=== PATIENT | female | born 1970 | race Caucasian/White ===

== ENCOUNTER 2017-03-24 09:00 | Emergency (ER) | payer MEDICAID ==
[2017-03-24] MEDS ORDERED: Doxycycline 100 MG Tab PO ONE (09:25)
[2017-03-24] MEDS ORDERED: Acetaminophen/HYDROcodone 325-5 MG Tab PO ONE (09:27)
--- NOTE | 2017-03-24 09:37 | EDM.PDOC ---
ED HPI GENERAL MEDICAL PROBLEM - General Chief Complaint: General Stated Complaint: CATALINO CHANGING COLOR AND PAINFUL Time Seen by Provider: 03/24/17 09:18 Source of Information: Reports: Patient, Family History Limitations: Reports: No Limitations - History of Present Illness INITIAL COMMENTS - FREE TEXT/NARRATIVE: 46 years old e f came to the ed this am due to pain at here left lat foot for a few days. Pt stated she felt a lump at the lateral side of her left foot as well. She is only able to walk on her heal at her left foot. Pt denied trauma, FB or be sting. No F/C or any other acute medical issues. Onset: Unknown/Unsure Onset Date: 03/23/17 Onset Time: 08:00 Duration: Hour(s): Location: Reports: Lower Extremity, Left Left Feet Pain Score (Numeric/FACES): 4 - Related Data Allergies Allergy/AdvReac Type Severity Reaction Status Date / Time citalopram Allergy Cannot Verified 03/24/17 09:10 Remember diphenhydramine HCl Allergy Hives Verified 03/24/17 09:10 [From Benadryl] gabapentin Allergy Hives Verified 03/24/17 09:10 ANTI-DEPRESSANTS Allergy Hives Uncoded 03/24/17 09:10 FLU SHOT Allergy GBS Uncoded 03/24/17 09:10 Home Meds: Home Meds Albuterol [Proventil HFA] 2 puff PO Q6H PRN 07/20/15 [History] Albuterol [Take Home: Albuterol 0.083%, 4 Neb Pack] 1 packet NEB QID 07/20/15 [ History] Tiotropium [Spiriva Handihaler] 1 puff INH DAILY 12/20/15 [History] ClonazePAM [KlonoPIN] 1 mg PO BID PRN 04/13/16 [History] Clotrimazole [Lotrimin AF 1% Crm] 30 gm TOP BID #1 tube 03/24/17 [Rx] Doxycycline [Vibra-Tabs] 100 mg PO Q12HR #20 tab 03/24/17 [Rx] Hydrocodone/Acetaminophen [Vicodin 5-300 mg Tablet] 1 each PO Q6HR PRN #12 tablet 03/24/17 [Rx] Potassium Chloride 10 meq PO DAILY 03/24/17 [History] Pregabalin [Lyrica] 200 mg PO TID 03/24/17 [History] amLODIPine [Norvasc] 5 mg PO DAILY 03/24/17 [History] buPROPion [Wellbutrin] 150 mg PO DAILY 03/24/17 [History] levETIRAcetam [Keppra] 1,000 mg PO BID 03/24/17 [History] Past Medical History HEENT History: Reports: Impaired Vision Cardiovascular History: Reports: Hypertension Respiratory History: Reports: COPD, Pneumonia, Recurrent Other Respiratory History: EMPHYSEMA Gastrointestinal History: Reports: Cholelithiasis, GERD, Irritable Bowel Syndrome Genitourinary History: Reports: Other (See Below) Other Genitourinary History: STATES HAD KIDNEY FAILURE TODDLER ET NO REASON GIVEN, 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 CARPAL TUNNEL SYNDROME Neurological History: Reports: Concussion, Migraines, Seizure Other Neuro History: STARTED IN 2013 Psychiatric History: Reports: Anxiety, Depression, Panic Attack - Infectious Disease History Infectious Disease History: Reports: Chicken Pox - Past Surgical History HEENT Surgical History: Reports: Oral Surgery, Tonsillectomy Cardiovascular Surgical History: Reports: Other (See Below) Other Cardiovascular Surgeries/Procedures: HISTORY OF LOOP HEART MONITOR IMPLANT ( WAS REMOVED ALREADY) Social & Family History - Family History Family Medical History: Noncontributory - Tobacco Use Smoking Status *Q: Current Every Day Smoker Years of Tobacco use: 37 Packs/Tins Daily: 1 Used Tobacco, but Quit: No Second Hand Smoke Exposure: Yes - Caffeine Use Caffeine Use: Reports: Soda - Recreational Drug Use Recreational Drug Use: No - Living Situation & Occupation Living situation: Reports: Single ED ROS GENERAL - Review of Systems Review Of Systems: See Below Constitutional: Reports: No Symptoms HEENT: Reports: No Symptoms Respiratory: Reports: No Symptoms Cardiovascular: Reports: No Symptoms Endocrine: Reports: No Symptoms GI/Abdominal: Reports: No Symptoms : Reports: No Symptoms Musculoskeletal: Reports: Foot Pain Skin: Reports: Rash Neurological: Reports: No Symptoms Psychiatric: Reports: No Symptoms Hematologic/Lymphatic: Reports: No Symptoms Immunologic: Reports: No Symptoms ED EXAM, GENERAL - Physical Exam Exam: See Below Exam Limited By: No Limitations General Appearance: Alert, WD/WN, Mild Distress Eye Exam: Bilateral Eye: Normal Inspection Ears: Normal External Exam Ear Exam: Bilateral Ear: Auricle Normal Nose: Normal Inspection, Normal Mucosa Throat/Mouth: Normal Inspection, Normal Lips Head: Atraumatic, Normocephalic Neck: Normal Inspection, Supple, Non-Tender Respiratory/Chest: No Respiratory Distress, Lungs Clear, Normal Breath Sounds Cardiovascular: Normal Peripheral Pulses, Regular Rate, Rhythm, No Edema Peripheral Pulses: 1+: Dorsalis Pedis (L), Dorsalis Pedis (R) GI/Abdominal: Normal Bowel Sounds (Female) Exam: Deferred Rectal (Female) Exam: Deferred Back Exam: Normal Inspection, Full Range of Motion Extremities: Other (redness of left foot, plantar aspect, minor fluctuating nodule left lat foot (0.5cmX0.5cm)) Neurological: Alert, Oriented, CN II-XII Intact, Normal Cognition, Abnormal Gait (due to foot pain) Psychiatric: Normal Affect, Normal Mood Skin Exam: Warm, Dry, Intact Lymphatic: No Adenopathy Course - Vital Signs Text/Narrative:: 46 years old e f came to the ed this am due to pain at here left lat foot for a few days. Pt stated she felt a lump at the lateral side of her left foot as well. She is only able to walk on her heal at her left foot. Pt denied trauma, FB or be sting. No F/C or any other acute medical issues. PE: WNWD w F plantar cellulitis, fungal, foliculitis left lat foot. Imaging: left foot, indurating soft tissue left foot. Official report is pending. Impression: left foot: plantar cellulitis, fungal, foliculitis left lat foot Tx: Abx. Vicodin Reexam: Improved Plan: Discharge with instructions Last Recorded V/S: Last Vital Signs Temp 36.4 C 03/24/17 10:05 Pulse 87 03/24/17 10:05 Resp 18 03/24/17 10:05 BP 112/78 03/24/17 10:05 Pulse Ox 100 03/24/17 10:05 - Orders/Labs/Meds Orders: Active Orders 24 hr Category Date Time Status Foot Comp Min 3V Lt [CR] Stat Exams 03/24/17 09:40 Taken DME for Discharge [COMM] Stat Oth 03/24/17 09:53 Ordered Meds: Medications Discontinued Medications Generic Name Dose Route Start Last Admin Trade Name Shazia PRN Reason Stop Dose Admin Hydrocodone Bitart/Acetaminophen 2 tab 03/24/17 09:27 03/24/17 09:34 Marquand 325-5 Mg PO 03/24/17 09:28 2 tab ONETIME ONE Administration Doxycycline Hyclate 200 mg 03/24/17 09:25 03/24/17 09:34 Vibra-Tabs PO 03/24/17 09:26 200 mg ONETIME ONE Administration Departure - Departure Time of Disposition: 09:53 Disposition: Home, Self-Care 01 Condition: Good Clinical Impression: Tinea pedis, left, Folliculitis Sprain of foot, left Qualifiers: Encounter type: initial encounter Qualified Code(s): S93.602A - Unspecified sprain of left foot, initial encounter - Discharge Information Prescriptions: Hydrocodone/Acetaminophen [Vicodin 5-300 mg Tablet] 1 each PO Q6HR PRN #12 tablet PRN Reason: severe pain Doxycycline [Vibra-Tabs] 100 mg PO Q12HR #20 tab Clotrimazole [Lotrimin AF 1% Crm] 30 gm TOP BID #1 tube Referrals: Garima Plunkett WIRE HARNESS DESIGN ENGINEER [Primary Care Provider] - Forms: ED Department Discharge Additional Instructions: Please apply lotrimin cream onto both feet twice daily, take motrin for moderate pain, vicodin for severe pain only, exchange your socks daily with clean socks, take Abx as recommended, please follow up with your pmd, please come back to the ed if your symptoms get worse acutely. - My Orders Last 24 Hours: My Active Orders 03/24/17 09:40 Foot Comp Min 3V Lt [CR] Stat 03/24/17 09:53 DME for Discharge [COMM] Stat - Assessment/Plan Last 24 Hours: My Active Orders 03/24/17 09:40 Foot Comp Min 3V Lt [CR] Stat 03/24/17 09:53 DME for Discharge [COMM] Stat
[2017-03-24 10:06] VITALS: BP 112/78
--- NOTE | 2017-03-26 12:01 | CR ---
INDICATION: Left foot pain, lateral side, no history of trauma. LEFT FOOT: Three views of the left foot revealed posterior calcaneal spur of small size. No other bone or joint abnormality was identified - no acute fracture or dislocation was seen. MICHAELD
== END 2017-03-24 10:05 | disposition home or self-care (01) ==
LOC: FB.ED 09:00
DX: S93.602A Unspecified sprain of left foot, initial encounter (principal); B35.3 Tinea pedis; L73.9 Follicular disorder, unspecified; I10 Essential (primary) hypertension; J44.9 Chronic obstructive pulmonary disease, unspecified; F32.9 Major depressive disorder, single episode, unspecified; F41.9 Anxiety disorder, unspecified; F17.210 Nicotine dependence, cigarettes, uncomplicated; Z87.01 Personal history of pneumonia (recurrent); Z88.8 Allergy status to other drugs, medicaments and biological substances; Z79.899 Other long term (current) drug therapy; X58.XXXA Exposure to other specified factors, initial encounter
CPT/HCPCS: 73630; 99283; A9270

== ENCOUNTER 2017-06-15 20:56 | Emergency (ER) | payer MEDICAID ==
[2017-06-15] MEDS ORDERED: Ondansetron 4 MG/2 ML SDV IVPUSH ONE (21:02)
[2017-06-15] MEDS ORDERED: Sodium Chloride 0.9% 1,000 ML IV ONE (21:02)
[2017-06-15] MEDS ORDERED: Alum Hydroxide/Mag Hydroxide 15 ML, Lidocaine 2% 15 ML PO ONE ×2 (21:03)
[2017-06-15] MEDS ORDERED: Pantoprazole 40 MG in Sodium Chloride 0.9% 100 ML IV ONE (21:03)
[2017-06-15 21:22] VITALS: BP 122/85
[2017-06-15] MEDS ORDERED: Sodium Chloride 0.9% 10 ML Syringe FLUSH PRN (21:34)
[2017-06-15] MEDS ORDERED: Pantoprazole 40 MG Vial IVPUSH ONE (22:00)
--- NOTE | 2017-06-15 22:38 | EDM.PDOC ---
ED HPI GENERAL MEDICAL PROBLEM - General Chief Complaint: Gastrointestinal Problem Stated Complaint: PUKING,DIARRHEA,ABD PAIN Time Seen by Provider: 06/15/17 21:18 Source of Information: Reports: Patient History Limitations: Reports: No Limitations - History of Present Illness INITIAL COMMENTS - FREE TEXT/NARRATIVE: 47 y.o.f with COPD, Fibromyalgia, disabled, came to the ed due to acute onset of n/v/d this am. Pt was not estella to eat and drink because of sever N/V/D. She has mid upper abd pain as well. BP 122/85 HR 104 No F/C Onset Date: 06/15/17 Onset Time: 06:00 Duration: Hour(s): Location: Reports: Abdomen Quality: Reports: Burning Severity: Mild Improves with: Reports: Rest Worsens with: Reports: Eating Context: Reports: Other (?) Associated Symptoms: Reports: Nausea/Vomiting, Other (diahhrea) Abdominal Pain Score (Numeric/FACES): 9 - Related Data Allergies Allergy/AdvReac Type Severity Reaction Status Date / Time citalopram Allergy Cannot Verified 06/15/17 21:14 Remember diphenhydramine HCl Allergy Hives Verified 03/24/17 09:10 [From Benadryl] gabapentin Allergy Hives Verified 06/15/17 21:14 ANTI-DEPRESSANTS Allergy Hives Uncoded 06/15/17 21:14 FLU SHOT Allergy GBS Uncoded 06/15/17 21:14 Home Meds: Home Meds Albuterol [Proventil HFA] 2 puff PO Q6H PRN 07/20/15 [History] Albuterol [Take Home: Albuterol 0.083%, 4 Neb Pack] 1 packet NEB QID 07/20/15 [ History] Tiotropium [Spiriva Handihaler] 1 puff INH DAILY 12/20/15 [History] ClonazePAM [KlonoPIN] 1 mg PO BID PRN 04/13/16 [History] Potassium Chloride 10 meq PO DAILY 03/24/17 [History] Pregabalin [Lyrica] 200 mg PO TID 03/24/17 [History] amLODIPine [Norvasc] 5 mg PO DAILY 03/24/17 [History] buPROPion [Wellbutrin] 150 mg PO DAILY 03/24/17 [History] levETIRAcetam [Keppra] 1,000 mg PO BID 03/24/17 [History] Ondansetron [Zofran ODT] 4 mg PO Q6H PRN #10 tab.dis 06/15/17 [Rx] Pantoprazole Sodium [Protonix] 40 mg PO DAILY #20 suspdr.pkt 06/15/17 [Rx] Past Medical History HEENT History: Reports: Impaired Vision Cardiovascular History: Reports: Hypertension Respiratory History: Reports: COPD, Pneumonia, Recurrent Other Respiratory History: EMPHYSEMA Gastrointestinal History: Reports: Cholelithiasis, GERD, Irritable Bowel Syndrome Genitourinary History: Reports: Other (See Below) Other Genitourinary History: STATES HAD KIDNEY FAILURE TODDLER ET NO REASON GIVEN, 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 CARPAL TUNNEL SYNDROME Neurological History: Reports: Concussion, Migraines, Seizure Other Neuro History: STARTED IN 2013 Psychiatric History: Reports: Anxiety, Depression, Panic Attack - Infectious Disease History Infectious Disease History: Reports: Chicken Pox - Past Surgical History HEENT Surgical History: Reports: Oral Surgery, Tonsillectomy Cardiovascular Surgical History: Reports: Other (See Below) Other Cardiovascular Surgeries/Procedures: HISTORY OF LOOP HEART MONITOR IMPLANT ( WAS REMOVED ALREADY) Social & Family History - Family History Family Medical History: Noncontributory - Tobacco Use Smoking Status *Q: Current Every Day Smoker Years of Tobacco use: 37 Packs/Tins Daily: 1 Used Tobacco, but Quit: No Second Hand Smoke Exposure: Yes - Caffeine Use Caffeine Use: Reports: Soda - Recreational Drug Use Recreational Drug Use: No - Living Situation & Occupation Living situation: Reports: Single ED ROS GENERAL - Review of Systems Review Of Systems: See Below Constitutional: Reports: Weakness, Fatigue HEENT: Reports: No Symptoms Respiratory: Reports: No Symptoms Cardiovascular: Reports: No Symptoms Endocrine: Reports: No Symptoms GI/Abdominal: Reports: Diarrhea, Nausea : Reports: No Symptoms Musculoskeletal: Reports: No Symptoms Skin: Reports: No Symptoms Neurological: Reports: No Symptoms Psychiatric: Reports: No Symptoms Hematologic/Lymphatic: Reports: No Symptoms Immunologic: Reports: No Symptoms ED EXAM, GI/ABD - Physical Exam Exam: See Below Exam Limited By: No Limitations General Appearance: Alert, WD/WN, Mild Distress, Obese Eyes: Bilateral: Normal Appearance Ears: Normal External Exam Nose: Normal Inspection Throat/Mouth: Normal Inspection Head: Atraumatic, Normocephalic Neck: Normal Inspection, Supple, Non-Tender Respiratory/Chest: No Respiratory Distress, Lungs Clear Cardiovascular: Normal Peripheral Pulses, Regular Rate, Rhythm GI/Abdominal Exam: Tender (epigastric) (Female) Exam: Deferred Rectal (Female) Exam: Deferred Back Exam: Normal Inspection, Full Range of Motion Extremities: Normal Inspection, Normal Range of Motion Neurological: Alert, Oriented, CN II-XII Intact, Normal Cognition, Normal Gait Psychiatric: Normal Affect, Normal Mood Skin Exam: Warm, Dry, Intact Lymphatic: No Adenopathy Course - Vital Signs Text/Narrative:: 47 y.o.f with COPD, Fibromyalgia, disabled, came to the ed due to acute onset of n/v/d this am. Pt was not estella to eat and drink because of sever N/V/D. She has mid upper abd pain as well. BP 122/85 HR 104 No F/C PE: Dry mucosal membrane, epigastric pain Labs: elevated WBC possible due to her vomiting Impression: Gastroenteritis, dehydration, gastritis. Tx: Zofran, Protonix, GI cocktail, NS Reexam; Pt was doing better, was able to drink water and requested to be d/c because her ride is waiting. Plan: D/C with instructions Last Recorded V/S: Last Vital Signs Temp 35.9 C 06/15/17 21:18 Pulse 104 H 06/15/17 21:18 Resp 20 06/15/17 21:18 BP 122/85 06/15/17 21:18 Pulse Ox 98 06/15/17 21:18 - Orders/Labs/Meds Orders: Active Orders 24 hr Category Date Time Status Saline Lock Insert [OM.PC] Routine Oth 06/15/17 21:34 Ordered Labs: Laboratory Tests 06/15/17 06/15/17 Range/Units 21:25 21:25 WBC 17.6 H (4.5-12.0) X10-3/uL RBC 5.70 H (3.23-5.20) x10(6)uL Hgb 17.0 H (11.5-15.5) g/dL Hct 51.3 (30.0-51.3) % MCV 90.0 (80-96) fL MCH 29.8 (27.7-33.6) pg MCHC 33.1 (32.2-35.4) g/dL RDW 14.4 (11.5-15.5) % Plt Count 259 (125-369) X10(3)uL MPV 9.1 (7.4-10.4) fL Neut % (Auto) 74.7 (46-82) % Lymph % (Auto) 15.3 (13-37) % Latimer % (Auto) 6.1 (4-12) % Eos % (Auto) 3 (1.0-5.0) % Baso % (Auto) 1 (0-2) % Neut # (Auto) 13.0 H (1.6-8.3) # Lymph # (Auto) 2.7 (0.6-5.0) # Latimer # (Auto) 1.1 (0.0-1.3) # Eos # (Auto) 0.5 (0.0-0.8) # Baso # (Auto) 0.2 (0.0-0.2) # Sodium 137 (135-145) mmol/L Potassium 3.9 (3.5-5.3) mmol/L Chloride 104 (100-110) mmol/L Carbon Dioxide 21 L (23-29) mmol/L BUN 19 D (5-20) mg/dL Creatinine 0.9 (0.6-1.3) mg/dL Est Cr Clr Drug Dosing 78.79 mL/min Estimated GFR (MDRD) > 60 (>60) BUN/Creatinine Ratio 21.1 H (9-20) Glucose 138 H (80-116) mg/dL Calcium 9.7 (8.6-10.2) mg/dL Total Bilirubin 0.9 (0.1-1.3) mg/dL Direct Bilirubin 0.2 (0.1-0.2) mg/dL AST 25 (5-27) IU/L ALT 33 H D (14-26) IU/L Alkaline Phosphatase 133 H (56-112) IU/L Total Protein 8.7 H (6.0-8.0) g/dL Albumin 4.7 (3.5-5.2) g/dL Amylase 37 (28-100) U/L Meds: Medications Discontinued Medications Generic Name Dose Route Start Last Admin Trade Name Freq PRN Reason Stop Dose Admin Al Hydroxide/Mg Hydroxide 15 0 ml 06/15/17 21:03 06/15/17 22:03 ml/ Lidocaine HCl 15 ml PO 06/15/17 21:04 30 ml ONETIME ONE Administration Sodium Chloride 1,000 mls @ 999 mls/hr 06/15/17 21:02 06/15/17 21:44 Normal Saline IV 06/15/17 22:02 999 mls/hr .BOLUS ONE Administration Pantoprazole Sodium 40 mg/ 100 mls @ 200 mls/hr 06/15/17 21:03 06/15/17 21:58 Sodium Chloride IV 06/15/17 21:32 Not Given .BOLUS ONE Ondansetron HCl 8 mg 06/15/17 21:02 06/15/17 21:51 Zofran IVPUSH 06/15/17 21:03 8 mg ONETIME ONE Administration Pantoprazole Sodium 40 mg 06/15/17 22:00 06/15/17 22:02 Protonix Iv IVPUSH 06/15/17 22:01 40 mg ONETIME ONE Administration Sodium Chloride 10 ml 06/15/17 21:34 06/15/17 21:43 Saline Flush FLUSH 10 ml ASDIRECTED PRN Administration Keep Vein Open Departure - Departure Time of Disposition: 22:42 Disposition: Home, Self-Care 01 Condition: Good Clinical Impression: Gastroenteritis, Dehydration Gastritis Qualifiers: Gastritis type: unspecified gastritis Chronicity: acute Gastritis bleeding: without bleeding Qualified Code(s): K29.00 - Acute gastritis without bleeding - Discharge Information Prescriptions: Ondansetron [Zofran ODT] 4 mg PO Q6H PRN #10 tab.dis PRN Reason: Nausea Pantoprazole Sodium [Protonix] 40 mg PO DAILY #20 suspdr.pkt Referrals: Garima Plunkett AUTOMOTIVE PARTS COUNTER PERSON [Primary Care Provider] - Forms: ED Department Discharge Additional Instructions: Please advance diet diet as tolerated. Please take the meds as recommended, please advance diet as tolerated, please f/u, please come back if your symptoms get worse acutely. - My Orders Last 24 Hours: My Active Orders 06/15/17 21:34 Saline Lock Insert [OM.PC] Routine - Assessment/Plan Last 24 Hours: My Active Orders 06/15/17 21:34 Saline Lock Insert [OM.PC] Routine
== END 2017-06-15 23:01 | disposition home or self-care (01) ==
LOC: FB.ED 20:56
DX: K52.9 Noninfective gastroenteritis and colitis, unspecified (principal); K29.00 Acute gastritis without bleeding; E86.0 Dehydration; I10 Essential (primary) hypertension; K21.9 Gastro-esophageal reflux disease without esophagitis; G43.909 Migraine, unspecified, not intractable, without status migrainosus; F41.9 Anxiety disorder, unspecified; F32.9 Major depressive disorder, single episode, unspecified; F17.210 Nicotine dependence, cigarettes, uncomplicated; Z88.8 Allergy status to other drugs, medicaments and biological substances; Z79.899 Other long term (current) drug therapy; Z87.01 Personal history of pneumonia (recurrent)
CPT/HCPCS: 36415; 80048; 80076; 82150; 85025; 96361; 96374; 96375; 99284; A9270; C9113; J2405; J7040; J7050

== ENCOUNTER 2017-10-13 18:12 | Emergency (ER) | payer MEDICAID ==
--- NOTE | 2017-10-13 18:22 | EDM.PDOC ---
ED HPI GENERAL MEDICAL PROBLEM - General Chief Complaint: Back Pain or Injury Stated Complaint: BACK PAIN Time Seen by Provider: 10/13/17 18:12 Source of Information: Reports: Patient, Family History Limitations: Reports: Physical Impairment - History of Present Illness INITIAL COMMENTS - FREE TEXT/NARRATIVE: 47 y.o.w.f with a h/o chronic low back pain her lasr MRI from 09/14/2017 showed diffuse degenerative changes with areas of neuronal narrowing of her lumbar spine. The current plan is physical Thx and then Surgery. Pt denied new trauma, she got up this morning and felt her mid lower back pain is worse. she denies stool incontinence. However, her urine incontinence is chronic. She felt as well , her numbness of left leg down to the heal is a little worse. Her home arian did not help. No N/V/D or any other acute medical issues. BP 157/100 temp 37.1 pulse 78 Pulse ox 97% on RA Onset Date: 10/12/17 Onset Time: 08:00 Duration: Day(s):, Getting Worse, Intermittent Location: Reports: Back Back Pain Score (Numeric/FACES): 10 - Related Data Allergies Allergy/AdvReac Type Severity Reaction Status Date / Time citalopram Allergy Cannot Verified 10/13/17 19:07 Remember diphenhydramine HCl Allergy Hives Verified 10/13/17 19:07 [From Benadryl] gabapentin Allergy Hives Verified 10/13/17 19:07 ANTI-DEPRESSANTS Allergy Hives Uncoded 10/13/17 19:07 FLU SHOT Allergy GBS Uncoded 10/13/17 19:07 Home Meds: Home Meds Albuterol [Proventil HFA] 2 puff PO Q6H PRN 07/20/15 [History] Albuterol [Take Home: Albuterol 0.083%, 4 Neb Pack] 1 packet NEB QID 07/20/15 [ History] Tiotropium [Spiriva Handihaler] 1 puff INH DAILY 12/20/15 [History] ClonazePAM [KlonoPIN] 1 mg PO BID PRN 04/13/16 [History] Potassium Chloride 10 meq PO DAILY 03/24/17 [History] Pregabalin [Lyrica] 200 mg PO TID 03/24/17 [History] amLODIPine [Norvasc] 5 mg PO DAILY 03/24/17 [History] buPROPion [Wellbutrin] 150 mg PO DAILY 03/24/17 [History] levETIRAcetam [Keppra] 1,000 mg PO BID 03/24/17 [History] Ondansetron [Zofran ODT] 4 mg PO Q6H PRN #10 tab.dis 06/15/17 [Rx] Pantoprazole Sodium [Protonix] 40 mg PO DAILY #20 suspdr.pkt 06/15/17 [Rx] Past Medical History HEENT History: Reports: Impaired Vision Cardiovascular History: Reports: Hypertension Respiratory History: Reports: COPD, Pneumonia, Recurrent Other Respiratory History: EMPHYSEMA Gastrointestinal History: Reports: Cholelithiasis, GERD, Irritable Bowel Syndrome Genitourinary History: Reports: Other (See Below) Other Genitourinary History: STATES HAD KIDNEY FAILURE TODDLER ET NO REASON GIVEN, 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 CARPAL TUNNEL SYNDROME Neurological History: Reports: Concussion, Migraines, Seizure Other Neuro History: STARTED IN 2013 Psychiatric History: Reports: Anxiety, Depression, Panic Attack - Infectious Disease History Infectious Disease History: Reports: Chicken Pox - Past Surgical History HEENT Surgical History: Reports: Oral Surgery, Tonsillectomy Cardiovascular Surgical History: Reports: Other (See Below) Other Cardiovascular Surgeries/Procedures: HISTORY OF LOOP HEART MONITOR IMPLANT ( WAS REMOVED ALREADY) Social & Family History - Family History Family Medical History: Noncontributory - Tobacco Use Smoking Status *Q: Current Every Day Smoker Years of Tobacco use: 37 Packs/Tins Daily: 1 Used Tobacco, but Quit: No Second Hand Smoke Exposure: Yes - Caffeine Use Caffeine Use: Reports: Soda - Recreational Drug Use Recreational Drug Use: No - Living Situation & Occupation Living situation: Reports: Single ED ROS GENERAL - Review of Systems Review Of Systems: See Below Constitutional: Reports: No Symptoms HEENT: Reports: No Symptoms Respiratory: Reports: No Symptoms Cardiovascular: Reports: No Symptoms Endocrine: Reports: No Symptoms GI/Abdominal: Reports: No Symptoms : Reports: No Symptoms Musculoskeletal: Reports: Back Pain Skin: Reports: No Symptoms Neurological: Reports: No Symptoms Psychiatric: Reports: No Symptoms Hematologic/Lymphatic: Reports: No Symptoms Immunologic: Reports: No Symptoms ED EXAM,LOWER BACK PAIN/INJURY - Physical Exam Exam: See Below Exam Limited By: Physical Impairment General Appearance: Alert, WD/WN, Obese Eye Exam: Bilateral Eye: Normal Inspection Ears: Normal External Exam, Normal Canal Nose: Normal Inspection, Normal Mucosa, No Blood Throat/Mouth: Normal Inspection, Normal Lips Head: Atraumatic, Normocephalic Neck: Normal Inspection, Supple, Non-Tender, Full Range of Motion Respiratory/Chest: No Respiratory Distress, Lungs Clear, Normal Breath Sounds Cardiovascular: Normal Peripheral Pulses, Regular Rate, Rhythm GI/Abdominal: Normal Bowel Sounds, Soft, Non-Tender (Female) Exam: Deferred Rectal (Female) Exam: Deferred Back Exam: Normal Inspection, Decreased Range of Motion (mid lower back), Muscle Spasm Extremities: Normal Inspection, Normal Range of Motion, Normal Capillary Refill Neurological: Alert, Normal Mood/Affect, CN II-XII Intact, Oriented x 3, Abnormal Gait (due to low back pain), Difficulty Walking Psychiatric: Normal Affect, Normal Mood Skin Exam: Warm, Dry, Intact, Normal Color, No Rash Lymphatic: No Adenopathy Course - Vital Signs Text/Narrative:: 47 y.o.w.f with a h/o chronic low back pain her lasr MRI from 09/14/2017 showed diffuse degenerative changes with areas of neuronal narrowing of her lumbar spine. The current plan is physical Thx and then Surgery. Pt denied new trauma, she got up this morning and felt her mid lower back pain is worse. she denies stool incontinence. However, her urine incontinence is chronic. She felt as well , her numbness of left leg down to the heal is a little worse. Her home arian did not help. No N/V/D or any other acute medical issues. BP 157/100 temp 37.1 pulse 78 Pulse ox 97% on RA P{E; WNWD very pleasant WF with low back pain Imaging: last MRI 09/14/2017 showed gen deg disease with bilat naural foramina narrowing. Impression: chronic low back pain with exacerbation Tx: Toradol, ICE take home percocet. Reexam: Pt was able to ambulate without help Plan: D/C with instructions Last Recorded V/S: Last Vital Signs Temp 36.8 C 10/13/17 18:17 Pulse 70 10/13/17 18:17 Resp 16 10/13/17 18:17 BP 126/98 H 10/13/17 19:00 Pulse Ox 98 10/13/17 18:17 - Orders/Labs/Meds Orders: Active Orders 24 hr Category Date Time Status Cooling Warming Measures [RC] ASDIRECTED Care 10/13/17 18:24 Active Ice Bag [Ice Therapy] [OM.PC] Routine Oth 10/13/17 18:24 Ordered Meds: Medications Discontinued Medications Generic Name Dose Route Start Last Admin Trade Name Shazia PRN Reason Stop Dose Admin Ketorolac Tromethamine 60 mg 10/13/17 18:23 10/13/17 18:33 Toradol IM 10/13/17 18:24 60 mg ONETIME ONE Administration Departure - Departure Time of Disposition: 18:54 Disposition: Home, Self-Care 01 Condition: Good Clinical Impression: Low back pain Qualifiers: Chronicity: unspecified Back pain laterality: midline Sciatica presence: with sciatica Sciatica laterality: sciatica of left side Qualified Code(s): M54.42 - Lumbago with sciatica, left side - Discharge Information Instructions: Back Pain, Adult, [id number] Referrals: Garima Plunkett NEWSPAPER VENDOR [Primary Care Provider] - Forms: ED Department Discharge Additional Instructions: Please apply ICE to lower back, please take motrin for mod pain. percocet fpr severe pain only. Please f/u, come back if your symptoms get worse acutely - My Orders Last 24 Hours: My Active Orders 10/13/17 18:24 Cooling Warming Measures [RC] ASDIRECTED Ice Bag [Ice Therapy] [OM.PC] Routine - Assessment/Plan Last 24 Hours: My Active Orders 10/13/17 18:24 Cooling Warming Measures [RC] ASDIRECTED Ice Bag [Ice Therapy] [OM.PC] Routine
[2017-10-13] MEDS ORDERED: Ketorolac 60 MG/2 ML SDV IM ONE (18:23)
[2017-10-13] MEDS ORDERED: Acetaminophen/oxyCODONE 325-5 MG Tab PO ONE (19:02)
[2017-10-13 19:15] VITALS: BP 126/98
== END 2017-10-13 19:00 | disposition home or self-care (01) ==
LOC: FB.ED 18:12
DX: M54.42 Lumbago with sciatica, left side (principal); I10 Essential (primary) hypertension; J44.9 Chronic obstructive pulmonary disease, unspecified; K21.9 Gastro-esophageal reflux disease without esophagitis; F17.210 Nicotine dependence, cigarettes, uncomplicated; Z88.8 Allergy status to other drugs, medicaments and biological substances; Z79.899 Other long term (current) drug therapy
CPT/HCPCS: 96372; 99283; J1885; A9270-GY

== ENCOUNTER 2017-12-26 19:51 | Emergency (ER) | payer MEDICAID ==
[2017-12-26 20:17] VITALS: BP 115/73
[2017-12-26] MEDS ORDERED: Morphine 4 MG/ML Syringe IM ONE (20:26)
--- NOTE | 2017-12-27 05:28 | ER ---
DATE SEEN: 12/26/2017 CHIEF COMPLAINT: Neck pain. HISTORY OF PRESENT ILLNESS: This is a 47-year-old female complaining of pain in the left side of the neck and swelling. Her daughter noticed that she was so bruised around that area. This started tonight. No chest pain or shortness of breath. PAST MEDICAL HISTORY: Chronic back pain moderate to severe. SOCIAL HISTORY: Smoker. PHYSICAL EXAMINATION: GENERAL: Not in distress. VITAL SIGNS: Blood pressure is normal. Pulse is 96, temperature 97.5. HEAD: Normal size. NECK: No thyromegaly. There is lymphadenopathy on the left side. OROPHARYNX: No lesions. She is edentulous. CHEST: Clear. MUSCULOSKELETAL: Lower back, she is in a wheelchair. Normal and symmetric deep tendon reflexes. LABS: Strep negative. FINAL IMPRESSION: 1. Lymphadenitis, cervical. 2. Chronic back pain with moderate exacerbation. Treatment is morphine 4 mg IM, supportive therapy with Tylenol and ibuprofen, and then see PCP tomorrow morning. TIME SEEN: 2000 hours. /[id number] ASHLEY/JOE
== END 2017-12-26 20:50 | disposition home or self-care (01) ==
LOC: FB.ED 19:51
DX: I88.9 Nonspecific lymphadenitis, unspecified (principal); M54.9 Dorsalgia, unspecified; G89.29 Other chronic pain
CPT/HCPCS: 87081; 87880; 96372; 99283; J2270

== ENCOUNTER 2018-01-15 18:22 | Emergency (ER) | payer MEDICAID ==
--- NOTE | 2018-01-15 19:27 | EDM.PDOC ---
ED HPI GENERAL MEDICAL PROBLEM - General Chief Complaint: General Stated Complaint: BODY ACHES, SICK 4 DAYS Time Seen by Provider: 01/15/18 19:22 Source of Information: Reports: Patient History Limitations: Reports: No Limitations - History of Present Illness INITIAL COMMENTS - FREE TEXT/NARRATIVE: Complains of 4 days of bodyaches, cough and diarrhea. Patient believes may be due to fibromyalgia flare. Duration: Day(s): (4) Location: Reports: Other (Generalized) Quality: Reports: Ache Severity: Moderate Improves with: Reports: None Worsens with: Reports: None Associated Symptoms: Reports: Cough. Denies: Nausea/Vomiting whole body Pain Score (Numeric/FACES): 10 - Related Data Allergies Allergy/AdvReac Type Severity Reaction Status Date / Time citalopram Allergy Cannot Verified 01/15/18 21:16 Remember diphenhydramine HCl Allergy Hives Verified 01/15/18 21:16 [From Benadryl] gabapentin Allergy Hives Verified 01/15/18 21:16 ANTI-DEPRESSANTS Allergy Hives Uncoded 01/15/18 21:16 FLU SHOT Allergy GBS Uncoded 01/15/18 21:16 Home Meds: Home Meds Albuterol [Proventil HFA] 2 puff PO Q6H PRN 07/20/15 [History] Albuterol [Take Home: Albuterol 0.083%, 4 Neb Pack] 1 packet NEB QID 07/20/15 [ History] Tiotropium [Spiriva Handihaler] 1 puff INH DAILY 12/20/15 [History] ClonazePAM [KlonoPIN] 1 mg PO BID PRN 04/13/16 [History] Potassium Chloride 10 meq PO DAILY 03/24/17 [History] Pregabalin [Lyrica] 200 mg PO TID 03/24/17 [History] amLODIPine [Norvasc] 5 mg PO DAILY 03/24/17 [History] buPROPion [Wellbutrin] 150 mg PO DAILY 03/24/17 [History] levETIRAcetam [Keppra] 1,000 mg PO BID 03/24/17 [History] Loperamide [Imodium] 2 mg PO Q6H PRN #15 cap 01/15/18 [Rx] Past Medical History HEENT History: Reports: Impaired Vision Cardiovascular History: Reports: Hypertension, Other (See Below) Other Cardiovascular History: Low potassium Respiratory History: Reports: COPD, Pneumonia, Recurrent Other Respiratory History: EMPHYSEMA Gastrointestinal History: Reports: Cholelithiasis, GERD, Irritable Bowel Syndrome Genitourinary History: Reports: Other (See Below) Other Genitourinary History: STATES HAD KIDNEY FAILURE TODDLER ET NO REASON GIVEN, 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 CARPAL TUNNEL SYNDROME Neurological History: Reports: Concussion, Migraines, Seizure Other Neuro History: STARTED IN 2013 Psychiatric History: Reports: Anxiety, Depression, Panic Attack - Infectious Disease History Infectious Disease History: Reports: Chicken Pox - Past Surgical History HEENT Surgical History: Reports: Oral Surgery, Tonsillectomy Cardiovascular Surgical History: Reports: Other (See Below) Other Cardiovascular Surgeries/Procedures: HISTORY OF LOOP HEART MONITOR IMPLANT ( WAS REMOVED ALREADY) GI Surgical History: Reports: Cholecystectomy Female Surgical History: Reports: Hysterectomy Social & Family History - Family History Family Medical History: Noncontributory - Tobacco Use Smoking Status *Q: Current Every Day Smoker Tobacco Use Within Last Twelve Months: Cigarettes Years of Tobacco use: 30 Packs/Tins Daily: 1 Used Tobacco, but Quit: No Second Hand Smoke Exposure: Yes - Caffeine Use Caffeine Use: Reports: Soda - Alcohol Use Alcohol Use in Last Twelve Months: No - Recreational Drug Use Recreational Drug Use: No - Living Situation & Occupation Living situation: Reports: Single ED ROS GENERAL - Review of Systems Review Of Systems: See Below Constitutional: Reports: Fatigue, Other (has not eaten in 2 days due to diarrhea ) HEENT: Reports: No Symptoms Respiratory: Reports: Cough. Denies: Shortness of Breath Cardiovascular: Reports: No Symptoms Endocrine: Reports: No Symptoms GI/Abdominal: Reports: Abdominal Pain, Diarrhea. Denies: Vomiting : Reports: No Symptoms Musculoskeletal: Reports: Other (generalized pain) Skin: Reports: No Symptoms Neurological: Reports: No Symptoms Psychiatric: Reports: No Symptoms Hematologic/Lymphatic: Reports: No Symptoms Immunologic: Reports: No Symptoms ED EXAM, GENERAL - Physical Exam Exam: See Below Exam Limited By: No Limitations General Appearance: Alert, WD/WN, No Apparent Distress Nose: Normal Inspection Throat/Mouth: Normal Inspection, Normal Lips, Normal Gums, Normal Oropharynx, Normal Voice, No Airway Compromise Head: Atraumatic, Normocephalic Neck: Normal Inspection, Supple Respiratory/Chest: No Respiratory Distress, Lungs Clear, Normal Breath Sounds, No Accessory Muscle Use Cardiovascular: Regular Rate, Rhythm, No Gallop, No Murmur, No Rub GI/Abdominal: Normal Bowel Sounds, Soft, No Distention, No Mass, Tender (mild RLQ) (Female) Exam: Deferred Rectal (Female) Exam: Deferred Extremities: Normal Inspection, Normal Range of Motion Neurological: Alert, Oriented, Normal Cognition Psychiatric: Normal Affect, Normal Mood Skin Exam: Warm, Dry, Intact EKG INTERPRETATION EKG Date: 01/15/18 Time: 19:30 Rhythm: NSR Rate (Beats/Min): 97 EKG Interpretation Comments: No ischemic abnormalities Course - Vital Signs Last Recorded V/S: Last Vital Signs Temp 37.2 C 01/15/18 22:30 Pulse 86 01/15/18 22:30 Resp 16 01/15/18 22:30 BP 108/81 01/15/18 22:30 Pulse Ox 96 01/15/18 22:30 - Orders/Labs/Meds Orders: Active Orders 24 hr Category Date Time Status EKG Documentation Completion [RC] ASDIRECTED Care 01/15/18 19:21 Active CXR [Chest 2V] [CR] Stat Exams 01/15/18 19:21 Taken CULTURE URINE [RM] Stat Lab 01/15/18 20:41 Ordered HCG QUALITATIVE,URINE [URCHEM] Stat Lab 01/15/18 20:29 Ordered UA W/MICROSCOPIC [URIN] Stat Lab 01/15/18 20:29 Ordered UA W/MICROSCOPIC [URIN] Stat Lab 01/15/18 22:55 Ordered EKG 12 Lead [EK] Stat Ther 01/15/18 19:21 Ordered Labs: Laboratory Tests 01/15/18 01/15/18 01/15/18 Range/Units 19:35 19:35 20:29 WBC 8.9 (4.5-12.0) X10-3/uL RBC 5.55 H (3.23-5.20) x10(6)uL Hgb 17.1 H (11.5-15.5) g/dL Hct 50.8 (30.0-51.3) % MCV 91.6 (80-96) fL MCH 30.9 (27.7-33.6) pg MCHC 33.7 (32.2-35.4) g/dL RDW 12.8 (11.5-15.5) % Plt Count 163 (125-369) X10(3)uL MPV 9.6 (7.4-10.4) fL Neut % (Auto) 64.0 (46-82) % Lymph % (Auto) 22.7 (13-37) % [place] % (Auto) 10.8 (4-12) % Eos % (Auto) 0 L (1.0-5.0) % Baso % (Auto) 2 (0-2) % Neut # (Auto) 5.7 (1.6-8.3) # Lymph # (Auto) 2.0 (0.6-5.0) # [place] # (Auto) 1.0 (0.0-1.3) # Eos # (Auto) 0.0 (0.0-0.8) # Baso # (Auto) 0.2 (0.0-0.2) # Sodium 138 (135-145) mmol/L Potassium 4.3 (3.5-5.3) mmol/L Chloride 101 (100-110) mmol/L Carbon Dioxide 25 (21-32) mmol/L BUN 16 (7-18) mg/dL Creatinine 2.0 H* (0.55-1.02) mg/dL Est Cr Clr Drug Dosing TNP Estimated GFR (MDRD) 27 L (>60) BUN/Creatinine Ratio 8.0 L (9-20) Glucose 104 (80-116) mg/dL Calcium 9.4 (8.6-10.2) mg/dL Total Bilirubin 0.3 (0.1-1.3) mg/dL AST 35 H (5-25) IU/L ALT 37 H (12-36) U/L Alkaline Phosphatase 98 (56-112) IU/L Total Protein 7.8 (6.0-8.0) g/dL Albumin 3.8 (3.5-5.2) g/dL Globulin 4.0 g/dL Albumin/Globulin Ratio 1.0 Urine Color Yellow (YELLOW) Urine Appearance Slightly cloudy (CLEAR) Urine pH 5.0 (5.0-6.5) Ur Specific [place] 1.020 (1.010-1.025) Urine Protein Trace (NEGATIVE) mg/dL Urine Glucose (UA) Normal (NEGATIVE) mg/dL Urine Ketones Negative (NEGATIVE) mg/dL Urine Occult Blood Moderate H (NEGATIVE) Urine Nitrite Negative (NEGATIVE) Urine Bilirubin Small H (NEGATIVE) Urine Urobilinogen Normal (NEGATIVE) mg/dL Ur Leukocyte Esterase Negative (NEGATIVE) Urine RBC 10-20 H (0) Urine WBC 5-10 (0) Ur Squamous Epith Cells Many H (NS,R,O) Urine Bacteria Many H (NS) Hyaline Casts Moderate H (NS) Urine HCG, Qual (NEGATIVE) 01/15/18 01/15/18 01/15/18 Range/Units 20:29 22:55 23:10 WBC (4.5-12.0) X10-3/uL RBC (3.23-5.20) x10(6)uL Hgb (11.5-15.5) g/dL Hct (30.0-51.3) % MCV (80-96) fL MCH (27.7-33.6) pg MCHC (32.2-35.4) g/dL RDW (11.5-15.5) % Plt Count (125-369) X10(3)uL MPV (7.4-10.4) fL Neut % (Auto) (46-82) % Lymph % (Auto) (13-37) % [place] % (Auto) (4-12) % Eos % (Auto) (1.0-5.0) % Baso % (Auto) (0-2) % Neut # (Auto) (1.6-8.3) # Lymph # (Auto) (0.6-5.0) # [place] # (Auto) (0.0-1.3) # Eos # (Auto) (0.0-0.8) # Baso # (Auto) (0.0-0.2) # Sodium (135-145) mmol/L Potassium (3.5-5.3) mmol/L Chloride (100-110) mmol/L Carbon Dioxide (21-32) mmol/L BUN (7-18) mg/dL Creatinine 1.5 H (0.55-1.02) mg/dL Est Cr Clr Drug Dosing 43.87 Estimated GFR (MDRD) 37 L (>60) BUN/Creatinine Ratio (9-20) Glucose (80-116) mg/dL Calcium (8.6-10.2) mg/dL Total Bilirubin (0.1-1.3) mg/dL AST (5-25) IU/L ALT (12-36) U/L Alkaline Phosphatase (56-112) IU/L Total Protein (6.0-8.0) g/dL Albumin (3.5-5.2) g/dL Globulin g/dL Albumin/Globulin Ratio Urine Color Yellow (YELLOW) Urine Appearance Clear (CLEAR) Urine pH 5.0 (5.0-6.5) Ur Specific [place] 1.010 (1.010-1.025) Urine Protein Negative (NEGATIVE) mg/dL Urine Glucose (UA) Normal (NEGATIVE) mg/dL Urine Ketones Negative (NEGATIVE) mg/dL Urine Occult Blood Negative (NEGATIVE) Urine Nitrite Negative (NEGATIVE) Urine Bilirubin Negative (NEGATIVE) Urine Urobilinogen Normal (NEGATIVE) mg/dL Ur Leukocyte Esterase Negative (NEGATIVE) Urine RBC 0-5 (0) Urine WBC 0-5 (0) Ur Squamous Epith Cells Few H (NS,R,O) Urine Bacteria Few H (NS) Hyaline Casts (NS) Urine HCG, Qual Negative (NEGATIVE) Meds: Medications Discontinued Medications Generic Name Dose Route Start Last Admin Trade Name Freq PRN Reason Stop Dose Admin Sodium Chloride 1,000 mls @ 999 mls/hr 01/15/18 20:00 01/15/18 21:52 Normal Saline IV 999 mls/hr .BOLUS BETTY Administration Loperamide HCl 4 mg 01/15/18 20:31 01/15/18 20:42 Imodium PO 01/15/18 20:32 4 mg ONETIME ONE Administration Morphine Sulfate 2 mg 01/15/18 22:19 01/15/18 23:03 Morphine IVPUSH 01/15/18 22:20 Not Given ONETIME ONE Morphine Sulfate 2 mg 01/15/18 22:45 01/15/18 23:02 Morphine IVPUSH 01/15/18 22:46 2 mg NOW ONE Administration - Radiology Interpretation Free Text/Narrative:: CXR: NAD - Re-Assessments/Exams Free Text/Narrative Re-Assessment/Exam: 01/15/18 23:55 Pain has improved. Creatinine improved to 1.5 after 2L NS Departure - Departure Time of Disposition: 23:57 Disposition: Home, Self-Care 01 Condition: Good Clinical Impression: IJEOMA (acute kidney injury), Diarrhea, Body aches - Discharge Information Prescriptions: Loperamide [Imodium] 2 mg PO Q6H PRN #15 cap PRN Reason: Diarrhea Instructions: Acute Kidney Injury, Adult, Diarrhea, Adult Referrals: Garima Plunkett SEWING MACHINE OPERATOR FLOORPERSON [Primary Care Provider] - Forms: ED Department Discharge Additional Instructions: Drink plenty of fluids. Follow up with your primary physician in 2 days. - Problem List & Annotations (1) IJEOMA (acute kidney injury) SNOMED Code(s): 43381066 Code(s): N17.9 - ACUTE KIDNEY FAILURE, UNSPECIFIED Status: Acute Current Visit: Yes Annotation/Comment:: Likely due to dehydration. Push PO fluids. Follow up with PMD in 2 days (2) Body aches SNOMED Code(s): 19699705 Code(s): R52 - PAIN, UNSPECIFIED Status: Acute Current Visit: Yes Annotation/Comment:: Likely due to Fibromyalgia flare, continue Lyrica (3) Diarrhea SNOMED Code(s): 12756848 Code(s): R19.7 - DIARRHEA, UNSPECIFIED Status: Acute Current Visit: Yes Annotation/Comment:: Rx Immodium, push fluids Qualifiers: Diarrhea type: unspecified type Qualified Code(s): R19.7 - Diarrhea, unspecified - Problem List Review Problem List Initiated/Reviewed/Updated: Yes - My Orders Last 24 Hours: My Active Orders 01/15/18 19:21 EKG Documentation Completion [RC] ASDIRECTED CXR [Chest 2V] [CR] Stat EKG 12 Lead [EK] Stat 01/15/18 20:29 HCG QUALITATIVE,URINE [URCHEM] Stat UA W/MICROSCOPIC [URIN] Stat 01/15/18 20:41 CULTURE URINE [RM] Stat 01/15/18 22:55 UA W/MICROSCOPIC [URIN] Stat - Assessment/Plan Last 24 Hours: My Active Orders 01/15/18 19:21 EKG Documentation Completion [RC] ASDIRECTED CXR [Chest 2V] [CR] Stat EKG 12 Lead [EK] Stat 01/15/18 20:29 HCG QUALITATIVE,URINE [URCHEM] Stat UA W/MICROSCOPIC [URIN] Stat 01/15/18 20:41 CULTURE URINE [RM] Stat 01/15/18 22:55 UA W/MICROSCOPIC [URIN] Stat
[2018-01-15] MEDS ORDERED: Loperamide 2 MG Cap PO ONE (20:31)
[2018-01-15] MEDS: Sodium Chloride 0.9% 1,000 ML IV SCH ×2 (20:42→21:52)
[2018-01-15] MEDS ORDERED: Morphine 2 MG/ML Syringe IVPUSH ONE (22:19)
[2018-01-15] MEDS ORDERED: Morphine 4 MG/ML Syringe IVPUSH ONE (22:45)
[2018-01-16 01:36] VITALS: BP 106/76
--- NOTE | 2018-01-16 12:03 | CR ---
INDICATION: Chronic cough, history of COPD. CHEST: PA and lateral views of the chest, 01/15/2018, were compared with 2015, and again revealed evidence of exogenous obesity. The heart may be very slightly increased in size, compared with the previous study, but remains within normal limits. Mediastinum and bony thorax were otherwise unremarkable. A definite active infiltrate or effusion was not identified, with markings appearing unchanged from the previous study. Mildly flattened diaphragm leaves, prominent AP diameter, raise question of a mild degree of COPD - correlate clinically. IMPRESSION: Fairly stable appearance of the chest, except for slightly increased flattening of diaphragm leaves, suggesting progressive COPD - no definite acute process, although exacerbation of COPD could be present. MTDD
== END 2018-01-16 00:20 | disposition home or self-care (01) ==
LOC: FB.ED 18:22
DX: N17.9 Acute kidney failure, unspecified (principal); R19.7 Diarrhea, unspecified; R52 Pain, unspecified; I10 Essential (primary) hypertension; F17.210 Nicotine dependence, cigarettes, uncomplicated; Z88.8 Allergy status to other drugs, medicaments and biological substances; Z79.899 Other long term (current) drug therapy
CPT/HCPCS: 36415; 71046; 80053; 81001; 81025; 82565; 85025; 87086; 93005; 96361; 96374; 99284; A9270; J2270; J7040

== ENCOUNTER 2018-05-15 11:02 | Emergency (ER) | payer MEDICAID ==
[2018-05-15] MEDS ORDERED: Codeine/guaiFENesin 100-10 MG/5 ML Syrup 5 ML Cup PO ONE (11:27)
--- NOTE | 2018-05-15 11:36 | EDM.PDOC ---
ED HPI GENERAL MEDICAL PROBLEM - General Chief Complaint: Respiratory Problem Stated Complaint: COUGHING,SOB Time Seen by Provider: 05/15/18 11:31 Source of Information: Reports: Patient History Limitations: Reports: No Limitations - History of Present Illness INITIAL COMMENTS - FREE TEXT/NARRATIVE: Presents with cough productive of yellow sputum x 4 days associated with right sided rib pain (with cough). Has h/o COPD, patient continues to smoke cigarettes. Duration: Day(s): (4) Severity: Moderate Associated Symptoms: Reports: No Other Symptoms ribs Pain Score (Numeric/FACES): 8 - Related Data Allergies Allergy/AdvReac Type Severity Reaction Status Date / Time citalopram Allergy Cannot Verified 05/15/18 11:08 Remember diphenhydramine HCl Allergy Hives Verified 05/15/18 11:08 [From Benadryl] gabapentin Allergy Hives Verified 05/15/18 11:08 ANTI-DEPRESSANTS Allergy Hives Uncoded 04/20/18 11:14 FLU SHOT Allergy GBS Uncoded 04/20/18 11:14 Home Meds: Home Meds Albuterol [Proventil HFA] 2 puff PO Q6H PRN 07/20/15 [History] Tiotropium [Spiriva Handihaler] 1 puff INH DAILY 12/20/15 [History] ClonazePAM [KlonoPIN] 1 mg PO BID PRN 04/13/16 [History] Potassium Chloride 10 meq PO DAILY 03/24/17 [History] Pregabalin [Lyrica] 200 mg PO TID 03/24/17 [History] amLODIPine [Norvasc] 5 mg PO DAILY 03/24/17 [History] buPROPion [Wellbutrin] 150 mg PO DAILY 03/24/17 [History] levETIRAcetam [Keppra] 1,000 mg PO BID 03/24/17 [History] Loperamide [Imodium] 2 mg PO Q6H PRN #15 cap 01/15/18 [Rx] DULoxetine [Cymbalta] 30 mg PO DAILY 04/20/18 [History] Fluticasone/Salmeterol [Advair 250-50 Diskus] 1 puff INH DAILY 04/20/18 [History ] Ipratropium/Albuterol Sulfate [Iprat-Albut 0.5-3(2.5) mg/3 ml] 3 ml IH QID PRN 04/20/18 [History] Magnesium Oxide 400 mg PO DAILY #40 tab 04/20/18 [Rx] predniSONE 20 mg PO DAILY #9 tab 04/20/18 [Rx] Codeine/guaiFENesin [guaiFENesin-Codeine Syrup] 5 - 10 ml PO Q6H PRN #240 ml [Rx] Doxycycline Hyclate 100 mg PO BID #14 capsule 05/15/18 [Rx] Past Medical History HEENT History: Reports: Impaired Vision Cardiovascular History: Reports: Hypertension, Other (See Below) Other Cardiovascular History: Low potassium Respiratory History: Reports: COPD, Pneumonia, Recurrent Other Respiratory History: EMPHYSEMA Gastrointestinal History: Reports: Cholelithiasis, GERD, Irritable Bowel Syndrome Genitourinary History: Reports: Other (See Below) Other Genitourinary History: STATES HAD KIDNEY FAILURE TODDLER ET NO REASON GIVEN, RESOLVED ON ITS OWN TRANSIT WORKER 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 CARPAL TUNNEL SYNDROME Neurological History: Reports: Concussion, Migraines, Seizure Other Neuro History: STARTED IN 2013 Psychiatric History: Reports: Anxiety, Depression, Panic Attack - Infectious Disease History Infectious Disease History: Reports: Chicken Pox - Past Surgical History HEENT Surgical History: Reports: Oral Surgery, Tonsillectomy Cardiovascular Surgical History: Reports: Other (See Below) Other Cardiovascular Surgeries/Procedures: HISTORY OF LOOP HEART MONITOR IMPLANT ( WAS REMOVED ALREADY) GI Surgical History: Reports: Cholecystectomy Female Surgical History: Reports: Hysterectomy Social & Family History - Family History Family Medical History: Noncontributory - Tobacco Use Smoking Status *Q: Current Every Day Smoker Tobacco Use Within Last Twelve Months: Cigarettes Years of Tobacco use: 30 Packs/Tins Daily: 1 - Caffeine Use Caffeine Use: Reports: Coffee, Soda - Recreational Drug Use Recreational Drug Use: No - Living Situation & Occupation Living situation: Reports: Single ED ROS GENERAL - Review of Systems Review Of Systems: ROS reveals no pertinent complaints other than HPI. ED EXAM, GENERAL - Physical Exam Exam: See Below Exam Limited By: No Limitations General Appearance: Alert, WD/WN, No Apparent Distress Ears: Normal External Exam Nose: Normal Inspection Head: Atraumatic, Normocephalic Neck: Supple Respiratory/Chest: No Respiratory Distress, Lungs Clear, Wheezing (slight expiratory right upper lung field), Other (right anterior chest wall tenderness) . No: Decreased Breath Sounds Cardiovascular: Regular Rate, Rhythm, No Murmur GI/Abdominal: No Distention Extremities: Normal Inspection, Normal Range of Motion Neurological: Alert, Normal Cognition, No Motor/Sensory Deficits Psychiatric: Normal Affect, Normal Mood Skin Exam: Warm, Dry, Intact Course - Vital Signs Last Recorded V/S: Last Vital Signs Temp 36.7 C 05/15/18 11:05 Pulse 113 H 05/15/18 11:05 Resp 16 05/15/18 11:05 BP 120/105 H 05/15/18 11:05 Pulse Ox 98 05/15/18 11:05 - Orders/Labs/Meds Orders: Active Orders 24 hr Category Date Time Status CXR [Chest 2V] [CR] Stat Exams 05/15/18 11:28 Taken Meds: Medications Discontinued Medications Generic Name Dose Route Start Last Admin Trade Name Freq PRN Reason Stop Dose Admin Guaifenesin/Codeine Phosphate 5 ml 05/15/18 11:27 Robitussin Ac PO 05/15/18 11:28 ONETIME ONE - Radiology Interpretation Free Text/Narrative:: CXR: NAD (ED provider interpretation) Departure - Departure Time of Disposition: 11:49 Disposition: Home, Self-Care 01 Condition: Good Clinical Impression: Bronchitis - Discharge Information *PRESCRIPTION DRUG MONITORING PROGRAM REVIEWED*: Yes *COPY OF PRESCRIPTION DRUG MONITORING REPORT IN PATIENT DILIP: No Prescriptions: Codeine/guaiFENesin [guaiFENesin-Codeine Syrup] 5 - 10 ml PO Q6H PRN #240 ml PRN Reason: Cough Doxycycline Hyclate 100 mg PO BID #14 capsule Instructions: Acute Bronchitis, Adult, [id number], Chronic Obstructive Pulmonary Disease Referrals: Garima Plunkett, STAGE SET UP WORKER [Primary Care Provider] - Forms: ED Department Discharge Additional Instructions: Fill prescriptions for Robitussin AC and Doxycycline and take as directed. Follow up with your doctor in 2-3 days. Return to the ER if symptoms worsen. - My Orders Last 24 Hours: My Active Orders 05/15/18 11:28 CXR [Chest 2V] [CR] Stat - Assessment/Plan Last 24 Hours: My Active Orders 05/15/18 11:28 CXR [Chest 2V] [CR] Stat
[2018-05-15 12:18] VITALS: BP 92/76
--- NOTE | 2018-05-15 13:37 | CR ---
INDICATION: Cough, rib pain - pain below right breast, no history of trauma, history of COPD. CHEST: PA and lateral views of the chest were obtained 05/15/2018 and compared with 04/12/2018 and 01/15/2018. The heart remains normal in size and shape. Mediastinum and bony thorax were unremarkable. Evidence of exogenous obesity is again noted. A definite active infiltrate or effusion was not identified. IMPRESSION: No acute process. MTDD
== END 2018-05-15 12:18 | disposition home or self-care (01) ==
LOC: FB.ED 11:02
DX: J40 Bronchitis, not specified as acute or chronic (principal); I10 Essential (primary) hypertension; F17.210 Nicotine dependence, cigarettes, uncomplicated; Z79.899 Other long term (current) drug therapy; Z88.8 Allergy status to other drugs, medicaments and biological substances
CPT/HCPCS: 71046; 99283; A9270-GY

== ENCOUNTER 2018-06-08 18:54 | Emergency (ER) | payer MEDICAID ==
[2018-06-08] MEDS ORDERED: HYDROmorphone 2 MG/ML SDV IM ONE (19:49)
--- NOTE | 2018-06-08 19:54 | EDM.PDOC ---
ED HPI GENERAL MEDICAL PROBLEM - General Chief Complaint: Back Pain or Injury Stated Complaint: LEFT HIP PAIN,BACK PAIN Time Seen by Provider: 06/08/18 19:50 Source of Information: Reports: Patient, Old Records History Limitations: Reports: No Limitations - History of Present Illness INITIAL COMMENTS - FREE TEXT/NARRATIVE: Andra is a 48-year-old female complaining of low back pain. She does have a history of chronic pain ;however 4 days ago she was in a chair when some kids were playing around and bumped into her, causing her to fall. Since that time she is experiencing significant low back pain radiating to the left. Ibuprofen and Tylenol have not been able to help. She has no fever or chills. Past history includes chronic pain, anxiety and IBS urinary incontinence. Treatments BRUSHER WARP: Reports: NSAIDS Lower back & L hip Pain Score (Numeric/FACES): 9 - Related Data Allergies Allergy/AdvReac Type Severity Reaction Status Date / Time citalopram Allergy Cannot Verified 06/08/18 19:23 Remember diphenhydramine HCl Allergy Hives Verified 06/08/18 19:23 [From Benadryl] gabapentin Allergy Hives Verified 06/08/18 19:23 ANTI-DEPRESSANTS Allergy Hives Uncoded 06/08/18 19:23 FLU SHOT Allergy GBS Uncoded 06/08/18 19:23 Home Meds: Home Meds Albuterol [Proventil HFA] 2 puff PO Q6H PRN 07/20/15 [History] Tiotropium [Spiriva Handihaler] 1 puff INH DAILY 12/20/15 [History] ClonazePAM [KlonoPIN] 1 mg PO BID 04/13/16 [History] Potassium Chloride 10 meq PO DAILY 03/24/17 [History] Pregabalin [Lyrica] 200 mg PO TID 03/24/17 [History] amLODIPine [Norvasc] 5 mg PO DAILY 03/24/17 [History] buPROPion [Wellbutrin] 150 mg PO DAILY 03/24/17 [History] levETIRAcetam [Keppra] 1,000 mg PO BID 03/24/17 [History] DULoxetine [Cymbalta] 30 mg PO DAILY 04/20/18 [History] Ipratropium/Albuterol Sulfate [Iprat-Albut 0.5-3(2.5) mg/3 ml] 3 ml IH QID PRN 04/20/18 [History] Magnesium Oxide 400 mg PO DAILY #40 tab 04/20/18 [Rx] Budesonide/Formoterol Fumarate [Symbicort 160-4.5 Mcg Inhaler] 1 puff DAILY [History] ClonazePAM [KlonoPIN] 2 mg PO BEDTIME 06/08/18 [History] Past Medical History HEENT History: Reports: Impaired Vision Cardiovascular History: Reports: Hypertension, Other (See Below) Other Cardiovascular History: Low potassium Respiratory History: Reports: COPD, Pneumonia, Recurrent Other Respiratory History: EMPHYSEMA Gastrointestinal History: Reports: Cholelithiasis, GERD, Irritable Bowel Syndrome Genitourinary History: Reports: Other (See Below) Other Genitourinary History: STATES HAD KIDNEY FAILURE TODDLER ET NO REASON GIVEN, RESOLVED ON ITS OWN FURNITURE FINISHER HELPER History: Reports: Other FURNITURE FINISHER HELPER History: V PARA V Musculoskeletal History: Reports: Arthritis, Back Pain, Chronic, Fracture, Fibromyalgia, Osteoarthritis, Osteoporosis Other Musculoskeletal History: R foot fx, Fusion on vertebrae 2,3 a defect. CARPAL TUNNEL SYNDROME Neurological History: Reports: Concussion, Migraines, Seizure Other Neuro History: STARTED IN 2013 Psychiatric History: Reports: Anxiety, Depression, Panic Attack, Suicide Attempt Endocrine/Metabolic History: Reports: Obesity/BMI 30+ - Infectious Disease History Infectious Disease History: Reports: Chicken Pox - Past Surgical History HEENT Surgical History: Reports: Oral Surgery Cardiovascular Surgical History: Reports: Other (See Below) Other Cardiovascular Surgeries/Procedures: HISTORY OF LOOP HEART MONITOR IMPLANT ( WAS REMOVED ALREADY) Respiratory Surgical History: Reports: None GI Surgical History: Reports: Cholecystectomy, Colonoscopy, EGD Female Surgical History: Reports: Hysterectomy, Salpingo-Oophorectomy Musculoskeletal Surgical History: Reports: Carpal Tunnel Other Musculoskeletal Surgeries/Procedures:: bilat carpal tunnel surg, Social & Family History - Family History Family Medical History: Noncontributory - Tobacco Use Smoking Status *Q: Current Every Day Smoker Years of Tobacco use: 30 Packs/Tins Daily: 0.5 - Caffeine Use Caffeine Use: Reports: Coffee, Soda, Tea - Recreational Drug Use Recreational Drug Use: No - Living Situation & Occupation Living situation: Reports: Single ED ROS GENERAL - Review of Systems Review Of Systems: ROS reveals no pertinent complaints other than HPI. ED EXAM,LOWER BACK PAIN/INJURY - Physical Exam Exam: See Below Text/Narrative:: She has a stiff posture, with difficutly in getting off her chair. There is no obvious deformity of the lumbar spine. There is exquisite tenderness the lumbar spine and the paraspinal muscles in that area. This also tenderness on the buttock muscles intact. Straight leg raising test negative. Lower extremities exhibit normal strength, and deep tendon reflexes are brisk,and symmetric. Exam Limited By: No Limitations General Appearance: Alert, WD/WN Course - Vital Signs Text/Narrative:: Dilaudid helped some.Willsend her home on T#3 Last Recorded V/S: Last Vital Signs Temp 97.5 F 06/08/18 19:20 Pulse 92 06/08/18 20:11 Resp 20 06/08/18 20:11 BP 112/84 06/08/18 20:11 Pulse Ox 98 06/08/18 20:11 - Orders/Labs/Meds Meds: Medications Discontinued Medications Generic Name Dose Route Start Last Admin Trade Name Shazia PRN Reason Stop Dose Admin Hydromorphone HCl 1 mg 06/08/18 19:49 06/08/18 20:10 Dilaudid IM 06/08/18 19:50 1 mg ONETIME ONE Administration Departure - Departure Time of Disposition: 20:16 Disposition: Home, Self-Care 01 Condition: Good Clinical Impression: Lumbar back sprain Qualifiers: Encounter type: initial encounter Qualified Code(s): S33.5XXA - Sprain of ligaments of lumbar spine, initial encounter - Discharge Information Referrals: Garima Plunkett, NURSES ASSISTANT [Primary Care Provider] - Forms: ED Department Discharge Care Plan Goals: Activella 1 mg of Dilaudid IM. I'll send her home on Tylenol No. 3 to use 1 tablet every 6 hours as needed. I've advised to see her PCP on Sunday. - Problem List & Annotations (1) Lumbar back sprain SNOMED Code(s): 748136837 Code(s): S33.5XXA - SPRAIN OF LIGAMENTS OF LUMBAR SPINE, INITIAL ENCOUNTER Status: Acute Current Visit: Yes Qualifiers: Encounter type: initial encounter Qualified Code(s): S33.5XXA - Sprain of ligaments of lumbar spine, initial encounter - Problem List Review Problem List Initiated/Reviewed/Updated: Yes
[2018-06-08 20:12] VITALS: BP 112/84
[2018-06-08] MEDS ORDERED: Acetaminophen/Codeine 300-30 MG Tab PO ONE (20:22)
== END 2018-06-08 20:40 | disposition home or self-care (01) ==
LOC: FB.ED 18:54
DX: S33.5XXA Sprain of ligaments of lumbar spine, initial encounter (principal); I10 Essential (primary) hypertension; J44.9 Chronic obstructive pulmonary disease, unspecified; E66.9 Obesity, unspecified; F17.210 Nicotine dependence, cigarettes, uncomplicated; Z88.8 Allergy status to other drugs, medicaments and biological substances; Z88.7 Allergy status to serum and vaccine; W07.XXXA Fall from chair, initial encounter
CPT/HCPCS: 96372; 99283; J1170; A9270-GY

== ENCOUNTER 2018-12-29 22:35 | Emergency (ER) | payer MEDICAID ==
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
[2018-12-29] MEDS ORDERED: Ketorolac 60 MG/2 ML SDV IM ONE (22:47)
[2018-12-30 00:15] VITALS: BP 114/84
== END 2018-12-30 00:10 | disposition home or self-care (01) ==
LOC: FB.ED 22:35
DX: S43.402A Unspecified sprain of left shoulder joint, initial encounter (principal); I10 Essential (primary) hypertension; J44.9 Chronic obstructive pulmonary disease, unspecified; F41.9 Anxiety disorder, unspecified; F32.9 Major depressive disorder, single episode, unspecified; Z88.8 Allergy status to other drugs, medicaments and biological substances; Z79.899 Other long term (current) drug therapy; X50.9XXA Other and unspecified overexertion or strenuous movements or postures, initial encounter
CPT/HCPCS: 73030-LT; 73090-LT; 96372; 99283-25; J1885

== ENCOUNTER 2019-02-09 18:40 | Emergency (ER) | payer MEDICAID ==
[2019-02-09] MEDS ORDERED: Acetaminophen/HYDROcodone 325-5 MG Tab PO ONE (18:41)
[2019-02-09 18:53] VITALS: BP 121/81
--- NOTE | 2019-02-09 19:05 | EDM.PDOC ---
ED HPI GENERAL MEDICAL PROBLEM - General Chief Complaint: General Stated Complaint: POSSIBLE UTI Time Seen by Provider: 02/09/19 18:40 Source of Information: Reports: Patient - History of Present Illness INITIAL COMMENTS - FREE TEXT/NARRATIVE: pt with Hx of chronic pain related to fibromyalgia, comes in with c/o flare of her pain over the past 2 days, states it hurts all over her body, denies any other associated sx or concerns, she has been taking her lyrica as scheduled and current flare she states is similar to prior ones. Generalized Pain Score (Numeric/FACES): 9 - Related Data Allergies Allergy/AdvReac Type Severity Reaction Status Date / Time citalopram Allergy Cannot Verified 02/09/19 18:47 Remember diphenhydramine HCl Allergy Hives Verified 02/09/19 18:47 [From Benadryl] gabapentin Allergy Hives Verified 02/09/19 18:47 ANTI-DEPRESSANTS Allergy Hives Uncoded 07/18/18 20:15 FLU SHOT Allergy GBS Uncoded 07/18/18 20:15 Home Meds: Home Meds Albuterol [Proventil HFA] 2 puff PO Q6H PRN 07/20/15 [History] Tiotropium [Spiriva Handihaler] 1 puff INH DAILY 12/20/15 [History] ClonazePAM [KlonoPIN] 1 mg PO BID 04/13/16 [History] Potassium Chloride 10 meq PO DAILY 03/24/17 [History] Pregabalin [Lyrica] 200 mg PO TID 03/24/17 [History] amLODIPine [Norvasc] 5 mg PO DAILY 03/24/17 [History] buPROPion [Wellbutrin] 150 mg PO DAILY 03/24/17 [History] levETIRAcetam [Keppra] 1,000 mg PO BID 03/24/17 [History] DULoxetine [Cymbalta] 30 mg PO DAILY 04/20/18 [History] Ipratropium/Albuterol Sulfate [Iprat-Albut 0.5-3(2.5) mg/3 ml] 3 ml IH QID PRN 04/20/18 [History] Budesonide/Formoterol Fumarate [Symbicort 160-4.5 Mcg Inhaler] 1 puff INH DAILY 06/08/18 [History] ClonazePAM [KlonoPIN] 2 mg PO BEDTIME 06/08/18 [History] Past Medical History HEENT History: Reports: Impaired Vision Cardiovascular History: Reports: Hypertension, Other (See Below) Other Cardiovascular History: Low potassium Respiratory History: Reports: COPD, Pneumonia, Recurrent Other Respiratory History: EMPHYSEMA Gastrointestinal History: Reports: Cholelithiasis, GERD, Irritable Bowel Syndrome Genitourinary History: Reports: Other (See Below) Other Genitourinary History: STATES HAD KIDNEY FAILURE TODDLER ET NO REASON GIVEN, RESOLVED ON ITS OWN 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 CARPAL TUNNEL SYNDROME Neurological History: Reports: Concussion, Migraines, Seizure Other Neuro History: STARTED IN 2013 Psychiatric History: Reports: Anxiety, Depression, Panic Attack, Suicide Attempt Endocrine/Metabolic History: Reports: Obesity/BMI 30+ - Infectious Disease History Infectious Disease History: Reports: Chicken Pox - Past Surgical History HEENT Surgical History: Reports: Oral Surgery Cardiovascular Surgical History: Reports: Other (See Below) Other Cardiovascular Surgeries/Procedures: HISTORY OF LOOP HEART MONITOR IMPLANT ( WAS REMOVED ALREADY) Respiratory Surgical History: Reports: None GI Surgical History: Reports: Cholecystectomy, Colonoscopy, EGD Female Surgical History: Reports: Hysterectomy, Salpingo-Oophorectomy Musculoskeletal Surgical History: Reports: Carpal Tunnel Other Musculoskeletal Surgeries/Procedures:: bilat carpal tunnel surg, Social & Family History - Family History Family Medical History: Noncontributory - Tobacco Use Smoking Status *Q: Current Every Day Smoker Years of Tobacco use: 32 Packs/Tins Daily: 0.5 - Caffeine Use Caffeine Use: Reports: Soda - Recreational Drug Use Recreational Drug Use: No - Living Situation & Occupation Living situation: Reports: Single ED ROS GENERAL - Review of Systems Review Of Systems: See Below Constitutional: Denies: Fever, Chills Respiratory: Reports: No Symptoms Cardiovascular: Reports: No Symptoms GI/Abdominal: Reports: No Symptoms ED EXAM, GENERAL - Physical Exam Exam: See Below Exam Limited By: No Limitations General Appearance: Alert Eye Exam: Bilateral Eye: Normal Inspection Nose: Normal Inspection Throat/Mouth: Normal Inspection, Normal Oropharynx Head: Atraumatic, Normocephalic Neck: Normal Inspection Respiratory/Chest: No Respiratory Distress, Lungs Clear Cardiovascular: Normal Peripheral Pulses, Regular Rate, Rhythm, No JVD GI/Abdominal: Normal Bowel Sounds, Soft, Non-Tender Course - Vital Signs Text/Narrative:: pt has a flare of chronic pain, was given 8 tablets on hydrocodone 5/325 to use 1-2 tab every 6 hrs if needed and was asked to follow with her PCP tomorrow on ongoing mng of chronic pain. Last Recorded V/S: Last Vital Signs Temp 36.3 C 02/09/19 18:45 Pulse 88 02/09/19 18:45 Resp 16 02/09/19 18:45 BP 121/81 02/09/19 18:45 Pulse Ox 98 02/09/19 18:45 Departure - Departure Time of Disposition: 19:00 Disposition: Home, Self-Care 01 Clinical Impression: Fibromyalgia - Discharge Information *PRESCRIPTION DRUG MONITORING PROGRAM REVIEWED*: Not Applicable *COPY OF PRESCRIPTION DRUG MONITORING REPORT IN PATIENT DILIP: Not Applicable Instructions: Chronic Pain, Adult Referrals: Garima Plunkett MAGNETOMETER OPERATOR [Primary Care Provider] - Forms: ED Department Discharge Additional Instructions: Follow up with primary care physician in the AM. May take Hydrocodone every 6 hours as needed for pain management. - Problem List & Annotations (1) Fibromyalgia SNOMED Code(s): 217161674 Code(s): M79.7 - FIBROMYALGIA Status: Acute
== END 2019-02-09 19:05 | disposition home or self-care (01) ==
LOC: FB.ED 18:40
DX: M79.7 Fibromyalgia (principal); I10 Essential (primary) hypertension; F41.9 Anxiety disorder, unspecified; F32.9 Major depressive disorder, single episode, unspecified; E66.9 Obesity, unspecified; F17.210 Nicotine dependence, cigarettes, uncomplicated; M19.90 Unspecified osteoarthritis, unspecified site; Z79.899 Other long term (current) drug therapy; Z90.49 Acquired absence of other specified parts of digestive tract; Z90.710 Acquired absence of both cervix and uterus; Z88.8 Allergy status to other drugs, medicaments and biological substances
CPT/HCPCS: 99283; A9270

== ENCOUNTER 2019-02-12 22:02 | Emergency (ER) | payer MEDICAID ==
[2019-02-12 22:15] VITALS: BP 110/78
[2019-02-12] MEDS ORDERED: Ketorolac 60 MG/2 ML SDV IM ONE (22:19)
--- NOTE | 2019-02-13 03:49 | ER ---
DATE SEEN: 02/12/2019 REASON FOR VISIT: Abdominal pain. HISTORY OF PRESENT ILLNESS: This is a 48-year-old female with abdominal pain for the last 2 to 3 days. She was seen twice, first at the walk-in clinic and then at the clinic. UA was negative and a CT that was done this morning, whose result I have was essentially negative. Pain is left-sided in the lower quadrant with radiation to the pelvic area. REVIEW OF SYSTEMS: Denies any urinary symptoms, diarrhea, constipation, or fever. PAST MEDICAL HISTORY: Anxiety and fibromyalgia. She has also had cholecystectomy and total abdominal hysterectomy. PHYSICAL EXAMINATION: VITAL SIGNS: Her blood pressure and temperature are within reference range and pulse is 88. ABDOMEN: Soft and benign with no tenderness to palpation or masses. LABORATORY DATA: CT showed that she is post hysterectomy and postcholecystectomy, and GI along with the appendix were normal. IMPRESSION: Abdominal pain that is chronic. PLAN: Ketorolac 60 mg IM. I have advised her to see PCP to discuss colonoscopy, possibly to try and find the cause of her pain. /[id number] ASHLEY/JOE
== END 2019-02-12 22:35 | disposition home or self-care (01) ==
LOC: FB.ED 22:02
DX: R10.9 Unspecified abdominal pain (principal)
CPT/HCPCS: 96372; 99283; J1885

== ENCOUNTER 2019-02-18 14:22 | Emergency (ER) | payer MEDICAID ==
[2019-02-18 15:15] VITALS: BP 104/78
--- NOTE | 2019-02-18 15:47 | EDM.PDOC ---
ED HPI GENERAL MEDICAL PROBLEM - General Chief Complaint: Lower Extremity Injury/Pain Stated Complaint: R KNEE PAIN Time Seen by Provider: 02/18/19 15:41 Source of Information: Reports: Patient History Limitations: Reports: No Limitations - History of Present Illness INITIAL COMMENTS - FREE TEXT/NARRATIVE: Presents with chronic right knee pain due to osteoarthritis, worse after cortisone injection 12/2018. Pain is not controlled with Ibuprofen or Tylenol. Denies injury. Location: Reports: Lower Extremity, Right Quality: Reports: Dull Severity: Moderate Treatments HEAD INSPECTOR AND CENTER MARKER: Reports: Acetaminophen, NSAIDS R knee Pain Score (Numeric/FACES): 8 - Related Data Allergies Allergy/AdvReac Type Severity Reaction Status Date / Time citalopram Allergy Cannot Verified 02/18/19 15:07 Remember diphenhydramine HCl Allergy Hives Verified 02/18/19 15:07 [From Benadryl] gabapentin Allergy Hives Verified 02/18/19 15:07 ANTI-DEPRESSANTS Allergy Hives Uncoded 02/18/19 15:07 FLU SHOT Allergy GBS Uncoded 02/18/19 15:07 Home Meds: Home Meds Albuterol [Proventil HFA] 2 puff PO Q6H PRN 07/20/15 [History] Tiotropium [Spiriva Handihaler] 1 puff INH DAILY 12/20/15 [History] ClonazePAM [KlonoPIN] 1 mg PO BID 04/13/16 [History] Potassium Chloride 10 meq PO DAILY 03/24/17 [History] Pregabalin [Lyrica] 200 mg PO TID 03/24/17 [History] amLODIPine [Norvasc] 5 mg PO DAILY 03/24/17 [History] buPROPion [Wellbutrin] 300 mg PO DAILY 03/24/17 [History] levETIRAcetam [Keppra] 1,000 mg PO BID 03/24/17 [History] DULoxetine [Cymbalta] 30 mg PO DAILY 04/20/18 [History] Ipratropium/Albuterol Sulfate [Iprat-Albut 0.5-3(2.5) mg/3 ml] 3 ml IH QID PRN 04/20/18 [History] Budesonide/Formoterol Fumarate [Symbicort 160-4.5 Mcg Inhaler] 1 puff INH DAILY 06/08/18 [History] ClonazePAM [KlonoPIN] 2 mg PO BEDTIME 06/08/18 [History] Acetaminophen/HYDROcodone [[place] 325-5 MG] 1 - 2 tab PO Q8H PRN #8 tab 02/18/19 [Rx] Past Medical History HEENT History: Reports: Impaired Vision Cardiovascular History: Reports: Hypertension, Other (See Below) Other Cardiovascular History: Low potassium Respiratory History: Reports: COPD, Pneumonia, Recurrent Other Respiratory History: EMPHYSEMA, uses O2 @ 2L/NC @ hs. 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 CARPAL TUNNEL SYNDROME Neurological History: Reports: Concussion, Migraines, Seizure Other Neuro History: STARTED IN 2013 Psychiatric History: Reports: Anxiety, Depression, Panic Attack, Suicide Attempt Endocrine/Metabolic History: Reports: Obesity/BMI 30+ - Infectious Disease History Infectious Disease History: Reports: Chicken Pox - Past Surgical History HEENT Surgical History: Reports: Oral Surgery Cardiovascular Surgical History: Reports: Other (See Below) Other Cardiovascular Surgeries/Procedures: HISTORY OF LOOP HEART MONITOR IMPLANT ( WAS REMOVED ALREADY) Respiratory Surgical History: Reports: None GI Surgical History: Reports: Cholecystectomy, Colonoscopy, EGD Female Surgical History: Reports: Hysterectomy, Salpingo-Oophorectomy Musculoskeletal Surgical History: Reports: Carpal Tunnel Other Musculoskeletal Surgeries/Procedures:: bilat carpal tunnel surg, Social & Family History - Family History Family Medical History: Noncontributory - Tobacco Use Smoking Status *Q: Current Every Day Smoker Years of Tobacco use: 30 Packs/Tins Daily: 0.5 - Caffeine Use Caffeine Use: Reports: Soda - Recreational Drug Use Recreational Drug Use: No - Living Situation & Occupation Living situation: Reports: Single Review of Systems - Review of Systems Review Of Systems: ROS reveals no pertinent complaints other than HPI. ED EXAM, GENERAL - Physical Exam Exam: See Below Exam Limited By: No Limitations General Appearance: Alert, WD/WN, No Apparent Distress Throat/Mouth: No Airway Compromise Head: Atraumatic, Normocephalic Neck: Full Range of Motion Respiratory/Chest: No Respiratory Distress Peripheral Pulses: 2+: Dorsalis Pedis (R) Extremities: Other (generalized right knee tenderness with mild effusion, knee is stable) Neurological: Alert, Normal Cognition, No Motor/Sensory Deficits Psychiatric: Normal Affect, Normal Mood Skin Exam: Warm, Dry, Intact Course - Vital Signs Last Recorded V/S: Last Vital Signs Temp 36.6 C 02/18/19 15:00 Pulse 86 02/18/19 15:00 Resp 20 02/18/19 15:00 BP 104/78 02/18/19 15:00 Pulse Ox 99 02/18/19 15:00 Departure - Departure Time of Disposition: 15:47 Disposition: Home, Self-Care 01 Condition: Good Clinical Impression: Knee pain, chronic Qualifiers: Laterality: right Qualified Code(s): M25.561 - Pain in right knee - Discharge Information *PRESCRIPTION DRUG MONITORING PROGRAM REVIEWED*: Yes *COPY OF PRESCRIPTION DRUG MONITORING REPORT IN PATIENT DILIP: No Prescriptions: Acetaminophen/HYDROcodone [[place] 325-5 MG] 1 - 2 tab PO Q8H PRN #8 tab PRN Reason: Pain Instructions: Knee Pain, Adult Referrals: Garima Plunkett ENERGY SYSTEMS ENGINEER [Primary Care Provider] - Forms: ED Department Discharge Additional Instructions: Fill prescription for [place] and take as directed. Elevate the leg, rest. Follow up with Orthopedic Surgery in 2-3 days.
== END 2019-02-18 16:04 | disposition home or self-care (01) ==
LOC: FB.ED 14:22
DX: G89.29 Other chronic pain (principal); M25.561 Pain in right knee; M19.90 Unspecified osteoarthritis, unspecified site; F17.210 Nicotine dependence, cigarettes, uncomplicated; I10 Essential (primary) hypertension; J44.9 Chronic obstructive pulmonary disease, unspecified; F41.9 Anxiety disorder, unspecified; F32.9 Major depressive disorder, single episode, unspecified; Z79.899 Other long term (current) drug therapy; Z88.8 Allergy status to other drugs, medicaments and biological substances; Z88.7 Allergy status to serum and vaccine
CPT/HCPCS: 99283

== ENCOUNTER 2019-02-25 03:10 | Emergency (ER) | payer MEDICAID ==
[2019-02-25] MEDS ORDERED: Acetaminophen/HYDROcodone 325-5 MG Tab PO ONE ×2 (03:11→03:34)
[2019-02-25 03:24] VITALS: BP 100/71
--- NOTE | 2019-02-25 03:39 | EDM.PDOC ---
ED HPI GENERAL MEDICAL PROBLEM - General Chief Complaint: Lower Extremity Injury/Pain Stated Complaint: RT KNEE PAIN Time Seen by Provider: 02/25/19 03:10 Source of Information: Reports: Patient History Limitations: Reports: No Limitations - History of Present Illness INITIAL COMMENTS - FREE TEXT/NARRATIVE: 48 y.o.w.f came to the ED because of pain at her left knee. Pt's right knee is edematous for a few days and she has seen her PMD, who was scheduling an MRI today of her right knee. Pt denied a new trauma. She has limited ROM of her right knee for a few days which is worse tonight. no erythema. No warmness to touch. No N/V/D no otyer acute med issues. BP 100/71 Pulse ox 97% on RA RR 17 Pulse 97 Temp 36.7 Onset Date: 02/24/19 Onset Time: 08:00 Duration: Hour(s): Location: Reports: Lower Extremity, Right (knee) Quality: Reports: Dull, Same as Previous Episode Severity: Mild Improves with: Reports: Rest Worsens with: Reports: Movement Context: Reports: Other Associated Symptoms: Reports: No Other Symptoms right knee Pain Score (Numeric/FACES): 9 - Related Data Allergies Allergy/AdvReac Type Severity Reaction Status Date / Time citalopram Allergy Cannot Verified 02/25/19 03:19 Remember diphenhydramine HCl Allergy Hives Verified 02/25/19 03:19 [From Benadryl] gabapentin Allergy Hives Verified 02/25/19 03:19 ANTI-DEPRESSANTS Allergy Hives Uncoded 02/18/19 15:07 FLU SHOT Allergy GBS Uncoded 02/18/19 15:07 Home Meds: Home Meds Albuterol [Proventil HFA] 2 puff PO Q6H PRN 07/20/15 [History] Tiotropium [Spiriva Handihaler] 1 puff INH DAILY 12/20/15 [History] ClonazePAM [KlonoPIN] 1 mg PO BID 04/13/16 [History] Potassium Chloride 10 meq PO DAILY 03/24/17 [History] Pregabalin [Lyrica] 200 mg PO TID 03/24/17 [History] amLODIPine [Norvasc] 5 mg PO DAILY 03/24/17 [History] buPROPion [Wellbutrin] 300 mg PO DAILY 03/24/17 [History] levETIRAcetam [Keppra] 1,000 mg PO BID 03/24/17 [History] DULoxetine [Cymbalta] 30 mg PO DAILY 04/20/18 [History] Ipratropium/Albuterol Sulfate [Iprat-Albut 0.5-3(2.5) mg/3 ml] 3 ml IH QID PRN 04/20/18 [History] Budesonide/Formoterol Fumarate [Symbicort 160-4.5 Mcg Inhaler] 1 puff INH DAILY 06/08/18 [History] ClonazePAM [KlonoPIN] 2 mg PO BEDTIME 06/08/18 [History] Acetaminophen/HYDROcodone [[place] 325-5 MG] 1 - 2 tab PO Q8H PRN #8 tab 02/18/19 [Rx] Past Medical History HEENT History: Reports: Impaired Vision Cardiovascular History: Reports: Hypertension, Other (See Below) Other Cardiovascular History: Low potassium Respiratory History: Reports: COPD, Pneumonia, Recurrent Other Respiratory History: EMPHYSEMA, uses O2 @ 2L/NC @ hs. Gastrointestinal History: Reports: Cholelithiasis, GERD, Irritable Bowel Syndrome Genitourinary History: Reports: Other (See Below) Other Genitourinary History: STATES HAD KIDNEY FAILURE TODDLER ET NO REASON GIVEN, RESOLVED ON ITS OWN MILL AND COAL TRANSPORT OPERATOR History: Reports: Other MILL AND COAL TRANSPORT OPERATOR History: V PARA V Musculoskeletal History: Reports: Arthritis, Back Pain, Chronic, Fracture, Fibromyalgia, Osteoarthritis, Osteoporosis Other Musculoskeletal History: R foot fx, Fusion on vertebrae 2,3 a defect. CARPAL TUNNEL SYNDROME Neurological History: Reports: Concussion, Migraines, Seizure Other Neuro History: STARTED IN 2013 Psychiatric History: Reports: Anxiety, Depression, Panic Attack, Suicide Attempt Endocrine/Metabolic History: Reports: Obesity/BMI 30+ - Infectious Disease History Infectious Disease History: Reports: Chicken Pox - Past Surgical History HEENT Surgical History: Reports: Oral Surgery Cardiovascular Surgical History: Reports: Other (See Below) Other Cardiovascular Surgeries/Procedures: HISTORY OF LOOP HEART MONITOR IMPLANT ( WAS REMOVED ALREADY) Respiratory Surgical History: Reports: None GI Surgical History: Reports: Cholecystectomy, Colonoscopy, EGD Female Surgical History: Reports: Hysterectomy, Salpingo-Oophorectomy Musculoskeletal Surgical History: Reports: Carpal Tunnel Other Musculoskeletal Surgeries/Procedures:: bilat carpal tunnel surg, Social & Family History - Family History Family Medical History: Noncontributory - Tobacco Use Smoking Status *Q: Current Every Day Smoker Years of Tobacco use: 30 Packs/Tins Daily: 0.5 - Caffeine Use Caffeine Use: Reports: Soda - Living Situation & Occupation Living situation: Reports: Single Review of Systems - Review of Systems Review Of Systems: See Below Constitutional: Reports: No Symptoms Eyes: Reports: No Symptoms Ears: Reports: No Symptoms Nose: Reports: No Symptoms Mouth/Throat: Reports: No Symptoms Respiratory: Reports: No Symptoms Cardiovascular: Reports: No Symptoms GI/Abdominal: Reports: No Symptoms Genitourinary: Reports: No Symptoms Musculoskeletal: Reports: Joint Swelling Skin: Reports: No Symptoms Neurological: Reports: No Symptoms Psychiatric: Reports: No Symptoms ED EXAM, GENERAL - Physical Exam Exam: See Below Exam Limited By: No Limitations General Appearance: Alert, WD/WN, Mild Distress Eye Exam: Bilateral Eye: Normal Inspection Ears: Normal External Exam Ear Exam: Bilateral Ear: Auricle Normal Nose: Normal Inspection, Normal Mucosa Throat/Mouth: Normal Inspection, Normal Lips, Normal Voice, No Airway Compromise Head: Atraumatic, Normocephalic Neck: Normal Inspection, Supple Respiratory/Chest: No Respiratory Distress, Lungs Clear Cardiovascular: Normal Peripheral Pulses, Regular Rate, Rhythm GI/Abdominal: Normal Bowel Sounds (Female) Exam: Deferred Rectal (Female) Exam: Deferred Back Exam: Normal Inspection Extremities: Normal Inspection, Limited Range of Motion (right knee) Neurological: Alert, Oriented Psychiatric: Normal Affect Skin Exam: Warm, Dry, Intact, Normal Color Lymphatic: No Adenopathy Course - Vital Signs Text/Narrative:: 48 y.o.w.f came to the ED because of pain at her left knee. Pt's right knee is edematous for a few days and she has seen her PMD, who was scheduling an MRI today of her right knee. Pt denied a new trauma. She has limited ROM of her right knee for a few days which is worse tonight. no erythema. No warmness to touch. No N/V/D no otyer acute med issues. BP 100/71 Pulse ox 97% on RA RR 17 Pulse 97 Temp 36.7 PE: WNWD w f with chronic right knee pain, now new trauma. Scheduled for an MRI Impression: Right knee swelling Tx: Ice, norco, (Motrin doid not help her pain) Reexam: Improved Plan: D/C with instructions Last Recorded V/S: Last Vital Signs Temp 36.5 C 02/25/19 03:10 Pulse 83 02/25/19 03:10 Resp 17 02/25/19 03:10 BP 100/71 02/25/19 03:10 Pulse Ox 97 02/25/19 03:10 - Orders/Labs/Meds Meds: Medications Discontinued Medications Generic Name Dose Route Start Last Admin Trade Name Shazia PRN Reason Stop Dose Admin Hydrocodone Bitart/Acetaminophen 4 tab 02/25/19 03:34 02/25/19 03:35 [place] 325-5 Mg PO 02/25/19 03:35 Not Given ONETIME ONE Departure - Departure Time of Disposition: 03:37 Disposition: Home, Self-Care 01 Condition: Good Clinical Impression: Knee effusion, right - Discharge Information Instructions: Knee Pain, Adult Referrals: Garima Plunkett, MILL [employer] [Primary Care Provider] - Forms: ED Department Discharge Additional Instructions: Ice, rest and elevation, Please take th pain meds as recommended- you have 4 tabs of norco. please take one tab every 6hours as needed for pain, Please f/u with your PMD in 2 days as scheduled, come back if your symptoms get worse acutely
== END 2019-02-25 03:42 | disposition home or self-care (01) ==
LOC: FB.ED 03:10
DX: M25.461 Effusion, right knee (principal); J44.9 Chronic obstructive pulmonary disease, unspecified; F41.9 Anxiety disorder, unspecified; F32.9 Major depressive disorder, single episode, unspecified; F17.210 Nicotine dependence, cigarettes, uncomplicated; Z88.1 Allergy status to other antibiotic agents; Z88.8 Allergy status to other drugs, medicaments and biological substances; Z79.899 Other long term (current) drug therapy; Z99.81 Dependence on supplemental oxygen
CPT/HCPCS: 99283; A9270

== ENCOUNTER 2019-03-01 19:15 | Emergency (ER) | payer MEDICAID ==
--- NOTE | 2019-03-01 19:30 | EDM.PDOC ---
ED HPI GENERAL MEDICAL PROBLEM - General Chief Complaint: Lower Extremity Injury/Pain Stated Complaint: RT KNEE PAIN Time Seen by Provider: 03/01/19 19:47 Source of Information: Reports: Patient History Limitations: Reports: No Limitations - History of Present Illness INITIAL COMMENTS - FREE TEXT/NARRATIVE: patient presents with concern for right knee pain, has been going on about 3 months, seeing orthopaedics, had an MRI yesterday. No new injury, falls, or other difficulty today. Very distressed about her pain. Following with Dr. Guerra. No fever, chills, sweats. Right knee Pain Score (Numeric/FACES): 9 - Related Data Allergies Allergy/AdvReac Type Severity Reaction Status Date / Time citalopram Allergy Cannot Verified 03/01/19 19:16 Remember diphenhydramine HCl Allergy Hives Verified 03/01/19 19:16 [From Benadryl] gabapentin Allergy Hives Verified 03/01/19 19:16 ANTI-DEPRESSANTS Allergy Hives Uncoded 02/18/19 15:07 FLU SHOT Allergy GBS Uncoded 02/18/19 15:07 Home Meds: Home Meds Albuterol [Proventil HFA] 2 puff PO Q6H PRN 07/20/15 [History] Tiotropium [Spiriva Handihaler] 1 puff INH DAILY 12/20/15 [History] ClonazePAM [KlonoPIN] 1 mg PO BID 04/13/16 [History] Potassium Chloride 10 meq PO DAILY 03/24/17 [History] amLODIPine [Norvasc] 5 mg PO DAILY 03/24/17 [History] buPROPion [Wellbutrin] 300 mg PO DAILY 03/24/17 [History] levETIRAcetam [Keppra] 1,000 mg PO BID 03/24/17 [History] DULoxetine [Cymbalta] 30 mg PO DAILY 04/20/18 [History] Ipratropium/Albuterol Sulfate [Iprat-Albut 0.5-3(2.5) mg/3 ml] 3 ml IH QID PRN 04/20/18 [History] Budesonide/Formoterol Fumarate [Symbicort 160-4.5 Mcg Inhaler] 1 puff INH DAILY 06/08/18 [History] ClonazePAM [KlonoPIN] 2 mg PO BEDTIME 06/08/18 [History] Past Medical History HEENT History: Reports: Impaired Vision Cardiovascular History: Reports: Hypertension, Other (See Below) Other Cardiovascular History: Low potassium Respiratory History: Reports: COPD, Pneumonia, Recurrent Other Respiratory History: EMPHYSEMA, uses O2 @ 2L/NC @ hs. Gastrointestinal History: Reports: Cholelithiasis, GERD, Irritable Bowel Syndrome Genitourinary History: Reports: Other (See Below) Other Genitourinary History: STATES HAD KIDNEY FAILURE TODDLER ET NO REASON GIVEN, RESOLVED ON ITS OWN FISCAL ASSISTANT History: Reports: Other FISCAL ASSISTANT History: V PARA V Musculoskeletal History: Reports: Arthritis, Back Pain, Chronic, Fracture, Fibromyalgia, Osteoarthritis, Osteoporosis Other Musculoskeletal History: R foot fx, Fusion on vertebrae 2,3 a defect. CARPAL TUNNEL SYNDROME Neurological History: Reports: Concussion, Migraines, Seizure Other Neuro History: STARTED IN 2013 Psychiatric History: Reports: Anxiety, Depression, Panic Attack, Suicide Attempt Endocrine/Metabolic History: Reports: Obesity/BMI 30+ - Infectious Disease History Infectious Disease History: Reports: Chicken Pox - Past Surgical History HEENT Surgical History: Reports: Oral Surgery Cardiovascular Surgical History: Reports: Other (See Below) Other Cardiovascular Surgeries/Procedures: HISTORY OF LOOP HEART MONITOR IMPLANT ( WAS REMOVED ALREADY) Respiratory Surgical History: Reports: None GI Surgical History: Reports: Cholecystectomy, Colonoscopy, EGD Female Surgical History: Reports: Hysterectomy, Salpingo-Oophorectomy Musculoskeletal Surgical History: Reports: Carpal Tunnel Other Musculoskeletal Surgeries/Procedures:: bilat carpal tunnel surg, Social & Family History - Family History Family Medical History: Noncontributory - Caffeine Use Caffeine Use: Reports: Soda - Living Situation & Occupation Living situation: Reports: Single ED ROS GENERAL - Review of Systems Review Of Systems: ROS reveals no pertinent complaints other than HPI. ED EXAM, GENERAL - Physical Exam Exam: See Below Free Text/Narrative:: General: alert, tearful. Knee: slight effusion noted, no erythema, able to flex, extend, and ambulate with a cane. Course - Vital Signs Text/Narrative:: Full exam deferred - patient has already undergone complete workup and following with ortho. No new problems today. Narcotics not indicated for chronic pain unless provided by primary caretakers and with contract. Did discuss continuing with Tylenol, ibuprofen, ice, utilizing richi wrap. Also reviewed use of cane and educated provided for how to ambulate, patient greatly appreciated. Discharge to home. Last Recorded V/S: Last Vital Signs Temp 36.4 C 03/01/19 19:15 Pulse 98 03/01/19 19:19 Resp 20 03/01/19 19:15 BP 111/84 03/01/19 19:19 Pulse Ox 98 03/01/19 19:19 Departure - Departure Time of Disposition: 20:03 Disposition: Home, Self-Care 01 Condition: Fair Clinical Impression: Knee effusion, right Knee pain, chronic Qualifiers: Laterality: right Qualified Code(s): M25.561 - Pain in right knee - Discharge Information *PRESCRIPTION DRUG MONITORING PROGRAM REVIEWED*: Yes *COPY OF PRESCRIPTION DRUG MONITORING REPORT IN PATIENT DILIP: No Instructions: Knee Pain, Adult Referrals: Garima Plunkett AUTO RENTAL CLERK [Primary Care Provider] - Forms: ED Department Discharge Additional Instructions: use cane on side opposite to injury. When you step, put down the cane and your injured leg at the same time. This will help to take some of the weight off your knee. Dr. Guerra's office should give you a call with the MRI results next week continue with ibuprofen 600mg three times per day and tylenol per bottle ice frequently can richi wrap -- this should help with swelling elevate as able during the day. moving around some will help to keep muscles strong so that recovery from surgery will be much easier, so it is important to find a balance of elevating and movement that doesn't hurt too much but maintains strength. take very good care
[2019-03-01 19:46] VITALS: BP 111/84
== END 2019-03-01 20:10 | disposition home or self-care (01) ==
LOC: FB.ED 19:15
DX: M25.461 Effusion, right knee (principal); I10 Essential (primary) hypertension; J44.9 Chronic obstructive pulmonary disease, unspecified; M19.90 Unspecified osteoarthritis, unspecified site; F41.9 Anxiety disorder, unspecified; F32.9 Major depressive disorder, single episode, unspecified; Z79.899 Other long term (current) drug therapy; Z98.890 Other specified postprocedural states; E66.9 Obesity, unspecified; Z90.49 Acquired absence of other specified parts of digestive tract; Z90.710 Acquired absence of both cervix and uterus; Z88.8 Allergy status to other drugs, medicaments and biological substances
CPT/HCPCS: 99283

== ENCOUNTER 2019-03-07 12:00 | Emergency (ER) | payer MEDICAID ==
--- NOTE | 2019-03-07 12:17 | EDM.PDOC ---
ED HPI GENERAL MEDICAL PROBLEM - General Stated Complaint: FALL IN PARKING LOT Time Seen by Provider: 03/07/19 12:00 Source of Information: Reports: Patient, EMS History Limitations: Reports: Physical Impairment - History of Present Illness INITIAL COMMENTS - FREE TEXT/NARRATIVE: 48 y.o.w.eren came by EMS after she fell at the [place]ushant lot in front of the clinic here [facility]. EMS was called and brought the patient to the ed. On arrival, pt stated, she has severe pain at her left hip and lat left knee. She was supposed to see her doctor at the urgent care clinic today for her right knee pain, S/P MRI to f/u up. No SOB, no CP, no other acute medical issue. BP 117/77 RR 18 Pulse ox 96% on RR pulse 88 Temp 37.1 Onset Date: 03/07/19 Onset Time: 11:00 Duration: Getting Worse Location: Reports: Lower Extremity, Left Quality: Reports: Ache, Burning, Dull Severity: Moderate Improves with: Reports: Rest Worsens with: Reports: Movement Context: Reports: Trauma Associated Symptoms: Reports: No Other Symptoms RT ARM Pain Score (Numeric/FACES): 4 LEFT KNEE, LEFT HIP AND LOWER BACK Pain Score (Numeric/FACES): 10 - Related Data Allergies Allergy/AdvReac Type Severity Reaction Status Date / Time citalopram Allergy Cannot Verified 03/07/19 12:06 Remember diphenhydramine HCl Allergy Hives Verified 03/07/19 12:06 [From Benadryl] gabapentin Allergy Hives Verified 03/07/19 12:06 ANTI-DEPRESSANTS Allergy Hives Uncoded 03/07/19 12:06 FLU SHOT Allergy GBS Uncoded 03/07/19 12:06 Home Meds: Home Meds Albuterol [Proventil HFA] 2 puff PO Q6H PRN 07/20/15 [History] Tiotropium [Spiriva Handihaler] 1 puff INH DAILY 12/20/15 [History] ClonazePAM [KlonoPIN] 1 mg PO BID 04/13/16 [History] Potassium Chloride 10 meq PO DAILY 03/24/17 [History] amLODIPine [Norvasc] 5 mg PO DAILY 03/24/17 [History] buPROPion [Wellbutrin] 300 mg PO DAILY 03/24/17 [History] levETIRAcetam [Keppra] 1,000 mg PO BID 03/24/17 [History] DULoxetine [Cymbalta] 30 mg PO DAILY 04/20/18 [History] Ipratropium/Albuterol Sulfate [Iprat-Albut 0.5-3(2.5) mg/3 ml] 3 ml IH QID PRN 04/20/18 [History] Budesonide/Formoterol Fumarate [Symbicort 160-4.5 Mcg Inhaler] 1 puff INH DAILY 06/08/18 [History] ClonazePAM [KlonoPIN] 2 mg PO BEDTIME 06/08/18 [History] Past Medical History HEENT History: Reports: Impaired Vision Cardiovascular History: Reports: Hypertension, Other (See Below) Other Cardiovascular History: Low potassium Respiratory History: Reports: COPD, Pneumonia, Recurrent Other Respiratory History: EMPHYSEMA, uses O2 @ 2L/NC @ hs. Gastrointestinal History: Reports: Cholelithiasis, GERD, Irritable Bowel Syndrome Genitourinary History: Reports: Other (See Below) Other Genitourinary History: STATES HAD KIDNEY FAILURE TODDLER ET NO REASON GIVEN, RESOLVED ON ITS OWN SENIOR CYTOTECHNOLOGIST History: Reports: Other SENIOR CYTOTECHNOLOGIST History: V PARA V Musculoskeletal History: Reports: Arthritis, Back Pain, Chronic, Fracture, Fibromyalgia, Osteoarthritis, Osteoporosis Other Musculoskeletal History: R foot fx, Fusion on vertebrae 2,3 a defect. CARPAL TUNNEL SYNDROME Neurological History: Reports: Concussion, Migraines, Seizure Other Neuro History: STARTED IN 2013 Psychiatric History: Reports: Anxiety, Depression, Panic Attack, Suicide Attempt Endocrine/Metabolic History: Reports: Obesity/BMI 30+ - Infectious Disease History Infectious Disease History: Reports: Chicken Pox - Past Surgical History HEENT Surgical History: Reports: Oral Surgery Cardiovascular Surgical History: Reports: Other (See Below) Other Cardiovascular Surgeries/Procedures: HISTORY OF LOOP HEART MONITOR IMPLANT ( WAS REMOVED ALREADY) Respiratory Surgical History: Reports: None GI Surgical History: Reports: Cholecystectomy, Colonoscopy, EGD Female Surgical History: Reports: Hysterectomy, Salpingo-Oophorectomy Musculoskeletal Surgical History: Reports: Carpal Tunnel Other Musculoskeletal Surgeries/Procedures:: bilat carpal tunnel surg, Social & Family History - Family History Family Medical History: Noncontributory - Caffeine Use Caffeine Use: Reports: Soda - Living Situation & Occupation Living situation: Reports: Single Review of Systems - Review of Systems Review Of Systems: See Below Constitutional: Reports: No Symptoms Eyes: Reports: No Symptoms Ears: Reports: No Symptoms Nose: Reports: No Symptoms Mouth/Throat: Reports: No Symptoms Respiratory: Reports: No Symptoms Cardiovascular: Reports: No Symptoms GI/Abdominal: Reports: No Symptoms Genitourinary: Reports: No Symptoms Musculoskeletal: Reports: Leg Pain, Muscle Pain Skin: Reports: No Symptoms Neurological: Reports: No Symptoms Psychiatric: Reports: No Symptoms ED EXAM, GENERAL - Physical Exam Exam: See Below Exam Limited By: No Limitations General Appearance: Alert, WD/WN, Moderate Distress Eye Exam: Bilateral Eye: Normal Inspection Ears: Normal External Exam Ear Exam: Bilateral Ear: Auricle Normal Nose: Normal Inspection Throat/Mouth: Normal Inspection Head: Atraumatic, Normocephalic Neck: Normal Inspection Respiratory/Chest: No Respiratory Distress, Lungs Clear, Normal Breath Sounds Cardiovascular: Normal Peripheral Pulses, Regular Rate, Rhythm GI/Abdominal: Normal Bowel Sounds (Female) Exam: Deferred Rectal (Female) Exam: Deferred Back Exam: Normal Inspection, Full Range of Motion Extremities: Limited Range of Motion (left hip due to pain) Neurological: Alert, Oriented, CN II-XII Intact, Normal Cognition, Abnormal Gait (left hip pain) Psychiatric: Normal Affect, Normal Mood Skin Exam: Warm Lymphatic: No Adenopathy Course - Vital Signs Text/Narrative:: 48 y.o.w.f came by EMS after she fell at the [place] lot in front of the clinic here [facility]. EMS was called and brought the patient to the ed. On arrival, pt stated, she has severe pain at her left hip and lat left knee. She was supposed to see her doctor at the urgent care clinic today for her right knee pain, S/P MRI to f/u up. No SOB, no CP, no other acute medical issue. BP 117/77 RR 18 Pulse ox 96% on RR pulse 88 Temp 37.1 PE: WNWD W F with left hip/knee pain after a fall Imaging: X ray left knee, left hip and pelvis were all NAD as per RAD Impression: S/P Fall at the clinic parking lot, left hip/knee sprain Tx: Toradol, ICE Reexam: Improved Plan: D/C with instructions Last Recorded V/S: Last Vital Signs Temp 36.7 C 03/07/19 13:26 Pulse 83 03/07/19 13:26 Resp 19 03/07/19 13:26 BP 114/78 03/07/19 13:26 Pulse Ox 97 03/07/19 13:26 - Orders/Labs/Meds Orders: Active Orders 24 hr Category Date Time Status Ice Therapy [OM.PC] Routine Oth 03/07/19 12:48 Ordered Meds: Medications Discontinued Medications Generic Name Dose Route Start Last Admin Trade Name Shazia PRN Reason Stop Dose Admin Ketorolac Tromethamine 60 mg 03/07/19 12:48 03/07/19 12:52 Toradol IM 03/07/19 12:49 60 mg ONETIME ONE Administration Departure - Departure Time of Disposition: 12:52 Disposition: Home, Self-Care 01 Condition: Good Clinical Impression: Left leg injury Qualifiers: Encounter type: initial encounter Qualified Code(s): S89.92XA - Unspecified injury of left lower leg, initial encounter - Discharge Information Instructions: Knee Pain, Adult, Chronic Back Pain, [id number] Referrals: Garima Plunkett MOTORCYCLE MECHANIC APPRENTICE [Primary Care Provider] - Forms: ED Department Discharge Additional Instructions: ICE, Rest and elevation left leg, ICE and Mitrin for pain, please make an appointment t with Dr Guerra or next week. Come back if your symptoms get worse acutely - My Orders Last 24 Hours: My Active Orders 03/07/19 12:48 Ice Therapy [OM.PC] Routine - Assessment/Plan Last 24 Hours: My Active Orders 03/07/19 12:48 Ice Therapy [OM.PC] Routine
[2019-03-07] MEDS ORDERED: Ketorolac 60 MG/2 ML SDV IM ONE (12:48)
[2019-03-07 13:27] VITALS: BP 114/78
--- NOTE | 2019-03-07 14:51 | CR ---
INDICATION: Fell in parking lot. LEFT HIP WITH PELVIS: Frontal view of the pelvis with frontal and lateral views of the left hip revealed the hip joints and sacroiliac joints to appear intact - no fracture or dislocation is identified. Sclerotic changes in the intertrochanteric areas bilaterally are likely due to minimal bone infarct. A mass in the pelvis likely represents distended urinary bladder. Overall bone density appeared to be normal. IMPRESSION: No acute fracture or dislocation. MTDD
--- NOTE | 2019-03-07 14:52 | CR ---
INDICATION: Fell in parking lot. LEFT KNEE: Frontal and lateral views of the left knee revealed no evidence of fracture, dislocation, or other significant bone or joint abnormality. MAKENNA
== END 2019-03-07 13:35 | disposition home or self-care (01) ==
LOC: FB.ED 12:00
DX: S89.92XA Unspecified injury of left lower leg, initial encounter (principal); F41.9 Anxiety disorder, unspecified; F32.9 Major depressive disorder, single episode, unspecified; W18.39XA Other fall on same level, initial encounter; Y92.481 Parking lot as the place of occurrence of the external cause; Z79.899 Other long term (current) drug therapy; Z88.8 Allergy status to other drugs, medicaments and biological substances; Z88.7 Allergy status to serum and vaccine; Z99.81 Dependence on supplemental oxygen
CPT/HCPCS: 73502; 73560; 96372; 99283; J1885

== ENCOUNTER 2019-03-20 07:26 | Day surgery (SDC) | payer MEDICAID ==
[2019-03-20] MEDS ORDERED: Ketamine 500 mg/10 ML MDV IV ONE (07:27)
[2019-03-20] MEDS ORDERED: fentaNYL 100 MCG/2 ML SDV IV ONE (07:27)
[2019-03-20] MEDS ORDERED: Ketorolac 30 MG/ML SDV IVPUSH ONE ×2 (07:27→11:58)
[2019-03-20] MEDS ORDERED: Ondansetron 4 MG/2 ML SDV IVPUSH ONE (07:27)
[2019-03-20] MEDS ORDERED: Midazolam 1 MG/ML 2 ML SDV IV ONE (07:27)
[2019-03-20] MEDS ORDERED: Dexamethasone 4 MG/ML 5 ML MDV IVPUSH ONE (07:27)
[2019-03-20] MEDS ORDERED: Acetaminophen 1,000 MG/100 ML Infusion Bottle IV ONE (07:27)
[2019-03-20] MEDS ORDERED: Lidocaine 2% 100 MG/5 ML Syringe IVPUSH ONE (07:27)
[2019-03-20] MEDS ORDERED: Propofol 200 MG/20 ML SDV IV ONE (07:27)
[2019-03-20] MEDS ORDERED: Lactated Ringers 1,000 ML IV SCH (08:35)
[2019-03-20] MEDS ORDERED: ceFAZolin 2 GM in Premix Bag 1 BAG IV ONE (10:00)
[2019-03-20] MEDS ORDERED: Ropivacaine 49.25 ML, Ketorolac 30 MG, EPINEPHrine 0.5 MG, cloNIDine 80 MCG, Sodium Chl... INJECT SCH ×5 (10:00)
[2019-03-20] MEDS ORDERED: Bupivacaine 0.5%/EPINEPHrine 1:200,000 50 ML MDV ONE (10:43)
[2019-03-20] MEDS ORDERED: Gentamicin 40 MG/ML 2 ML Vial ONE (10:44)
[2019-03-20] MEDS ORDERED: EPINEPHrine 1 MG/ML SDV ONE (10:51)
[2019-03-20 12:33] VITALS: BP 137/84; PULSE 87
[2019-03-21] MEDS ORDERED: Lactated Ringers 1,000 ML IV SCH (08:00)
--- NOTE | 2019-03-31 11:32 | PCM.OPNOTE ---
- General Post-Op/Procedure Note Date of Surgery/Procedure: 03/20/19 Operative Procedure(s): right knee arthroscopy. chondroplasty. partial medial meniscus tear. partial synovectomy Pre Op Diagnosis: medial tibial chondromalacia. medial partial meniscus tear, radial. synovitis Post-Op Diagnosis: Same Anesthesia Technique: General ET Tube Primary Surgeon: Uziel Guerra EBL in mLs: 10 Complications: None Condition: Good
--- NOTE | 2019-03-31 11:38 | PCM.HPR ---
H & P Addendum review - H & P Addendum Review Date of Original H & P: 03/13/19 Date Reviewed: 03/20/19 Time Reviewed: 09:00 Please Note any Changes: no changes
--- NOTE | 2019-03-31 16:59 | OR ---
DATE OF OPERATION: 03/20/2019 SURGEON: Uziel Guerra DO PREOPERATIVE DIAGNOSIS: Right knee synovitis and partial medial meniscus tear with chondromalacia. POSTOPERATIVE DIAGNOSIS: Right knee synovitis and partial medial meniscus tear with chondromalacia. PROCEDURES: 1. Right knee arthroscopy. 2. Partial medial meniscus excision. 3. Partial synovectomy. 4. Chondroplasty, medial tibial plateau and patella. ANESTHESIA: General endotracheal intubation. FLUID: Lactated Ringer's solution. ESTIMATED BLOOD LOSS: 10 mL. COMPLICATIONS: None. SPECIMEN: None. DISCHARGE DISPOSITION: Stable to PACU. HISTORY AND INDICATIONS FOR THE PROCEDURE: The patient is very well known to me. We have seen her in clinic before. She had failed nonoperative treatment. She was noted to have a partial medial collateral ligament strain, which was treated nonoperatively. She was not improving and an MRI was obtained showing the above-mentioned pathology. Risks and benefits of the procedure were explained to the patient. Informed consent was obtained. DETAILS OF PROCEDURE: The patient was seen preoperatively by myself and the anesthesia staff in the preoperative holding area where the operative site was marked. She was brought to the operative suite by the Anesthesia staff where general anesthesia was administered. A well-padded tourniquet was placed on the right thigh. The left lower extremity was placed into a stirrup. The left thigh had a bump to increase flexion to prevent any femoral nerve issues. All extremities found to be well padded. The patient's right lower extremity was then prepped and draped in a sterile manner. Time-out was called identifying the correct patient, the correct procedure, the correct site, and that antibiotics had been within appropriate period of time. The right lower extremity was exsanguinated. Tourniquet was raised to 300 mmHg and let down after the procedure. The lateral portal was made first, trocar entered lateral portal, and then images of the knee were taken in the suprapatellar compartment as well as the medial and lateral gutter. Medial and lateral compartments, there was significant synovitis present as well as patellar chondromalacia and medial and tibial chondromalacia and a partial radial medial meniscus tear. The lateral compartment was well preserved. The medial portal was then made and the shaver and cutter and the ablation unit were used to perform an extensive partial synovectomy. I then identified the ACL and found that it was in good repair. I then performed a partial patellar chondroplasty as well as tibial chondroplasty. I also used the shaver and ablation unit to perform a partial medial meniscectomy. After our goals have been accomplished, we then removed our instruments and as much fluid as possible from the knee and then closed with 2 [id number] 3-0 nylon. I then injected my periarticular injection into the joint for pain control. Tourniquet was let down. Betadine-soaked Adaptic and sterile dressing were then placed with an Leonardo wrap over the right knee. The patient was allowed to awaken from general anesthesia and taken to the PACU in stable condition. /[id number] TONJA/JOE
== END 2019-03-20 12:31 | disposition home or self-care (01) ==
LOC: FB.SDS 07:26
PROVIDERS: ATTEND Orthopaedic Surgery
DX: S83.241A Other tear of medial meniscus, current injury, right knee, initial encounter (principal); M65.861 Other synovitis and tenosynovitis, right lower leg; M22.41 Chondromalacia patellae, right knee; M94.261 Chondromalacia, right knee; J44.9 Chronic obstructive pulmonary disease, unspecified; I10 Essential (primary) hypertension; G43.909 Migraine, unspecified, not intractable, without status migrainosus; F41.9 Anxiety disorder, unspecified; F17.210 Nicotine dependence, cigarettes, uncomplicated; Z79.52 Long term (current) use of systemic steroids; Z79.899 Other long term (current) drug therapy; Z88.8 Allergy status to other drugs, medicaments and biological substances
CPT/HCPCS: 29881; J0131; J0171; J0690; J0735; J1100; J1580; J1885; J2001; J2250; J2405; J2704; J2795; J3010; J3490; J7050; J7120

== ENCOUNTER 2019-03-22 02:46 | Emergency (ER) | payer MEDICAID ==
--- NOTE | 2019-03-22 03:43 | EDM.PDOC ---
ED HPI GENERAL MEDICAL PROBLEM - General Chief Complaint: Lower Extremity Injury/Pain Stated Complaint: LEG IS BLEEDING Time Seen by Provider: 03/22/19 03:15 Source of Information: Reports: Patient History Limitations: Reports: No Limitations - History of Present Illness INITIAL COMMENTS - FREE TEXT/NARRATIVE: 48-year-old female who had a right knee arthroscopy done yesterday by Dr. Guerra. She had no initial problems and was told to leave the Leonardo wrap in place for the next 24-48 hours. At approximately 1:30 this morning she awoke and noted that there was some itching to her knee. She had had some itching earlier and had removed her rapid. I'll she noticed that the dressing seemed to be somewhat saturated with blood but it appeared to be darkish or old type blood or some clots that came about as well she denies any pain in her knee and present without palpation she rates that pain as a 0/10 and this is after taking her pain medicines at home. She's had no fevers or chills. She has had no direct trauma to the area. She has normal sensation in her foot. No trouble breathing. There are no other associated signs or symptoms. There are no other modifying factors. Onset: Today (1:30 AM) Duration: Constant Location: Reports: Lower Extremity, Right (right knee) Quality: Reports: Other (no pain, just bleeding with dark blood) Severity: Mild (no real painjust concerned about the bleeding) Improves with: Reports: None Worsens with: Reports: None Context: Reports: Other (as above) Associated Symptoms: Reports: No Other Symptoms Treatments SHELLAC POLISHER: Reports: Other Medication(s) (pain medications) - Related Data Allergies Allergy/AdvReac Type Severity Reaction Status Date / Time citalopram Allergy Cannot Verified 03/20/19 08:00 Remember diphenhydramine HCl Allergy Hives Verified 03/20/19 08:00 [From Benadryl] gabapentin Allergy Hives Verified 03/20/19 08:00 zonisamide [From Zonegran] Allergy Nausea and Verified 03/20/19 08:00 Vomiting ANTI-DEPRESSANTS Allergy Hives Uncoded 03/20/19 08:00 FLU SHOT Allergy GBS Uncoded 03/20/19 08:00 Home Meds: Home Meds Albuterol [Proventil HFA] 1 - 2 puff PO Q6H PRN 07/20/15 [History] Tiotropium [Spiriva Handihaler] 1 puff INH DAILY 12/20/15 [History] ClonazePAM [KlonoPIN] 1 mg PO TID 04/13/16 [History] Potassium Chloride 10 meq PO DAILY 03/24/17 [History] buPROPion [Wellbutrin] 300 mg PO DAILY 03/24/17 [History] levETIRAcetam [Keppra] 1,000 mg PO BID 03/24/17 [History] Ipratropium/Albuterol Sulfate [Iprat-Albut 0.5-3(2.5) mg/3 ml] 3 ml IH QID PRN 04/20/18 [History] Budesonide/Formoterol Fumarate [Symbicort 160-4.5 Mcg Inhaler] 2 puff INH BID [History] ClonazePAM [KlonoPIN] 2 mg PO BEDTIME 06/08/18 [History] Cholecalciferol (Vitamin D3) [Vitamin D3] 1 tab PO DAILY 03/13/19 [History] DULoxetine HCl [Cymbalta] 1 cap PO DAILY 03/13/19 [History] Fluticasone Furoate [Flonase Sensimist] 27.5 mcg NASBOTH DAILY 03/13/19 [History ] Lisinopril [Prinivil] 1 tab PO DAILY 03/13/19 [History] Loperamide [Imodium AD] 1 tab PO QID PRN 03/13/19 [History] Montelukast [Singulair] 1 tab PO BEDTIME 03/13/19 [History] Oxybutynin Chloride [Ditropan Xl] 1 tab PO DAILY 03/13/19 [History] Past Medical History HEENT History: Reports: Impaired Vision Cardiovascular History: Reports: Hypertension Respiratory History: Reports: COPD, Pneumonia, Recurrent, Other (See Below) Other Respiratory History: EMPHYSEMA, uses O2 @ 2L/NC @ hs. Gastrointestinal History: Reports: Cholelithiasis, GERD, Irritable Bowel Syndrome Genitourinary History: Reports: Other (See Below) Other Genitourinary History: STATES HAD KIDNEY FAILURE TODDLER ET NO REASON GIVEN, RESOLVED ON ITS OWN. R) RENAL CYST GAS SUBSTATION OPERATOR History: Reports: Other GAS SUBSTATION OPERATOR History: 5 para 5 Musculoskeletal History: Reports: Arthritis, Back Pain, Chronic, Fracture, Fibromyalgia, Osteoarthritis, Osteoporosis, Other (See Below) Other Musculoskeletal History: R foot fx, Fusion on vertebrae 2,3 a defect. 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 Neurological History: Reports: Concussion, Migraines, Seizure Other Neuro History: STARTED IN 2013 Psychiatric History: Reports: Anxiety, Depression, Panic Attack, Suicide Attempt Endocrine/Metabolic History: Reports: Obesity/BMI 30+ Other Endocrine/Metabolic History: VITAMIN D DEFICIENCY - Infectious Disease History Infectious Disease History: Reports: Chicken Pox - Past Surgical History HEENT Surgical History: Reports: Oral Surgery Other HEENT Surgeries/Procedures: MULTIPLE TOOTH EXTRACTIONS UNDER GENERAL Cardiovascular Surgical History: Reports: Other (See Below) Other Cardiovascular Surgeries/Procedures: HISTORY OF LOOP HEART MONITOR IMPLANT ( WAS REMOVED ALREADY) GI Surgical History: Reports: Cholecystectomy, Colonoscopy, EGD Female Surgical History: Reports: Hysterectomy, Salpingo-Oophorectomy Other Female Surgeries/Procedures: BSO Musculoskeletal Surgical History: Reports: Carpal Tunnel Other Musculoskeletal Surgeries/Procedures:: bilat carpal tunnel surg, Social & Family History - Family History Family Medical History: Noncontributory - Tobacco Use Smoking Status *Q: Current Every Day Smoker - Caffeine Use Caffeine Use: Reports: Coffee - Alcohol Use Alcohol Use History: Yes Alcohol Use Frequency: Rarely - Living Situation & Occupation Living situation: Reports: Single Social History Comment: Here with family members. Review of Systems - Review of Systems Review Of Systems: See Below Constitutional: Reports: No Symptoms Eyes: Reports: No Symptoms Ears: Reports: No Symptoms Nose: Reports: No Symptoms Mouth/Throat: Reports: No Symptoms Respiratory: Reports: No Symptoms Cardiovascular: Reports: No Symptoms GI/Abdominal: Reports: No Symptoms Musculoskeletal: Reports: Joint Swelling (and ecchymosis of right knee) Skin: Reports: Other (incision on right knee with dark blood with some clots emanating consistent with hematoma that is draining) Neurological: Reports: No Symptoms ED EXAM, GENERAL - Physical Exam Exam: See Below Exam Limited By: No Limitations General Appearance: Alert, WD/WN, No Apparent Distress Eye Exam: Bilateral Eye: EOMI, Normal Inspection Ears: Normal External Exam Ear Exam: Bilateral Ear: Auricle Normal Nose: Normal Inspection, Normal Mucosa, No Blood Throat/Mouth: Normal Inspection, Normal Oropharynx, Normal Voice, No Airway Compromise Head: Atraumatic, Normocephalic Neck: Normal Inspection, Supple, Non-Tender, Full Range of Motion Respiratory/Chest: No Respiratory Distress, Lungs Clear, Normal Breath Sounds, No Accessory Muscle Use, Chest Non-Tender Cardiovascular: Normal Peripheral Pulses, Regular Rate, Rhythm, No JVD Peripheral Pulses: 2+: Radial (L), Radial (R), Dorsalis Pedis (L), Dorsalis Pedis (R) GI/Abdominal: Normal Bowel Sounds, Soft, Non-Tender, No Mass Back Exam: Normal Inspection Extremities: Normal Capillary Refill, Other (ecchymosis and drainage of dark blood with clots from arthroscopic incision area.) Neurological: Alert, Oriented, CN II-XII Intact, Normal Cognition, No Motor/ Sensory Deficits Skin Exam: Warm, Dry, Ecchymosis (around incision) Course - Re-Assessments/Exams Free Text/Narrative Re-Assessment/Exam: 03/22/19 03:23:The patient's exam is consistent with a hematoma that has drained. There does not appear to be any active drainage this point. The dressing was replaced with an Leonardo wrap and she was admonished to leave the Leonardo wrap in place for the next 24-48 hours. She may loosen the Leonardo wrap and she may replace the dressing as needed but she should leave the Leonardo wrap in place for the next 24-48 hours. Departure - Departure Time of Disposition: 03:40 Disposition: Home, Self-Care 01 Condition: Good Clinical Impression: Postoperative bleeding from incision, Postprocedural hematoma - Discharge Information Referrals: Garima Plunkett MURAL PAINTER [Primary Care Provider] - Forms: ED Department Discharge Additional Instructions: The bleeding from your knee represents bleeding from a hematoma underneath the skin following the knee arthroscopy. There did not appear to be any active bleeding at this time. You need to leave the Leonardo wrap intact for the next 48 hours. You may loosen the Leonardo wrap or replace any dirty dressings underneath the Leonardo wrap and then replace it. Follow-up with Dr. Guerra on 03/24/2019. Back to the emergency department for redness, increased swelling, increasing pain, fever or any other concerning sign or symptom.
[2019-03-22 07:26] VITALS: BP 136/62
== END 2019-03-22 03:50 | disposition home or self-care (01) ==
LOC: FB.ED 02:46
DX: M96.830 Postprocedural hemorrhage of a musculoskeletal structure following a musculoskeletal system procedure (principal); I10 Essential (primary) hypertension; J44.9 Chronic obstructive pulmonary disease, unspecified; F41.9 Anxiety disorder, unspecified; F32.9 Major depressive disorder, single episode, unspecified; F17.200 Nicotine dependence, unspecified, uncomplicated; Z88.8 Allergy status to other drugs, medicaments and biological substances; Z79.899 Other long term (current) drug therapy
CPT/HCPCS: 99283

== ENCOUNTER 2019-03-23 20:33 | Emergency (ER) | payer MEDICAID ==
[2019-03-23 20:50] VITALS: BP 134/92
[2019-03-23] MEDS ORDERED: HYDROmorphone 2 MG/ML SDV IM ONE (20:54)
[2019-03-23] MEDS ORDERED: Sulfamethoxazole/Trimethoprim 800-160 MG Tab PO ONE (20:54)
[2019-03-23] MEDS ORDERED: Promethazine 25 MG/ML SDV IM ONE (20:56)
--- NOTE | 2019-03-23 21:13 | EDM.PDOC ---
ED HPI GENERAL MEDICAL PROBLEM - General Stated Complaint: KNEE Time Seen by Provider: 03/23/19 20:40 Source of Information: Reports: Patient History Limitations: Reports: No Limitations - History of Present Illness INITIAL COMMENTS - FREE TEXT/NARRATIVE: 48-year-old female with right knee pain which has been increasing since surgery on 03/21/2019. The patient was seen by myself on 03/21/2019 after surgery secondary to some bleeding from the incision. This appeared to be decompression of a hematoma and there was no active bleeding. Her pain was controlled at this point. The dressing was changed and an Leonardo wrap was reapplied. Since then, she reports that the pain in her knee has increased and is now a 9/10 despite taking her Percocet for pain. She notes increased swelling in the knee. The pain is a throbbing and aching pain with a sharp component. There has been no fever. She has normal sensation in her foot. She has had one episode of vomiting today she feels related to her pain. She has been drinking wel and eating okay as well.she has had no fevers or chills. She's had no chest pain or trouble breathing. There are no other associated signs or symptoms. There are no other modifying factors. It should be noted that she does present here with one crutch and she has been bearing some weight on her right leg. I have advised her against this. Onset: Other (03/21/2019) Duration: Getting Worse Location: Reports: Lower Extremity, Right (right knee) Quality: Reports: Ache, Sharp, Throbbing Severity: Moderate (to severe) Improves with: Reports: None Worsens with: Reports: Other (palpation), Movement Context: Reports: Other (as above) Associated Symptoms: Reports: No Other Symptoms Treatments BAG LINER: Reports: Other Medication(s) (Percocet) right knee Pain Score (Numeric/FACES): 9 - Related Data Allergies Allergy/AdvReac Type Severity Reaction Status Date / Time citalopram Allergy Cannot Verified 03/23/19 20:50 Remember diphenhydramine HCl Allergy Hives Verified 03/23/19 20:50 [From Benadryl] gabapentin Allergy Hives Verified 03/23/19 20:50 zonisamide [From Zonegran] Allergy Nausea and Verified 03/23/19 20:50 Vomiting ANTI-DEPRESSANTS Allergy Hives Uncoded 03/20/19 08:00 FLU SHOT Allergy GBS Uncoded 03/20/19 08:00 Home Meds: Home Meds Albuterol [Proventil HFA] 1 - 2 puff PO Q6H PRN 07/20/15 [History] Tiotropium [Spiriva Handihaler] 1 puff INH DAILY 12/20/15 [History] ClonazePAM [KlonoPIN] 1 mg PO TID 04/13/16 [History] Potassium Chloride 10 meq PO DAILY 03/24/17 [History] buPROPion [Wellbutrin] 300 mg PO DAILY 03/24/17 [History] levETIRAcetam [Keppra] 1,000 mg PO BID 03/24/17 [History] Ipratropium/Albuterol Sulfate [Iprat-Albut 0.5-3(2.5) mg/3 ml] 3 ml IH QID PRN 04/20/18 [History] Budesonide/Formoterol Fumarate [Symbicort 160-4.5 Mcg Inhaler] 2 puff INH BID [History] ClonazePAM [KlonoPIN] 2 mg PO BEDTIME 06/08/18 [History] Cholecalciferol (Vitamin D3) [Vitamin D3] 1 tab PO DAILY 03/13/19 [History] DULoxetine HCl [Cymbalta] 1 cap PO DAILY 03/13/19 [History] Fluticasone Furoate [Flonase Sensimist] 27.5 mcg NASBOTH DAILY 03/13/19 [History ] Lisinopril [Prinivil] 1 tab PO DAILY 03/13/19 [History] Loperamide [Imodium AD] 1 tab PO QID PRN 03/13/19 [History] Montelukast [Singulair] 1 tab PO BEDTIME 03/13/19 [History] Oxybutynin Chloride [Ditropan Xl] 1 tab PO DAILY 03/13/19 [History] Codeine Sulfate 30 mg PO Q6H PRN #12 tab 03/23/19 [Rx] Sulfamethoxazole/Trimethoprim [Bactrim Ds Tablet] 1 each PO BID 7 Days #14 tablet 03/23/19 [Rx] oxyCODONE HCl/Acetaminophen [Oxycodone-Acetaminophen 5-325] 1 tab PO QID PRN [History] Past Medical History HEENT History: Reports: Impaired Vision Cardiovascular History: Reports: Hypertension Other Cardiovascular History: Low potassium Respiratory History: Reports: COPD, Pneumonia, Recurrent, Other (See Below) Other Respiratory History: EMPHYSEMA, uses O2 @ 2L/NC @ hs. Gastrointestinal History: Reports: Cholelithiasis, GERD, Irritable Bowel Syndrome Genitourinary History: Reports: Other (See Below) Other Genitourinary History: STATES HAD KIDNEY FAILURE TODDLER ET NO REASON GIVEN, RESOLVED ON ITS OWN. 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 Neurological History: Reports: Concussion, Migraines, Seizure Psychiatric History: Reports: Anxiety, Depression, Panic Attack, Suicide Attempt Endocrine/Metabolic History: Reports: Obesity/BMI 30+ Other Endocrine/Metabolic History: VITAMIN D DEFICIENCY - Infectious Disease History Infectious Disease History: Reports: Chicken Pox - Past Surgical History HEENT Surgical History: Reports: Oral Surgery Other HEENT Surgeries/Procedures: MULTIPLE TOOTH EXTRACTIONS UNDER GENERAL Cardiovascular Surgical History: Reports: Other (See Below) Other Cardiovascular Surgeries/Procedures: HISTORY OF LOOP HEART MONITOR IMPLANT ( WAS REMOVED ALREADY) GI Surgical History: Reports: Cholecystectomy, Colonoscopy, EGD Female Surgical History: Reports: Hysterectomy, Salpingo-Oophorectomy Other Female Surgeries/Procedures: BSO Musculoskeletal Surgical History: Reports: Arthroscopic Knee (right knee on 03/21), Carpal Tunnel Other Musculoskeletal Surgeries/Procedures:: bilat carpal tunnel surg, Social & Family History - Family History Family Medical History: Noncontributory - Tobacco Use Smoking Status *Q: Current Every Day Smoker - Caffeine Use Caffeine Use: Reports: Coffee - Living Situation & Occupation Living situation: Reports: Single Social History Comment: here with her sons. ED ROS GENERAL - Review of Systems Review Of Systems: See Below Constitutional: Reports: No Symptoms HEENT: Reports: No Symptoms Respiratory: Reports: No Symptoms Cardiovascular: Reports: No Symptoms GI/Abdominal: Reports: Vomiting (x one tonight) : Reports: No Symptoms Musculoskeletal: Reports: Joint Pain (right knee pain) Skin: Reports: Bruising (over right knee) Neurological: Reports: No Symptoms Hematologic/Lymphatic: Reports: No Symptoms Immunologic: Reports: No Symptoms ED EXAM, GENERAL - Physical Exam Exam: See Below Exam Limited By: No Limitations General Appearance: Alert, WD/WN, Moderate Distress (in pain) Eye Exam: Bilateral Eye: EOMI, Normal Inspection Ears: Normal External Exam Ear Exam: Bilateral Ear: Auricle Normal Nose: Normal Inspection, Normal Mucosa, No Blood Throat/Mouth: Normal Inspection, Normal Oropharynx, Normal Voice, No Airway Compromise Head: Atraumatic, Normocephalic Neck: Normal Inspection, Supple, Non-Tender, Full Range of Motion Respiratory/Chest: No Respiratory Distress, Lungs Clear, Normal Breath Sounds, No Accessory Muscle Use, Chest Non-Tender Cardiovascular: Normal Peripheral Pulses, Regular Rate, Rhythm, No JVD Peripheral Pulses: 2+: Dorsalis Pedis (L), Dorsalis Pedis (R) GI/Abdominal: Normal Bowel Sounds, Soft, Non-Tender, No Mass Back Exam: Normal Inspection Extremities: Normal Capillary Refill, Other (exam of the right knee did show ecchymosis on the anterior knee and there was some edema as well as evidence of possibly a subcutaneous hematoma. There was no redness or increased warmth. She had good perfusion peripherally with normal movement of her right ankle and foot.) Neurological: Alert, Oriented, CN II-XII Intact, Normal Cognition, No Motor/ Sensory Deficits Psychiatric: Anxious Skin Exam: Warm, Dry, No Rash Course - Vital Signs Last Recorded V/S: Last Vital Signs Temp 36.8 C 03/23/19 20:33 Pulse 101 H 03/23/19 20:33 Resp 20 03/23/19 20:33 BP 134/92 H 03/23/19 20:33 Pulse Ox 99 03/23/19 20:33 - Orders/Labs/Meds Meds: Medications Discontinued Medications Generic Name Dose Route Start Last Admin Trade Name Freq PRN Reason Stop Dose Admin Hydromorphone HCl 2 mg 03/23/19 20:54 03/23/19 21:07 Dilaudid IM 03/23/19 20:55 2 mg ONETIME ONE Administration Promethazine HCl 25 mg 03/23/19 20:56 03/23/19 21:07 Phenergan IM 03/23/19 20:57 25 mg ONETIME ONE Administration Trimethoprim/Sulfamethoxazole 2 tab 03/23/19 20:54 03/23/19 21:07 Septra Ds PO 03/23/19 20:55 2 tab ONETIME ONE Administration - Re-Assessments/Exams Free Text/Narrative Re-Assessment/Exam: 03/23/19 20:55: I discussed the patient's case with Dr. Guerra, orthopedic surgeon who performed the right knee arthroscopy, and he recommended that the patient continue with nonweightbearing on her right leg, continue to use the leonardo wrap over the right knee for comfort and support,place her on Bactrim DS and give her a prescription for codeine 30 mg to take in addition to her other pain medications as needed. He feels that she is okay for discharge and will follow-up telephonically with the patient tomorrow. Departure - Departure Time of Disposition: 21:20 Disposition: Home, Self-Care 01 Clinical Impression: Postoperative pain of knee Right knee pain Qualifiers: Chronicity: acute Qualified Code(s): M25.561 - Pain in right knee - Discharge Information Prescriptions: Codeine Sulfate 30 mg PO Q6H PRN #12 tab PRN Reason: uncontrolled pain Sulfamethoxazole/Trimethoprim [Bactrim Ds Tablet] 1 each PO BID 7 Days #14 tablet Instructions: Knee Pain, Adult Referrals: [facility] [Primary Care Provider] - Uziel Guerra DO [Physician] - Forms: ED Department Discharge Additional Instructions: You do have some swelling and a postoperative hematoma of the right knee but otherwise your knee looks good. I discussed your case with Dr. Guerra and he recommended the pain medication that I prescribed you (codeine 30 mg). He also wanted me to prescribe you Bactrim DS, an antibiotic. You'll need to start this tomorrow. He also wants you to arrive at registration at 9:30 AM tomorrow, 2018, for a block of your right need to be performed by anesthesia. He will follow-up with you tomorrow morning as well. You should stay with your right knee elevated higher the heart level as often as possible. Use your crutches with no weightbearing on your right leg. Back to the emergency department for fevers, unrelenting vomiting, trouble breathing or any other concerning sign or symptom. Hopefully, pain medication that I gave you will help her to get some rest tonight and Dr. Guerra and the anesthesiology department will be able to help you further tomorrow.
== END 2019-03-23 21:35 | disposition home or self-care (01) ==
LOC: FB.ED 20:33
DX: M96.840 Postprocedural hematoma of a musculoskeletal structure following a musculoskeletal system procedure (principal); M25.561 Pain in right knee; M19.90 Unspecified osteoarthritis, unspecified site; F41.9 Anxiety disorder, unspecified; F32.9 Major depressive disorder, single episode, unspecified; E66.9 Obesity, unspecified; J44.9 Chronic obstructive pulmonary disease, unspecified; Z98.890 Other specified postprocedural states; Z90.49 Acquired absence of other specified parts of digestive tract; Z90.710 Acquired absence of both cervix and uterus; Z90.722 Acquired absence of ovaries, bilateral; F17.200 Nicotine dependence, unspecified, uncomplicated; Z88.8 Allergy status to other drugs, medicaments and biological substances; Z87.01 Personal history of pneumonia (recurrent)
CPT/HCPCS: 96374; 96375; 99283; A9270; J1170; J2550

== ENCOUNTER 2019-07-07 17:57 | Emergency (ER) | payer MEDICAID ==
[2019-07-07] MEDS ORDERED: Acetaminophen/HYDROcodone 325-5 MG Tab PO ONE (18:25)
--- NOTE | 2019-07-07 18:31 | EDM.PDOC ---
ED HPI GENERAL MEDICAL PROBLEM - General Chief Complaint: Lower Extremity Injury/Pain Time Seen by Provider: 07/07/19 18:12 Source of Information: Reports: Patient History Limitations: Reports: No Limitations - History of Present Illness INITIAL COMMENTS - FREE TEXT/NARRATIVE: 49-year-old female with history of right knee pain for some time. She has been followed by Dr. Guerra, orthopedist at [facility], [place], and had an arthroscopic procedure on her right knee about 3-4 months ago. He referred the patient to Dr. Aguilar, orthopedist in [place], for further evaluation but the patient has not yet been to see Dr. Aguilar. The patient reports that she has ongoing pain in her right knee and she does not have any pain medication. The pain is not really any different than the pain she has had in the past but it is not responding to the ibuprofen that she has been taking. She has had no fevers or chills. There has been no new trauma. She rates the pain as a 9/10. It is sharp and aching type pain that is worse with movement. She feels that it is under her knee cap and goes throughout her knee. There are no other associated signs or symptoms. There are no other modifying factors. Onset: Today Duration: Constant Location: Reports: Lower Extremity, Right (Right knee) Quality: Reports: Ache, Sharp, Throbbing Severity: Moderate (to an ear) Improves with: Reports: Rest Worsens with: Reports: Other (Palpation), Movement Associated Symptoms: Reports: No Other Symptoms Treatments WEIGHMASTER: Reports: NSAIDS (Ibuprofen) right knee Pain Score (Numeric/FACES): 9 - Related Data Allergies Allergy/AdvReac Type Severity Reaction Status Date / Time citalopram Allergy Nausea Verified 05/28/19 11:42 diphenhydramine HCl Allergy Leg Cramps Verified 05/28/19 11:42 [From Benadryl] gabapentin Allergy Confusion Verified 05/28/19 11:42 zonisamide [From Zonegran] Allergy Nausea and Verified 05/28/19 11:42 Vomiting ANTI-DEPRESSANTS Allergy Nausea and Uncoded 05/28/19 11:42 Vomiting FLU SHOT Allergy GBS Uncoded 03/20/19 08:00 Home Meds: Home Meds Tiotropium [Spiriva Handihaler] 1 puff INH DAILY 12/20/15 [History] ClonazePAM [KlonoPIN] 1 mg PO BID 04/13/16 [History] Potassium Chloride 10 meq PO DAILY 03/24/17 [History] buPROPion [Wellbutrin] 300 mg PO DAILY 03/24/17 [History] levETIRAcetam [Keppra] 1,000 mg PO BID 03/24/17 [History] Ipratropium/Albuterol Sulfate [Iprat-Albut 0.5-3(2.5) mg/3 ml] 3 ml IH QID PRN 04/20/18 [History] Budesonide/Formoterol Fumarate [Symbicort 160-4.5 Mcg Inhaler] 2 puff INH BID [History] ClonazePAM [KlonoPIN] 2 mg PO BEDTIME 06/08/18 [History] Cholecalciferol (Vitamin D3) [Vitamin D3] 1 tab PO DAILY 03/13/19 [History] DULoxetine HCl [Cymbalta] 1 cap PO DAILY 03/13/19 [History] Lisinopril [Prinivil] 1 tab PO DAILY 03/13/19 [History] Loperamide [Imodium AD] 1 tab PO QID PRN 03/13/19 [History] Oxybutynin Chloride [Ditropan Xl] 1 tab PO DAILY 03/13/19 [History] oxyCODONE HCl/Acetaminophen [Oxycodone-Acetaminophen 5-325] 1 tab PO QID PRN [History] Past Medical History HEENT History: Reports: Impaired Vision Cardiovascular History: Reports: Hypertension Other Cardiovascular History: Low potassium Respiratory History: Reports: COPD, Pneumonia, Recurrent, Other (See Below) Other Respiratory History: EMPHYSEMA, uses O2 @ 2L/NC @ hs. Gastrointestinal History: Reports: GERD, Irritable Bowel Syndrome Genitourinary History: Reports: Other (See Below) Other Genitourinary History: STATES HAD KIDNEY FAILURE TODDLER ET NO REASON GIVEN, RESOLVED ON ITS OWN. 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 Neurological History: Reports: Concussion, Migraines, Seizure Other Neuro History: STARTED IN 2013 Psychiatric History: Reports: Anxiety, Depression, Panic Attack, Suicide Attempt Endocrine/Metabolic History: Reports: Obesity/BMI 30+ Other Endocrine/Metabolic History: VITAMIN D DEFICIENCY - Infectious Disease History Infectious Disease History: Reports: Chicken Pox - Past Surgical History HEENT Surgical History: Reports: Oral Surgery Other HEENT Surgeries/Procedures: MULTIPLE TOOTH EXTRACTIONS UNDER GENERAL Cardiovascular Surgical History: Reports: Other (See Below) Other Cardiovascular Surgeries/Procedures: HISTORY OF LOOP HEART MONITOR IMPLANT ( WAS REMOVED ALREADY) GI Surgical History: Reports: Cholecystectomy, Colonoscopy, EGD Female Surgical History: Reports: Hysterectomy, Salpingo-Oophorectomy Other Female Surgeries/Procedures: BSO Musculoskeletal Surgical History: Reports: Arthroscopic Knee, Carpal Tunnel Other Musculoskeletal Surgeries/Procedures:: bilat carpal tunnel surg, Social & Family History - Tobacco Use Smoking Status *Q: Current Every Day Smoker Years of Tobacco use: 30 Packs/Tins Daily: 0.5 - Caffeine Use Caffeine Use: Reports: Coffee - Alcohol Use Alcohol Use History: Yes Alcohol Use Frequency: Rarely (Maybe 2-3 times a year) - Living Situation & Occupation Living situation: Reports: Single, with Family Review of Systems - Review of Systems Review Of Systems: See Below Constitutional: Reports: No Symptoms Eyes: Reports: No Symptoms Ears: Reports: No Symptoms Nose: Reports: No Symptoms Mouth/Throat: Reports: No Symptoms Respiratory: Reports: No Symptoms Cardiovascular: Reports: No Symptoms GI/Abdominal: Reports: No Symptoms Genitourinary: Reports: No Symptoms Musculoskeletal: Reports: Joint Pain (Right knee pain which is chronic) Skin: Reports: No Symptoms Neurological: Reports: Dizziness (Which is also chronic) ED EXAM, GENERAL - Physical Exam Exam: See Below Exam Limited By: No Limitations General Appearance: Alert, WD/WN, Moderate Distress (Appears in some discomfort) Eye Exam: Bilateral Eye: EOMI, Normal Inspection, PERRL Ears: Normal External Exam, Hearing Grossly Normal Ear Exam: Bilateral Ear: Auricle Normal Nose: Normal Inspection, Normal Mucosa, No Blood Throat/Mouth: Normal Inspection, Normal Oropharynx, Normal Voice, No Airway Compromise Head: Atraumatic, Normocephalic Neck: Normal Inspection, Supple, Non-Tender, Full Range of Motion Respiratory/Chest: No Respiratory Distress, Lungs Clear, Normal Breath Sounds, No Accessory Muscle Use, Chest Non-Tender Cardiovascular: Normal Peripheral Pulses, Regular Rate, Rhythm, No Edema, No JVD Peripheral Pulses: 2+: Radial (L), Radial (R), Dorsalis Pedis (L), Dorsalis Pedis (R) GI/Abdominal: Normal Bowel Sounds, Soft, Non-Tender, No Mass Back Exam: Normal Inspection Extremities: Normal Inspection, No Pedal Edema, Normal Capillary Refill, Limited Range of Motion (Secondary to pain), Other (No effusion noted. No definite ligamentous laxity noted.). No: Increased Warmth, Redness Neurological: Alert, Oriented, CN II-XII Intact, Normal Cognition, No Motor/ Sensory Deficits Skin Exam: Warm, Dry, Intact, Normal Color, No Rash Course - Vital Signs Last Recorded V/S: Last Vital Signs Temp 36.6 C 07/07/19 17:57 Pulse 111 H 07/07/19 17:57 Resp 18 07/07/19 17:57 BP 129/104 H 07/07/19 17:57 Pulse Ox 100 07/07/19 17:57 - Orders/Labs/Meds Orders: Active Orders 24 hr Category Date Time Status Acetaminophen/HYDROcodone [[place] 325-5 MG] Med 07/07/19 18:25 Once 2 tab PO ONETIME ONE Medication Orders Hydrocodone Bitart/Acetaminophen ([place] 325-5 Mg) 2 tab PO ONETIME ONE Stop: 07/07/19 18:26 Meds: Medications Generic Name Dose Route Start Last Admin Trade Name Freq PRN Reason Stop Dose Admin Hydrocodone Bitart/Acetaminophen 2 tab 07/07/19 18:25 [place] 325-5 Mg PO 07/07/19 18:26 ONETIME ONE - Re-Assessments/Exams Free Text/Narrative Re-Assessment/Exam: 07/07/19 18:30: Patient with chronic right knee pain. Her exam does not show any evidence of infection or new problem. She is supposed to be following up with an orthopedist in [place]. I don't see any in that necessitates any testing or acute intervention at this time. I have told the patient that I would not be able to provide her with any prescription for pain medication. I have told her that she would need to go through her primary doctor for any pain medications. I did give the patient a single dose of hydrocodone 5/325, 2 tablets by mouth today. Departure - Departure Time of Disposition: 18:35 Disposition: Home, Self-Care 01 Condition: Good (Stable) Clinical Impression: Chronic pain of right knee - Discharge Information Instructions: Knee Pain, Adult, [id number], Chronic Pain, Adult Referrals: PCP,None [Primary Care Provider] - Additional Instructions: I do not see any evidence of infection or an acute problem with your right knee at this time. You need to follow-up with the orthopedist that was recommended. For any pain management problems or for need for pain control, you should go through your primary doctor as we would not be able to provide you with any prescriptions for pain medications. Back to the emergency department for fever, increased swelling, redness, or any other concerning sign or symptom. - My Orders Last 24 Hours: My Active Orders 07/07/19 18:25 Acetaminophen/HYDROcodone [[place] 325-5 MG] 2 tab PO ONETIME ONE - Assessment/Plan Last 24 Hours: My Active Orders 07/07/19 18:25 Acetaminophen/HYDROcodone [[place] 325-5 MG] 2 tab PO ONETIME ONE
[2019-07-07 19:03] VITALS: BP 108/85; PULSE 100
== END 2019-07-07 18:40 | disposition home or self-care (01) ==
LOC: FB.ED 17:57
DX: M25.561 Pain in right knee (principal); G89.29 Other chronic pain; I10 Essential (primary) hypertension; J43.9 Emphysema, unspecified; E66.9 Obesity, unspecified; F41.9 Anxiety disorder, unspecified; G40.909 Epilepsy, unspecified, not intractable, without status epilepticus; Z79.899 Other long term (current) drug therapy; Z79.51 Long term (current) use of inhaled steroids; Z68.30 Body mass index [BMI] 30.0-30.9, adult
CPT/HCPCS: 99283; A9270

== ENCOUNTER 2019-08-10 18:40 | Emergency (ER) | payer MEDICAID ==
[2019-08-10] MEDS ORDERED: Acetaminophen/HYDROcodone 325-5 MG Tab PO ONE ×2 (18:41→19:28)
--- NOTE | 2019-08-10 19:31 | EDM.PDOC ---
ED HPI GENERAL MEDICAL PROBLEM - General Chief Complaint: Lower Extremity Injury/Pain Stated Complaint: FEEL 2 NIGHTS AGO,HIT RT KNEE, BRUISE BACK OF LT L Time Seen by Provider: 08/10/19 19:28 Source of Information: Reports: Patient History Limitations: Reports: No Limitations - History of Present Illness INITIAL COMMENTS - FREE TEXT/NARRATIVE: Patient has h/o chronic knee pain and has increased pain due to fall two days ago. Also has a bruise on the left thigh due to the fall but this area is not painful. Denies any other injuries. Onset Date: 08/08/19 Duration: Day(s): (2) Location: Reports: Lower Extremity, Right Severity: Moderate - Related Data Allergies Allergy/AdvReac Type Severity Reaction Status Date / Time citalopram Allergy Nausea Verified 05/28/19 11:42 diphenhydramine HCl Allergy Leg Cramps Verified 05/28/19 11:42 [From Benadryl] gabapentin Allergy Confusion Verified 05/28/19 11:42 zonisamide [From Zonegran] Allergy Nausea and Verified 05/28/19 11:42 Vomiting ANTI-DEPRESSANTS Allergy Nausea and Uncoded 05/28/19 11:42 Vomiting FLU SHOT Allergy GBS Uncoded 03/20/19 08:00 Home Meds: Home Meds Tiotropium [Spiriva Handihaler] 1 puff INH DAILY 12/20/15 [History] ClonazePAM [KlonoPIN] 1 mg PO BID 04/13/16 [History] Potassium Chloride 10 meq PO DAILY 03/24/17 [History] buPROPion [Wellbutrin] 300 mg PO DAILY 03/24/17 [History] levETIRAcetam [Keppra] 1,000 mg PO BID 03/24/17 [History] Ipratropium/Albuterol Sulfate [Iprat-Albut 0.5-3(2.5) mg/3 ml] 3 ml IH QID PRN 04/20/18 [History] Budesonide/Formoterol Fumarate [Symbicort 160-4.5 Mcg Inhaler] 2 puff INH BID [History] ClonazePAM [KlonoPIN] 2 mg PO BEDTIME 06/08/18 [History] Cholecalciferol (Vitamin D3) [Vitamin D3] 1 tab PO DAILY 03/13/19 [History] DULoxetine HCl [Cymbalta] 1 cap PO DAILY 03/13/19 [History] Lisinopril [Prinivil] 1 tab PO DAILY 03/13/19 [History] Loperamide [Imodium AD] 1 tab PO QID PRN 03/13/19 [History] Oxybutynin Chloride [Ditropan Xl] 1 tab PO DAILY 03/13/19 [History] oxyCODONE HCl/Acetaminophen [Oxycodone-Acetaminophen 5-325] 1 tab PO QID PRN [History] Past Medical History HEENT History: Reports: Impaired Vision Cardiovascular History: Reports: Hypertension Other Cardiovascular History: Low potassium Respiratory History: Reports: COPD, Pneumonia, Recurrent, Other (See Below) Other Respiratory History: EMPHYSEMA, uses O2 @ 2L/NC @ hs. Gastrointestinal History: Reports: GERD, Irritable Bowel Syndrome Genitourinary History: Reports: Other (See Below) Other Genitourinary History: STATES HAD KIDNEY FAILURE TODDLER ET NO REASON GIVEN, RESOLVED ON ITS OWN. 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 Neurological History: Reports: Concussion, Migraines, Seizure Other Neuro History: STARTED IN 2013 Psychiatric History: Reports: Anxiety, Depression, Panic Attack, Suicide Attempt Endocrine/Metabolic History: Reports: Obesity/BMI 30+ Other Endocrine/Metabolic History: VITAMIN D DEFICIENCY - Infectious Disease History Infectious Disease History: Reports: Chicken Pox - Past Surgical History HEENT Surgical History: Reports: Oral Surgery Other HEENT Surgeries/Procedures: MULTIPLE TOOTH EXTRACTIONS UNDER GENERAL Cardiovascular Surgical History: Reports: Other (See Below) Other Cardiovascular Surgeries/Procedures: HISTORY OF LOOP HEART MONITOR IMPLANT ( WAS REMOVED ALREADY) GI Surgical History: Reports: Cholecystectomy, Colonoscopy, EGD Female Surgical History: Reports: Hysterectomy, Salpingo-Oophorectomy Other Female Surgeries/Procedures: BSO Musculoskeletal Surgical History: Reports: Arthroscopic Knee, Carpal Tunnel Other Musculoskeletal Surgeries/Procedures:: bilat carpal tunnel surg, Social & Family History - Family History Family Medical History: Noncontributory - Caffeine Use Caffeine Use: Reports: Coffee - Living Situation & Occupation Living situation: Reports: Single, with Family Review of Systems - Review of Systems Review Of Systems: Comprehensive ROS is negative, except as noted in HPI. ED EXAM, GENERAL - Physical Exam Exam: See Below Exam Limited By: No Limitations General Appearance: Alert, WD/WN, No Apparent Distress Throat/Mouth: No Airway Compromise Head: Atraumatic, Normocephalic Neck: Full Range of Motion Respiratory/Chest: No Respiratory Distress Peripheral Pulses: 2+: Dorsalis Pedis (R) Extremities: Other (Tenderness, ecchymosis and swelling right knee) Neurological: Alert, Normal Cognition, No Motor/Sensory Deficits Skin Exam: Warm, Dry, Intact, Ecchymosis (right knee and left thigh) Course - Vital Signs Text/Narrative:: T97.7, BP 131/96, HR 75, Sa02 100% RA - Orders/Labs/Meds Orders: Active Orders 24 hr Category Date Time Status Knee 3V Rt [CR] Stat Exams 08/10/19 19:27 Taken Meds: Medications Discontinued Medications Generic Name Dose Route Start Last Admin Trade Name Freq PRN Reason Stop Dose Admin Hydrocodone Bitart/Acetaminophen 1 tab 08/10/19 19:28 Prospect 325-5 Mg PO 08/10/19 19:29 ONETIME ONE - Radiology Interpretation Free Text/Narrative:: Right Knee XR: No osseous abnormalities. (ED provider interpretation) Departure - Departure Time of Disposition: 20:04 Disposition: Home, Self-Care 01 Condition: Good Clinical Impression: Contusion of knee, right Qualifiers: Encounter type: initial encounter Qualified Code(s): S80.01XA - Contusion of right knee, initial encounter - Discharge Information *PRESCRIPTION DRUG MONITORING PROGRAM REVIEWED*: Yes *COPY OF PRESCRIPTION DRUG MONITORING REPORT IN PATIENT DILIP: No Instructions: Contusion, [id number] Referrals: Uziel Guerra DO [Physician] - 2 Days Forms: ED Department Discharge Additional Instructions: Take the Prospect as directed. Follow up with Dr. Guerra in 2-3 days. - My Orders Last 24 Hours: My Active Orders 08/10/19 19:27 Knee 3V Rt [CR] Stat - Assessment/Plan Last 24 Hours: My Active Orders 08/10/19 19:27 Knee 3V Rt [CR] Stat
[2019-08-15 17:31] VITALS: BP 131/96; PULSE 75
== END 2019-08-10 20:25 | disposition home or self-care (01) ==
LOC: FB.ED 18:40
DX: S80.01XA Contusion of right knee, initial encounter (principal); S70.12XA Contusion of left thigh, initial encounter; I10 Essential (primary) hypertension; K21.9 Gastro-esophageal reflux disease without esophagitis; J43.9 Emphysema, unspecified; M19.90 Unspecified osteoarthritis, unspecified site; F41.0 Panic disorder [episodic paroxysmal anxiety]; F32.9 Major depressive disorder, single episode, unspecified; E66.9 Obesity, unspecified; Z68.29 Body mass index [BMI] 29.0-29.9, adult; Z88.1 Allergy status to other antibiotic agents; Z88.8 Allergy status to other drugs, medicaments and biological substances; Z88.7 Allergy status to serum and vaccine; Z79.899 Other long term (current) drug therapy; W19.XXXA Unspecified fall, initial encounter
CPT/HCPCS: 73562; 99283; A9270

== ENCOUNTER 2019-10-15 17:36 | Emergency (ER) | payer MEDICAID, OTHER ==
[2019-10-15] MEDS ORDERED: Acetaminophen 500 MG Tab PO ONE (18:55)
[2019-10-15] MEDS ORDERED: traMADol 50 MG Tab PO ONE (18:55)
[2019-10-15] MEDS ORDERED: methylPREDNISolone Sodium Succinate 125 MG/2 ML SDV IM ONE (18:55)
[2019-10-15] MEDS: Albuterol/Ipratropium 3.0-0.5 MG/3 ML Neb Soln NEB ONE ×2 (19:12→19:18)
--- NOTE | 2019-10-15 19:29 | EDM.PDOC ---
ED HPI GENERAL MEDICAL PROBLEM - General Chief Complaint: General Stated Complaint: RT KNEE PAIN Time Seen by Provider: 10/15/19 17:40 Source of Information: Reports: Patient History Limitations: Reports: No Limitations - History of Present Illness INITIAL COMMENTS - FREE TEXT/NARRATIVE: Patient presented to the ED because of right knee pain and increasing cough and dyspnea. She has a h/o chronic right knee pain and for the past couple of days her right knee just gave out. There is no recent trauma or injury. She also has a h/o COPD and since yesterday she c/o increasing dyspnea and coughing which is non-productive. There is no fever or chills. - Related Data Allergies Allergy/AdvReac Type Severity Reaction Status Date / Time citalopram Allergy Nausea Verified 08/15/19 17:31 diphenhydramine HCl Allergy Leg Cramps Verified 08/15/19 17:31 [From Benadryl] gabapentin Allergy Confusion Verified 08/15/19 17:31 zonisamide [From Zonegran] Allergy Nausea and Verified 08/15/19 17:31 Vomiting ANTI-DEPRESSANTS Allergy Nausea and Uncoded 08/15/19 17:31 Vomiting FLU SHOT Allergy GBS Uncoded 08/15/19 17:31 Home Meds: Home Meds ClonazePAM [KlonoPIN] 1 mg PO BID 04/13/16 [History] Potassium Chloride 10 meq PO DAILY 03/24/17 [History] buPROPion [Wellbutrin] 300 mg PO DAILY 03/24/17 [History] levETIRAcetam [Keppra] 1,000 mg PO BID 03/24/17 [History] Ipratropium/Albuterol Sulfate [Iprat-Albut 0.5-3(2.5) mg/3 ml] 3 ml IH QID PRN 04/20/18 [History] Budesonide/Formoterol Fumarate [Symbicort 160-4.5 Mcg Inhaler] 2 puff INH BID [History] ClonazePAM [KlonoPIN] 2 mg PO BEDTIME 06/08/18 [History] Cholecalciferol (Vitamin D3) [Vitamin D3] 1 tab PO DAILY 03/13/19 [History] DULoxetine HCl [Cymbalta] 1 cap PO DAILY 03/13/19 [History] Loperamide [Imodium AD] 1 tab PO QID PRN 03/13/19 [History] Oxybutynin Chloride [Ditropan Xl] 1 tab PO DAILY 03/13/19 [History] Azithromycin [Zithromax] 250 mg PO DAILY #6 tab 10/15/19 [Rx] predniSONE [Prednisone] 40 mg PO DAILY #10 tablet 10/15/19 [Rx] traMADol [Ultram] 50 mg PO Q6H PRN #10 tab 10/15/19 [Rx] Past Medical History HEENT History: Reports: Impaired Vision Cardiovascular History: Reports: Hypertension Other Cardiovascular History: Low potassium Respiratory History: Reports: COPD, Pneumonia, Recurrent, Other (See Below) Other Respiratory History: EMPHYSEMA, uses O2 @ 2L/NC @ hs. Gastrointestinal History: Reports: GERD, Irritable Bowel Syndrome Genitourinary History: Reports: Other (See Below) Other Genitourinary History: STATES HAD KIDNEY FAILURE TODDLER ET NO REASON GIVEN, RESOLVED ON ITS OWN. 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 Endocrine/Metabolic History: Reports: Obesity/BMI 30+ Other Endocrine/Metabolic History: VITAMIN D DEFICIENCY - Infectious Disease History Infectious Disease History: Reports: Chicken Pox - Past Surgical History HEENT Surgical History: Reports: Oral Surgery Other HEENT Surgeries/Procedures: MULTIPLE TOOTH EXTRACTIONS UNDER GENERAL Cardiovascular Surgical History: Reports: Other (See Below) Other Cardiovascular Surgeries/Procedures: HISTORY OF LOOP HEART MONITOR IMPLANT ( WAS REMOVED ALREADY) GI Surgical History: Reports: Cholecystectomy, Colonoscopy, EGD Female Surgical History: Reports: Hysterectomy, Salpingo-Oophorectomy Other Female Surgeries/Procedures: BSO Musculoskeletal Surgical History: Reports: Arthroscopic Knee, Carpal Tunnel Other Musculoskeletal Surgeries/Procedures:: bilat carpal tunnel surg, Social & Family History - Family History Family Medical History: Noncontributory - Tobacco Use Smoking Status *Q: Current Every Day Smoker Years of Tobacco use: 43 Packs/Tins Daily: 0.5 - Caffeine Use Caffeine Use: Reports: Soda - Recreational Drug Use Recreational Drug Use: No - Living Situation & Occupation Living situation: Reports: Single, with Family ED ROS GENERAL - Review of Systems Review Of Systems: See Below Constitutional: Reports: No Symptoms HEENT: Reports: No Symptoms Respiratory: Reports: Shortness of Breath, Wheezing, Cough. Denies: Sputum Cardiovascular: Reports: No Symptoms Endocrine: Reports: No Symptoms GI/Abdominal: Reports: No Symptoms : Reports: No Symptoms Musculoskeletal: Reports: Joint Pain Skin: Reports: No Symptoms Neurological: Reports: No Symptoms Psychiatric: Reports: No Symptoms Hematologic/Lymphatic: Reports: No Symptoms Immunologic: Reports: No Symptoms ED EXAM, GENERAL - Physical Exam Exam: See Below Exam Limited By: No Limitations General Appearance: Alert, No Apparent Distress Eye Exam: Bilateral Eye: PERRL Ears: Normal External Exam, Normal Canal Nose: Normal Inspection, Normal Mucosa Throat/Mouth: Normal Inspection, Normal Lips, Normal Teeth Head: Atraumatic, Normocephalic Neck: Normal Inspection, Supple, Non-Tender, Full Range of Motion Respiratory/Chest: Rhonchi, Wheezing. No: No Respiratory Distress GI/Abdominal: Normal Bowel Sounds, Non-Tender, No Organomegaly Back Exam: Normal Inspection, Full Range of Motion Extremities: Normal Inspection, Normal Range of Motion Course - Vital Signs Text/Narrative:: refused neb treatment solumedrol 125 mg IM x1 tramadol 100 mg po x1 tylenol 1000 mg po x1 Last Recorded V/S: Last Vital Signs Temp 36.2 C 10/15/19 17:36 Pulse 82 10/15/19 19:35 Resp 17 10/15/19 19:35 BP 110/95 H 10/15/19 19:35 Pulse Ox 98 10/15/19 19:35 - Orders/Labs/Meds Orders: Active Orders 24 hr Category Date Time Status RT Aerosol Therapy [RC] ASDIRECTED Care 10/15/19 18:56 Active Meds: Medications Discontinued Medications Generic Name Dose Route Start Last Admin Trade Name Freq PRN Reason Stop Dose Admin Acetaminophen 1,000 mg 10/15/19 18:55 10/15/19 19:13 Tylenol Extra Strength PO 10/15/19 18:56 1,000 mg ONETIME ONE Administration Albuterol/Ipratropium 3 ml 10/15/19 18:55 10/15/19 19:18 Duoneb 3.0-0.5 Mg/3 Ml NEB 10/15/19 18:56 Not Given ONETIME ONE Methylprednisolone Sodium Succinate 125 mg 10/15/19 18:55 10/15/19 19:09 Solu-Medrol IM 10/15/19 18:56 125 mg ONETIME ONE Administration Tramadol HCl 100 mg 10/15/19 18:55 10/15/19 19:12 Ultram PO 10/15/19 18:56 100 mg ONETIME ONE Administration Departure - Departure Time of Disposition: 19:25 Disposition: Home, Self-Care 01 Condition: Good Clinical Impression: COPD exacerbation, Knee pain, Chronic pain of right knee - Discharge Information Prescriptions: Azithromycin [Zithromax] 250 mg PO DAILY #6 tab predniSONE [Prednisone] 40 mg PO DAILY #10 tablet traMADol [Ultram] 50 mg PO Q6H PRN #10 tab PRN Reason: Pain Instructions: Chronic Obstructive Pulmonary Disease Exacerbation, [id number] Referrals: Garima Plunkett TUNNELING MACHINE OPERATOR [Primary Care Provider] - Forms: ED Department Discharge Additional Instructions: please read discharge instructions on COPD exacerbation prednisone 40 mg daily for 5 days z-florecita as directed tramadol 50 mg every 6 hours as needed for pain nen treatment every 6 hours as needed follow up as needed Sepsis Event Note - Focused Exam Date Exam was Performed: 10/16/19 Time Exam was Performed: 07:41 - My Orders Last 24 Hours: My Active Orders 10/15/19 18:56 RT Aerosol Therapy [RC] ASDIRECTED - Assessment/Plan Last 24 Hours: My Active Orders 10/15/19 18:56 RT Aerosol Therapy [RC] ASDIRECTED
[2019-10-15 19:51] VITALS: BP 110/95; PULSE 82
== END 2019-10-15 19:44 | disposition home or self-care (01) ==
LOC: FB.ED 17:36
DX: J43.9 Emphysema, unspecified (principal); M25.561 Pain in right knee; I10 Essential (primary) hypertension; J44.9 Chronic obstructive pulmonary disease, unspecified; G40.909 Epilepsy, unspecified, not intractable, without status epilepticus; E66.9 Obesity, unspecified; F41.9 Anxiety disorder, unspecified; F32.9 Major depressive disorder, single episode, unspecified; F17.210 Nicotine dependence, cigarettes, uncomplicated; Z88.8 Allergy status to other drugs, medicaments and biological substances; Z88.7 Allergy status to serum and vaccine; Z79.899 Other long term (current) drug therapy; Z79.51 Long term (current) use of inhaled steroids; Z68.25 Body mass index [BMI] 25.0-25.9, adult
CPT/HCPCS: 96372; 99283-25; A9270-GY; J2930; J7620-GY

== ENCOUNTER 2019-10-26 22:48 | Emergency (ER) | payer MEDICAID ==
[2019-10-26] MEDS ORDERED: methylPREDNISolone Sodium Succinate 125 MG/2 ML SDV IVPUSH ONE (23:59)
[2019-10-27] MEDS ORDERED: Ketorolac 60 MG/2 ML SDV IM ONE (00:01)
--- NOTE | 2019-10-27 00:14 | EDM.PDOC ---
ED HPI GENERAL MEDICAL PROBLEM - General Stated Complaint: FIBRO MYALGA FLAREUP Time Seen by Provider: 10/26/19 22:55 Source of Information: Reports: Patient ([id number]) History Limitations: Reports: No Limitations - History of Present Illness INITIAL COMMENTS - FREE TEXT/NARRATIVE: pt states she has fibromyalgia and has been getting increased fatigue , body aches and pains. When she gets the flare up , she feels weak and tired , muscles ache more , has to get injection in the ER Onset: Today Onset Date: 10/26/19 Duration: Day(s):, Intermittent, Waxing/Waning Location: Reports: Generalized (muscle aches and weakness) Quality: Reports: Ache, Pressure Improves with: Reports: Heat Therapy, Rest Worsens with: Reports: Movement Associated Symptoms: Reports: Malaise, Weakness - Related Data Allergies Allergy/AdvReac Type Severity Reaction Status Date / Time citalopram Allergy Nausea Verified 10/27/19 06:18 diphenhydramine HCl Allergy Leg Cramps Verified 10/27/19 06:18 [From Benadryl] gabapentin Allergy Confusion Verified 10/27/19 06:18 zonisamide [From Zonegran] Allergy Nausea and Verified 10/27/19 06:18 Vomiting ANTI-DEPRESSANTS Allergy Nausea and Uncoded 10/27/19 06:33 Vomiting FLU SHOT Allergy GBS Uncoded 10/27/19 06:33 Home Meds: Home Meds ClonazePAM [KlonoPIN] 1 mg PO BID 04/13/16 [History] Potassium Chloride 10 meq PO DAILY 03/24/17 [History] buPROPion [Wellbutrin] 300 mg PO DAILY 03/24/17 [History] levETIRAcetam [Keppra] 1,000 mg PO BID 03/24/17 [History] Ipratropium/Albuterol Sulfate [Iprat-Albut 0.5-3(2.5) mg/3 ml] 3 ml IH QID PRN 04/20/18 [History] Budesonide/Formoterol Fumarate [Symbicort 160-4.5 Mcg Inhaler] 2 puff INH BID [History] ClonazePAM [KlonoPIN] 2 mg PO BEDTIME 06/08/18 [History] Cholecalciferol (Vitamin D3) [Vitamin D3] 1 tab PO DAILY 03/13/19 [History] DULoxetine HCl [Cymbalta] 1 cap PO DAILY 03/13/19 [History] Loperamide [Imodium AD] 1 tab PO QID PRN 03/13/19 [History] Oxybutynin Chloride [Ditropan Xl] 1 tab PO DAILY 03/13/19 [History] predniSONE [Prednisone] 40 mg PO DAILY #10 tablet 10/15/19 [Rx] traMADol [Ultram] 50 mg PO Q6H PRN #10 tab 10/15/19 [Rx] Past Medical History HEENT History: Reports: Impaired Vision Cardiovascular History: Reports: Hypertension Other Cardiovascular History: Low potassium Respiratory History: Reports: COPD, Pneumonia, Recurrent, Other (See Below) Other Respiratory History: EMPHYSEMA, uses O2 @ 2L/NC @ hs. Gastrointestinal History: Reports: GERD, Irritable Bowel Syndrome Genitourinary History: Reports: Other (See Below) Other Genitourinary History: STATES HAD KIDNEY FAILURE TODDLER ET NO REASON GIVEN, RESOLVED ON ITS OWN. 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 Endocrine/Metabolic History: Reports: Obesity/BMI 30+ Other Endocrine/Metabolic History: VITAMIN D DEFICIENCY - Infectious Disease History Infectious Disease History: Reports: Chicken Pox - Past Surgical History HEENT Surgical History: Reports: Oral Surgery Other HEENT Surgeries/Procedures: MULTIPLE TOOTH EXTRACTIONS UNDER GENERAL Cardiovascular Surgical History: Reports: Other (See Below) Other Cardiovascular Surgeries/Procedures: HISTORY OF LOOP HEART MONITOR IMPLANT ( WAS REMOVED ALREADY) GI Surgical History: Reports: Cholecystectomy, Colonoscopy, EGD Female Surgical History: Reports: Hysterectomy, Salpingo-Oophorectomy Other Female Surgeries/Procedures: BSO Musculoskeletal Surgical History: Reports: Arthroscopic Knee, Carpal Tunnel Other Musculoskeletal Surgeries/Procedures:: bilat carpal tunnel surg, Social & Family History - Family History Family Medical History: Noncontributory - Caffeine Use Caffeine Use: Reports: Soda - Living Situation & Occupation Living situation: Reports: Single, with Family ED ROS GENERAL - Review of Systems Review Of Systems: Comprehensive ROS is negative, except as noted in HPI. ED EXAM, GENERAL - Physical Exam Exam: See Below Exam Limited By: No Limitations General Appearance: Alert, WD/WN, No Apparent Distress Eye Exam: Bilateral Eye: EOMI Ears: Normal TMs Nose: Normal Inspection Throat/Mouth: Normal Oropharynx Head: Atraumatic, Normocephalic Neck: Supple, Non-Tender, Full Range of Motion Respiratory/Chest: Lungs Clear Cardiovascular: Regular Rate, Rhythm GI/Abdominal: Soft, Non-Tender Back Exam: Full Range of Motion Extremities: Normal Range of Motion, No Pedal Edema Neurological: Alert, Oriented, CN II-XII Intact Psychiatric: Normal Affect Skin Exam: Warm Course - Vital Signs Last Recorded V/S: Last Vital Signs Temp 36.3 C 10/26/19 23:40 Pulse 80 10/26/19 23:40 Resp 18 10/26/19 23:40 BP 121/87 10/26/19 23:40 Pulse Ox 99 10/26/19 23:40 - Orders/Labs/Meds Meds: Medications Discontinued Medications Generic Name Dose Route Start Last Admin Trade Name Shazia PRN Reason Stop Dose Admin Ketorolac Tromethamine 60 mg 10/27/19 00:01 10/27/19 00:04 Toradol IM 10/27/19 00:02 60 mg ONETIME ONE Administration Methylprednisolone Sodium Succinate 125 mg 10/26/19 23:59 10/27/19 00:04 Solu-Medrol IVPUSH 10/27/19 00:00 125 mg ONETIME ONE Administration Departure - Departure Time of Disposition: 12:15 Disposition: Home, Self-Care 01 Condition: Good Clinical Impression: Fibromyalgia - Discharge Information *PRESCRIPTION DRUG MONITORING PROGRAM REVIEWED*: Not Applicable *COPY OF PRESCRIPTION DRUG MONITORING REPORT IN PATIENT DILIP: Not Applicable Referrals: Garima Plunkett NP [Primary Care Provider] - Forms: ED Department Discharge Additional Instructions: Continue with all other medications as directed Sepsis Event Note - Focused Exam Date Exam was Performed: 10/28/19 Time Exam was Performed: 16:44
[2019-10-27 06:19] VITALS: BP 121/87; PULSE 80
== END 2019-10-27 00:30 | disposition home or self-care (01) ==
LOC: FB.ED 22:48
DX: M79.7 Fibromyalgia (principal); I10 Essential (primary) hypertension; J43.9 Emphysema, unspecified; R56.9 Unspecified convulsions; F32.9 Major depressive disorder, single episode, unspecified; F41.9 Anxiety disorder, unspecified; E87.6 Hypokalemia; E66.9 Obesity, unspecified; Z68.28 Body mass index [BMI] 28.0-28.9, adult; Z88.8 Allergy status to other drugs, medicaments and biological substances; Z88.7 Allergy status to serum and vaccine; Z99.81 Dependence on supplemental oxygen; Z79.899 Other long term (current) drug therapy; Z79.51 Long term (current) use of inhaled steroids; Z79.52 Long term (current) use of systemic steroids
CPT/HCPCS: 96372; 96374; 99284; J1885; J2930

== ENCOUNTER 2019-12-23 11:48 | Emergency (ER) | payer MEDICAID ==
[2019-12-23] MEDS ORDERED: Ketorolac 30 MG/ML SDV IM ONE (12:29)
--- NOTE | 2019-12-23 12:45 | EDM.PDOC ---
ED HPI GENERAL MEDICAL PROBLEM - General Chief Complaint: Back Pain or Injury Stated Complaint: L HIP PAIN Time Seen by Provider: 12/23/19 12:30 Source of Information: Reports: Patient, Old Records History Limitations: Reports: No Limitations - History of Present Illness INITIAL COMMENTS - FREE TEXT/NARRATIVE: Andra comes into [facility] ED with L lower pelvic and back pain following a fall onto 2 steps about 10 days ago. She lost consciousness momentarily, and wound up on the floor. She rested and then got up to ambulate back to her room. There has been residual lower back and pelvic pain ever since. She discussed with PCP by phone earlier today, who recommended an ED visit. She has been taking analgesics at home. - Related Data Allergies Allergy/AdvReac Type Severity Reaction Status Date / Time citalopram Allergy Nausea Verified 10/27/19 06:18 diphenhydramine HCl Allergy Leg Cramps Verified 10/27/19 06:18 [From Benadryl] gabapentin Allergy Confusion Verified 10/27/19 06:18 zonisamide [From Zonegran] Allergy Nausea and Verified 10/27/19 06:18 Vomiting ANTI-DEPRESSANTS Allergy Nausea and Uncoded 10/27/19 06:33 Vomiting FLU SHOT Allergy GBS Uncoded 10/27/19 06:33 Home Meds: Home Meds ClonazePAM [KlonoPIN] 1 mg PO BID 04/13/16 [History] Potassium Chloride 10 meq PO DAILY 03/24/17 [History] buPROPion [Wellbutrin] 300 mg PO DAILY 03/24/17 [History] levETIRAcetam [Keppra] 1,000 mg PO BID 03/24/17 [History] Ipratropium/Albuterol Sulfate [Iprat-Albut 0.5-3(2.5) mg/3 ml] 3 ml IH QID PRN 04/20/18 [History] Budesonide/Formoterol Fumarate [Symbicort 160-4.5 Mcg Inhaler] 2 puff INH BID [History] ClonazePAM [KlonoPIN] 2 mg PO BEDTIME 06/08/18 [History] Cholecalciferol (Vitamin D3) [Vitamin D3] 1 tab PO DAILY 03/13/19 [History] DULoxetine HCl [Cymbalta] 1 cap PO DAILY 03/13/19 [History] Loperamide [Imodium AD] 1 tab PO QID PRN 03/13/19 [History] Oxybutynin Chloride [Ditropan Xl] 1 tab PO DAILY 03/13/19 [History] predniSONE [Prednisone] 40 mg PO DAILY #10 tablet 10/15/19 [Rx] traMADol [Ultram] 50 mg PO Q6H PRN #10 tab 10/15/19 [Rx] Past Medical History HEENT History: Reports: Impaired Vision Cardiovascular History: Reports: Hypertension Other Cardiovascular History: Low potassium Respiratory History: Reports: COPD, Pneumonia, Recurrent, Other (See Below) Other Respiratory History: EMPHYSEMA, uses O2 @ 2L/NC @ hs. Gastrointestinal History: Reports: GERD, Irritable Bowel Syndrome Genitourinary History: Reports: Other (See Below) Other Genitourinary History: STATES HAD KIDNEY FAILURE TODDLER ET NO REASON GIVEN, RESOLVED ON ITS OWN. 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 Endocrine/Metabolic History: Reports: Obesity/BMI 30+ Other Endocrine/Metabolic History: VITAMIN D DEFICIENCY - Infectious Disease History Infectious Disease History: Reports: Chicken Pox - Past Surgical History HEENT Surgical History: Reports: Oral Surgery Other HEENT Surgeries/Procedures: MULTIPLE TOOTH EXTRACTIONS UNDER GENERAL Cardiovascular Surgical History: Reports: Other (See Below) Other Cardiovascular Surgeries/Procedures: HISTORY OF LOOP HEART MONITOR IMPLANT ( WAS REMOVED ALREADY) GI Surgical History: Reports: Cholecystectomy, Colonoscopy, EGD Female Surgical History: Reports: Hysterectomy, Salpingo-Oophorectomy Other Female Surgeries/Procedures: BSO Musculoskeletal Surgical History: Reports: Arthroscopic Knee, Carpal Tunnel Other Musculoskeletal Surgeries/Procedures:: bilat carpal tunnel surg, Social & Family History - Family History Family Medical History: Noncontributory - Caffeine Use Caffeine Use: Reports: Soda - Living Situation & Occupation Living situation: Reports: Single, with Family ED ROS GENERAL - Review of Systems Review Of Systems: Comprehensive ROS is negative, except as noted in HPI. ED EXAM,LOWER BACK PAIN/INJURY - Physical Exam Exam: See Below Exam Limited By: No Limitations General Appearance: Alert, WD/WN, No Apparent Distress Head: Atraumatic, Normocephalic Neck: Normal Inspection, Supple Respiratory/Chest: Lungs Clear Cardiovascular: Regular Rate, Rhythm GI/Abdominal: Normal Bowel Sounds, Soft, Non-Tender, No Organomegaly, No Distention, No Mass Back Exam: Decreased Range of Motion, Other (limited tenderness overlying the L SI joint, L sacrospinalis mm, neg SN tenderness; L hip motion unimpaired) Extremities: Normal Inspection, Normal Range of Motion Neurological: Alert, Normal Mood/Affect, Normal Dorsiflexion, CN II-XII Intact, Normal Plantar Flexion, Normal Reflexes Psychiatric: Normal Affect, Anxious Skin Exam: Warm, Dry, Intact, Normal Color, No Rash Lymphatic: No Adenopathy Course - Vital Signs Text/Narrative:: I reviewed L hip and pelvis x rays with radiologist, neg for fx. - Orders/Labs/Meds Orders: Active Orders 24 hr Category Date Time Status Hip Min 2V or 3V w Pelvis Lt [CR] Stat Exams 12/23/19 12:26 Taken Meds: Medications Discontinued Medications Generic Name Dose Route Start Last Admin Trade Name Shazia PRN Reason Stop Dose Admin Ketorolac Tromethamine 30 mg 12/23/19 12:29 12/23/19 12:33 Toradol IM 12/23/19 12:30 30 mg ONETIME ONE Administration Departure - Departure Time of Disposition: 13:12 Disposition: Home, Self-Care 01 Condition: Fair Clinical Impression: Sacroiliac joint pain - Discharge Information *PRESCRIPTION DRUG MONITORING PROGRAM REVIEWED*: Not Applicable *COPY OF PRESCRIPTION DRUG MONITORING REPORT IN PATIENT DILIP: Not Applicable Referrals: Garima Plunkett POULTRY PATHOLOGIST [Primary Care Provider] - Forms: ED Department Discharge Sepsis Event Note - Focused Exam Date Exam was Performed: 12/23/19 Time Exam was Performed: 13:09 - Problem List & Annotations (1) Sacroiliac joint pain SNOMED Code(s): 595397585 Code(s): M53.3 - SACROCOCCYGEAL DISORDERS, NOT ELSEWHERE CLASSIFIED Status : Acute Current Visit: Yes Annotation/Comment:: I sugget heat alt with cold packs, NSAIDs for pain. - Problem List Review Problem List Initiated/Reviewed/Updated: Yes - My Orders Last 24 Hours: My Active Orders 12/23/19 12:26 Hip Min 2V or 3V w Pelvis Lt [CR] Stat - Assessment/Plan Last 24 Hours: My Active Orders 12/23/19 12:26 Hip Min 2V or 3V w Pelvis Lt [CR] Stat Plan: Follow up with PCP if needed.
--- NOTE | 2019-12-23 13:14 | CR ---
INDICATION: Fell 10 days ago, pain iliac area on the left. LEFT HIP WITH PELVIS: AP view of the pelvis as well as an AP view of the left hip and a lateral view of the left hip were obtained 12/23/19 and compared with 03/07/19. Bone density appeared fairly normal with relatively minimal degenerative changes , slightly more prominent at the right hip. The hip joint spaces, however were well maintained. There is some sclerosis in the intertrochanteric areas compatible with minimal bone infarcts. No other significant appearing focal bone abnormalities were identified. No evidence of fracture or dislocation was seen. Sacroiliac joints appear to be intact. Decreased disk space may be present at L4-5. IMPRESSION: No acute fracture or dislocation. Report was given in person to Dr. Sharp soon after the examination was completed. [facility]
[2019-12-23 13:46] VITALS: BP 108/79; PULSE 86
== END 2019-12-23 13:26 | disposition home or self-care (01) ==
LOC: FB.ED 11:48
DX: M53.3 Sacrococcygeal disorders, not elsewhere classified (principal); I10 Essential (primary) hypertension; J44.9 Chronic obstructive pulmonary disease, unspecified; K21.9 Gastro-esophageal reflux disease without esophagitis; M19.90 Unspecified osteoarthritis, unspecified site; F41.0 Panic disorder [episodic paroxysmal anxiety]; F32.9 Major depressive disorder, single episode, unspecified; E66.9 Obesity, unspecified; Z68.28 Body mass index [BMI] 28.0-28.9, adult; Z90.49 Acquired absence of other specified parts of digestive tract; Z88.1 Allergy status to other antibiotic agents; Z88.8 Allergy status to other drugs, medicaments and biological substances; Z88.7 Allergy status to serum and vaccine; Z79.899 Other long term (current) drug therapy
CPT/HCPCS: 73502-LT; 96372; 99283-25; J1885

== ENCOUNTER 2020-01-09 16:15 | Emergency (ER) | payer MEDICAID ==
--- NOTE | 2020-01-09 17:19 | EDM.PDOC ---
ED HPI GENERAL MEDICAL PROBLEM - General Chief Complaint: Back Pain or Injury Stated Complaint: BACK PAIN Time Seen by Provider: 01/09/20 16:45 Source of Information: Reports: Patient History Limitations: Reports: No Limitations - History of Present Illness INITIAL COMMENTS - FREE TEXT/NARRATIVE: pt with chronic back pain states she was given script for 20 pills on 12/24 and has since run out yet to have telemedicine appt with back surgeon to schedule surgery states back pain has gotten worse despite being on multiple medication Onset: Today Onset Date: 01/09/20 Duration: Hour(s): Location: Reports: Back Quality: Reports: Ache, Dull Severity: Moderate Improves with: Reports: None Worsens with: Reports: Movement Context: Reports: Activity Associated Symptoms: Reports: Headaches, Weakness Bilateral Lower Back Pain Score (Numeric/FACES): 10 - Related Data Allergies Allergy/AdvReac Type Severity Reaction Status Date / Time citalopram Allergy Nausea Verified 10/27/19 06:18 diphenhydramine HCl Allergy Leg Cramps Verified 10/27/19 06:18 [From Benadryl] gabapentin Allergy Confusion Verified 10/27/19 06:18 zonisamide [From Zonegran] Allergy Nausea and Verified 10/27/19 06:18 Vomiting ANTI-DEPRESSANTS Allergy Nausea and Uncoded 10/27/19 06:33 Vomiting FLU SHOT Allergy GBS Uncoded 10/27/19 06:33 Home Meds: Home Meds ClonazePAM [KlonoPIN] 1 mg PO BID 04/13/16 [History] Potassium Chloride 10 meq PO DAILY 03/24/17 [History] buPROPion [Wellbutrin] 300 mg PO DAILY 03/24/17 [History] levETIRAcetam [Keppra] 1,000 mg PO BID 03/24/17 [History] Ipratropium/Albuterol Sulfate [Iprat-Albut 0.5-3(2.5) mg/3 ml] 3 ml IH QID PRN 04/20/18 [History] Budesonide/Formoterol Fumarate [Symbicort 160-4.5 Mcg Inhaler] 2 puff INH BID [History] ClonazePAM [KlonoPIN] 2 mg PO BEDTIME 06/08/18 [History] Cholecalciferol (Vitamin D3) [Vitamin D3] 1 tab PO DAILY 03/13/19 [History] DULoxetine HCl [Cymbalta] 1 cap PO DAILY 03/13/19 [History] Loperamide [Imodium AD] 1 tab PO QID PRN 03/13/19 [History] Oxybutynin Chloride [Ditropan Xl] 1 tab PO DAILY 03/13/19 [History] predniSONE [Prednisone] 40 mg PO DAILY #10 tablet 10/15/19 [Rx] traMADol [Ultram] 50 mg PO Q6H PRN #10 tab 10/15/19 [Rx] Acetaminophen/HYDROcodone [[place] 325-5 MG] 1 tab PO TID PRN #8 tab 01/09/20 [Rx] Meloxicam 15 mg PO DAILY 01/09/20 [History] Tiotropium [Spiriva Handihaler] 1 dose INH DAILY 01/09/20 [History] methocarbamoL [Methocarbamol] 500 mg PO QID PRN 01/09/20 [History] traZODone HCl [Trazodone HCl] 100 mg PO BEDTIME 01/09/20 [History] Past Medical History HEENT History: Reports: Impaired Vision Cardiovascular History: Reports: Hypertension Other Cardiovascular History: Low potassium Respiratory History: Reports: COPD, Pneumonia, Recurrent, Other (See Below) Other Respiratory History: EMPHYSEMA, uses O2 @ 2L/NC @ hs. Gastrointestinal History: Reports: GERD, Irritable Bowel Syndrome Genitourinary History: Reports: Other (See Below) Other Genitourinary History: STATES HAD KIDNEY FAILURE TODDLER ET NO REASON GIVEN, RESOLVED ON ITS OWN. 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 Endocrine/Metabolic History: Reports: Obesity/BMI 30+ Other Endocrine/Metabolic History: VITAMIN D DEFICIENCY - Infectious Disease History Infectious Disease History: Reports: Chicken Pox - Past Surgical History HEENT Surgical History: Reports: Oral Surgery Other HEENT Surgeries/Procedures: MULTIPLE TOOTH EXTRACTIONS UNDER GENERAL Cardiovascular Surgical History: Reports: Other (See Below) Other Cardiovascular Surgeries/Procedures: HISTORY OF LOOP HEART MONITOR IMPLANT ( WAS REMOVED ALREADY) GI Surgical History: Reports: Cholecystectomy, Colonoscopy, EGD Female Surgical History: Reports: Hysterectomy, Salpingo-Oophorectomy Other Female Surgeries/Procedures: BSO Musculoskeletal Surgical History: Reports: Arthroscopic Knee, Carpal Tunnel Other Musculoskeletal Surgeries/Procedures:: bilat carpal tunnel surg, Social & Family History - Family History Family Medical History: Noncontributory - Tobacco Use Smoking Status *Q: Never Smoker - Caffeine Use Caffeine Use: Reports: Coffee, Soda - Recreational Drug Use Recreational Drug Use: No - Living Situation & Occupation Living situation: Reports: Single, with Family ED ROS GENERAL - Review of Systems Review Of Systems: Comprehensive ROS is negative, except as noted in HPI. ED EXAM,LOWER BACK PAIN/INJURY - Physical Exam Exam: See Below Exam Limited By: No Limitations General Appearance: Alert, WD/WN, No Apparent Distress Eye Exam: Bilateral Eye: EOMI Ears: Normal External Exam Head: Atraumatic, Normocephalic Neck: Supple, Non-Tender Respiratory/Chest: Lungs Clear, Normal Breath Sounds Cardiovascular: Regular Rate, Rhythm, No Edema GI/Abdominal: Soft, Non-Tender Back Exam: Decreased Range of Motion, Muscle Spasm, Paraspinal Tenderness, Vertebral Tenderness Extremities: Normal Inspection, Limited Range of Motion Neurological: Alert, CN II-XII Intact, Abnormal Gait Psychiatric: Depressed Mood, Tearful Skin Exam: Warm Lymphatic: No Adenopathy Course - Vital Signs Last Recorded V/S: Last Vital Signs Temp 36.7 C 01/09/20 16:36 Pulse 80 01/09/20 16:36 Resp 18 01/09/20 16:36 BP 138/92 H 01/09/20 16:36 Pulse Ox 94 L 01/09/20 16:36 Departure - Departure Time of Disposition: 17:20 Disposition: Home, Self-Care 01 Condition: Fair Clinical Impression: Sacroiliac joint pain, Chronic back pain greater than 3 months duration Lumbar back sprain Qualifiers: Encounter type: initial encounter Qualified Code(s): S33.5XXA - Sprain of ligaments of lumbar spine, initial encounter - Discharge Information *PRESCRIPTION DRUG MONITORING PROGRAM REVIEWED*: Yes *COPY OF PRESCRIPTION DRUG MONITORING REPORT IN PATIENT DILIP: Yes Prescriptions: Acetaminophen/HYDROcodone [[place] 325-5 MG] 1 tab PO TID PRN #8 tab PRN Reason: Pain (Severe 7-10) Instructions: Back Injury Prevention, [id number], Core Strength Exercises, Chronic Back Pain, [id number], Pain Medicine Instructions, [id number], How to Use Cold Therapy Referrals: Garima Plunkett UNCLAIMED PROPERTY MANAGER [Primary Care Provider] - Forms: ED Department Discharge Additional Instructions: 1) make appt to see your PCP for further treatment of chronic back pain 2) make appt to see Ortho for scheduling of back surgery Sepsis Event Note - Evaluation Sepsis Screening Result: No Definite Risk - Focused Exam Vital Signs: Vital Signs Temp Pulse Resp BP Pulse Ox 01/09/20 16:36 36.7 C 80 18 138/92 H 94 L Date Exam was Performed: 01/10/20 Time Exam was Performed: 02:23
== END 2020-01-09 17:30 | disposition home or self-care (01) ==
LOC: FB.ED 16:15
CPT/HCPCS: 99283

== ENCOUNTER 2020-02-11 14:57 | Emergency (ER) | payer MEDICAID ==
[2020-02-11 15:17] VITALS: BP 114/87; PULSE 102
[2020-02-11] MEDS ORDERED: traMADol 50 MG Tab PO ONE (15:32)
[2020-02-11] MEDS ORDERED: Acetaminophen 500 MG Tab PO ONE (15:32)
--- NOTE | 2020-02-11 16:14 | EDM.PDOC ---
ED HPI GENERAL MEDICAL PROBLEM - General Chief Complaint: Back Pain or Injury Stated Complaint: BACK ALL THE WAY TO THE LEG Time Seen by Provider: 02/11/20 15:20 Source of Information: Reports: Patient History Limitations: Reports: No Limitations - History of Present Illness INITIAL COMMENTS - FREE TEXT/NARRATIVE: Patient presented to the ED because of her Chronic low back pain and urine incontinence. She took her muscle relaxant without any relief. There is no dysuria, urgency, or frequency. She is scheduled to have a spinal surgery next month. Treatments DYNAMITE SHOOTER: Reports: Other (see below) Other Treatments DYNAMITE SHOOTER: see med list Back Pain Score (Numeric/FACES): 9 - Related Data Allergies Allergy/AdvReac Type Severity Reaction Status Date / Time citalopram Allergy Nausea Verified 10/27/19 06:18 diphenhydramine HCl Allergy Leg Cramps Verified 10/27/19 06:18 [From Benadryl] gabapentin Allergy Confusion Verified 10/27/19 06:18 zonisamide [From Zonegran] Allergy Nausea and Verified 10/27/19 06:18 Vomiting ANTI-DEPRESSANTS Allergy Nausea and Uncoded 10/27/19 06:33 Vomiting FLU SHOT Allergy GBS Uncoded 10/27/19 06:33 Home Meds: Home Meds ClonazePAM [KlonoPIN] 1 mg PO BID 04/13/16 [History] Potassium Chloride 10 meq PO DAILY 03/24/17 [History] buPROPion [Wellbutrin] 300 mg PO DAILY 03/24/17 [History] levETIRAcetam [Keppra] 1,000 mg PO BID 03/24/17 [History] Ipratropium/Albuterol Sulfate [Iprat-Albut 0.5-3(2.5) mg/3 ml] 3 ml IH QID PRN 04/20/18 [History] Budesonide/Formoterol Fumarate [Symbicort 160-4.5 Mcg Inhaler] 2 puff INH BID [History] ClonazePAM [KlonoPIN] 2 mg PO BEDTIME 06/08/18 [History] Cholecalciferol (Vitamin D3) [Vitamin D3] 1 tab PO DAILY 03/13/19 [History] DULoxetine HCl [Cymbalta] 1 cap PO DAILY 03/13/19 [History] Loperamide [Imodium AD] 1 tab PO QID PRN 03/13/19 [History] Oxybutynin Chloride [Ditropan Xl] 1 tab PO DAILY 03/13/19 [History] Meloxicam 15 mg PO DAILY 01/09/20 [History] Tiotropium [Spiriva Handihaler] 1 dose INH DAILY 01/09/20 [History] methocarbamoL [Methocarbamol] 500 mg PO QID PRN 01/09/20 [History] traZODone HCl [Trazodone HCl] 100 mg PO BEDTIME 01/09/20 [History] Acetaminophen/HYDROcodone [[place] 325-5 MG] 1 - 2 tab PO Q6H PRN #10 tab [Rx] Past Medical History HEENT History: Reports: Impaired Vision Cardiovascular History: Reports: Hypertension Other Cardiovascular History: Low potassium Respiratory History: Reports: COPD, Pneumonia, Recurrent, Other (See Below) Other Respiratory History: EMPHYSEMA, uses O2 @ 2L/NC @ hs. Gastrointestinal History: Reports: GERD, Irritable Bowel Syndrome Genitourinary History: Reports: Other (See Below) Other Genitourinary History: STATES HAD KIDNEY FAILURE TODDLER ET NO REASON GIVEN, RESOLVED ON ITS OWN. 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 Endocrine/Metabolic History: Reports: Obesity/BMI 30+ Other Endocrine/Metabolic History: VITAMIN D DEFICIENCY - Infectious Disease History Infectious Disease History: Reports: Chicken Pox - Past Surgical History HEENT Surgical History: Reports: Oral Surgery Other HEENT Surgeries/Procedures: MULTIPLE TOOTH EXTRACTIONS UNDER GENERAL Cardiovascular Surgical History: Reports: Other (See Below) Other Cardiovascular Surgeries/Procedures: HISTORY OF LOOP HEART MONITOR IMPLANT ( WAS REMOVED ALREADY) GI Surgical History: Reports: Cholecystectomy, Colonoscopy, EGD Female Surgical History: Reports: Hysterectomy, Salpingo-Oophorectomy Other Female Surgeries/Procedures: BSO Musculoskeletal Surgical History: Reports: Arthroscopic Knee, Carpal Tunnel Other Musculoskeletal Surgeries/Procedures:: bilat carpal tunnel surg, Social & Family History - Family History Family Medical History: Noncontributory - Tobacco Use Smoking Status *Q: Current Every Day Smoker Years of Tobacco use: 40 Packs/Tins Daily: 0.5 - Caffeine Use Caffeine Use: Reports: Coffee, Soda - Living Situation & Occupation Living situation: Reports: Single, with Family ED ROS GENERAL - Review of Systems Review Of Systems: See Below Constitutional: Reports: No Symptoms HEENT: Reports: No Symptoms Respiratory: Reports: No Symptoms Cardiovascular: Reports: No Symptoms Endocrine: Reports: No Symptoms GI/Abdominal: Reports: No Symptoms : Reports: No Symptoms Musculoskeletal: Reports: Back Pain Skin: Reports: No Symptoms Neurological: Reports: No Symptoms ED EXAM,LOWER BACK PAIN/INJURY - Physical Exam Exam: See Below Exam Limited By: No Limitations General Appearance: Alert, No Apparent Distress Ears: Normal External Exam Nose: Normal Inspection Throat/Mouth: Normal Inspection Head: Atraumatic Neck: Normal Inspection Respiratory/Chest: No Respiratory Distress Cardiovascular: Normal Peripheral Pulses Back Exam: Normal Inspection, Muscle Spasm Extremities: Normal Inspection, Normal Range of Motion, Non-Tender Neurological: Alert, Normal Mood/Affect, Normal Dorsiflexion Course - Vital Signs Text/Narrative:: ua-neg tramadol 100 mg and tylenol 1000 mg po x1 Last Recorded V/S: Last Vital Signs Temp 36.4 C 02/11/20 15:15 Pulse 102 H 02/11/20 15:15 Resp 18 02/11/20 15:15 BP 114/87 02/11/20 15:15 Pulse Ox 95 02/11/20 15:15 - Orders/Labs/Meds Labs: Laboratory Tests 02/11/20 Range/Units 15:43 Urine Color Yellow (YELLOW) Urine Appearance Clear (CLEAR) Urine pH 5.0 (5.0-6.5) Ur Specific [place] 1.010 (1.010-1.025) Urine Protein Negative (NEGATIVE) mg/dL Urine Glucose (UA) Normal (NORMAL) mg/dL Urine Ketones Negative (NEGATIVE) mg/dL Urine Occult Blood Negative (NEGATIVE) Urine Nitrite Negative (NEGATIVE) Urine Bilirubin Negative (NEGATIVE) Urine Urobilinogen Normal (NEGATIVE) mg/dL Ur Leukocyte Esterase Negative (NEGATIVE) Urine RBC 0-5 (0-5) Urine WBC 0-5 (0-5) Ur Squamous Epith Cells Few H (NS,R,O) Urine Bacteria Few H (NS) Meds: Medications Discontinued Medications Generic Name Dose Route Start Last Admin Trade Name Freq PRN Reason Stop Dose Admin Acetaminophen 1,000 mg 02/11/20 15:32 02/11/20 15:50 Tylenol Extra Strength PO 02/11/20 15:33 1,000 mg ONETIME ONE Administration Tramadol HCl 100 mg 02/11/20 15:32 02/11/20 15:44 Ultram PO 02/11/20 15:33 100 mg ONETIME ONE Administration Departure - Departure Time of Disposition: 16:15 Disposition: Home, Self-Care 01 Condition: Good Clinical Impression: Chronic low back pain, Urine incontinence - Discharge Information Prescriptions: Acetaminophen/HYDROcodone [[place] 325-5 MG] 1 - 2 tab PO Q6H PRN #10 tab PRN Reason: Pain Instructions: Urinary Incontinence, Chronic Back Pain, [id number] Referrals: Garima Plunkett RN RADIOLOGY [Primary Care Provider] - Forms: ED Department Discharge Additional Instructions: continue your methocarbamol take norco 5/325, 1-2 tablets every 4-6 hours as needed for pain keep your appointment for your upcoming spinal surgery Sepsis Event Note - Evaluation Sepsis Screening Result: No Definite Risk - Focused Exam Vital Signs: Vital Signs Temp Pulse Resp BP Pulse Ox 02/11/20 15:15 36.4 C 102 H 18 114/87 95 Date Exam was Performed: 02/11/20 Time Exam was Performed: 16:21
== END 2020-02-11 16:20 | disposition home or self-care (01) ==
LOC: FB.ED 14:57
DX: M54.5 Low back pain (principal); G89.29 Other chronic pain; R32 Unspecified urinary incontinence; I10 Essential (primary) hypertension; J44.9 Chronic obstructive pulmonary disease, unspecified; M19.90 Unspecified osteoarthritis, unspecified site; F41.9 Anxiety disorder, unspecified; F32.9 Major depressive disorder, single episode, unspecified; E66.9 Obesity, unspecified; Z88.8 Allergy status to other drugs, medicaments and biological substances; Z91.09 Other allergy status, other than to drugs and biological substances; Z68.32 Body mass index [BMI] 32.0-32.9, adult
CPT/HCPCS: 81001; 99283; A9270-GY